=== PATIENT | male | born 1985 | race Hispanic/Latino ===

== ENCOUNTER 2019-10-29 18:27 | Inpatient (IN) | payer SELFPAY ==
[2019-10-29 18:48] LABS: #Basophils 0.1 thou/uL (0.0-0.2); #Eosinphils 0.2 thou/uL (0.0-0.7); #Lymphocytes 1.5 thou/uL (1.20-3.40); #Monocytes 0.7 thou/uL (0.11-0.59); #Neutrophils 4.2 thou/uL (1.40-6.50); %Basophils 1.6 % (0.0-1.0); %Eosinophils 3.5 % (0.0-10.0); %Lymphocytes 22.6 % (21.0-51.0); %Monocytes 10.6 % (0.0-10.0); %Neutrophils 61.7 % (42.0-75.0); Hemoglobin 11.6 g/dL (14.0-18.0); Mean Corpuscular HGB CONC 31.9 g/dL (32.0-36.0); Mean Platelet Volume 8.6 fL (7.4-10.4); Platelet Count 385 thou/uL (130-400); RBC Distribution Width 13.9 % (11.5-14.5); Red Blood Cell (RBC) Count 3.86 mill/uL (4.70-6.10); White Blood Cell (WBC) Count 6.8 thou/uL (4.8-10.8)
[2019-10-29 19:14] LABS: ALT (SGPT) 19 U/L (8-55); AST (SGOT) 20 U/L (5-34); Albumin 3.2 g/dL (3.5-5.0); Alkaline Phosphatase 218 U/L (40-110); Anion Gap 17 mmol/L (10-20); BUN (Urea Nitrogen) 70 mg/dL (8.9-20.6); Bilirubin, Total 0.4 mg/dL (0.2-1.2); Calc. Creatinine Clearance 0 mL/min (70-130); Calcium 6.5 mg/dL (7.8-10.44); Carbon Dioxide 25 mmol/L (22-29); Chloride 102 mmol/L (98-107); Estimated GFR-MDRD 8; Globulin 3.8 g/dL (2.4-3.5); Glucose 117 mg/dL (70-105); Potassium 5.3 mmol/L (3.5-5.1); Sodium 139 mmol/L (136-145)
[2019-10-30] MEDS ORDERED: hydrALAZINE 20 MG/ML VIAL SLOW IVP PRN (00:01)
[2019-10-30 00:02] VITALS: BMI 29.0
[2019-10-30] MEDS ORDERED: Acetaminophen 325 MG TAB PO PRN (00:42)
[2019-10-30] MEDS ORDERED: HYDROcodone/Acetaminophen 5/325 mg Tablet PO PRN (00:42)
[2019-10-30] MEDS ORDERED: Dextrose 50% Abboject 50 ML SYRINGE SLOW IVP PRN (00:42)
[2019-10-30] MEDS ORDERED: Ondansetron PF 4 MG/2 ML Vial IVP PRN (00:42)
[2019-10-30] MEDS ORDERED: HumaLOG 300 UNITS/3 ML VIAL SC PRN (00:42)
[2019-10-30] MEDS ORDERED: Dextrose 5% in Water 1,000 ML IV PRN (00:42)
[2019-10-30] MEDS ORDERED: Furosemide 100 MG/10 ML VIAL SLOW IVP SCH (01:15)
[2019-10-30] MEDS ORDERED: Metolazone 5 MG TAB PO SCH (01:30)
[2019-10-30] MEDS ORDERED: Metoprolol Tartrate 50 MG TAB PO SCH (01:30)
[2019-10-30] MEDS: Furosemide 100 MG/10 ML VIAL SLOW IVP SCH ×2 (05:54→14:00)
[2019-10-30 06:07] LABS: #Basophils 0.1 thou/uL (0.0-0.2); #Eosinphils 0.2 thou/uL (0.0-0.7); #Lymphocytes 1.2 thou/uL (1.20-3.40); #Monocytes 0.6 thou/uL (0.11-0.59); #Neutrophils 3.7 thou/uL (1.40-6.50); %Basophils 1.7 % (0.0-1.0); %Eosinophils 3.3 % (0.0-10.0); %Lymphocytes 21.3 % (21.0-51.0); %Monocytes 10.9 % (0.0-10.0); %Neutrophils 62.9 % (42.0-75.0); Hemoglobin 11.1 g/dL (14.0-18.0); Mean Corpuscular HGB CONC 33.2 g/dL (32.0-36.0); Mean Corpuscular Hemoglobin 31.1 pg (27.0-31.0); Mean Corpuscular Volume 93.9 fL (78.0-98.0); Mean Platelet Volume 8.3 fL (7.4-10.4); Platelet Count 324 thou/uL (130-400); RBC Distribution Width 13.6 % (11.5-14.5); Red Blood Cell (RBC) Count 3.55 mill/uL (4.70-6.10); White Blood Cell (WBC) Count 5.9 thou/uL (4.8-10.8)
[2019-10-30 06:24] LABS: Albumin 3.1 g/dL (3.5-5.0); Anion Gap 18 mmol/L (10-20); BUN (Urea Nitrogen) 74 mg/dL (8.9-20.6); BUN/Creatinine Ratio 8.86; Calc. Creatinine Clearance 14 mL/min (70-130); Calcium 6.5 mg/dL (7.8-10.44); Carbon Dioxide 22 mmol/L (22-29); Chloride 107 mmol/L (98-107); Estimated GFR-MDRD 7; Glucose 83 mg/dL (70-105); Phosphorus 6.4 mg/dL (2.3-4.7); Potassium 5.2 mmol/L (3.5-5.1); Sodium 142 mmol/L (136-145)
[2019-10-30] MEDS: Calcium Carbonate 500 MG ChewTAB PO SCH ×2 (09:18→20:07)
[2019-10-30] MEDS: Heparin 5,000 UNITS/ML VIAL SC SCH ×2 (09:19→20:07)
[2019-10-30] MEDS: Famotidine 20 MG TAB PO SCH (09:19)
[2019-10-30] MEDS: Metolazone 5 MG TAB PO SCH ×2 (09:20→18:46)
[2019-10-30] MEDS: Metoprolol Tartrate 50 MG TAB PO SCH ×2 (10:21→20:07)
--- NOTE | 2019-10-30 11:52 | CON ---
DATE OF CONSULTATION: HISTORY OF PRESENT ILLNESS: Mr. Barnett is a 34-year-old male, who was admitted for his chronic renal failure. He was initially evaluated at [place] [facility], was noted to have elevated potassium. At that time, this was observed and he was sent here for further management. Recheck potassium showed it was less than 6. We are now being consulted for his hemodialysis. Please note, this patient was initially admitted at [facility]. He underwent daily dialysis. Due to insurance issues, the patient will discharge without any outpatient dialysis placement. REVIEW OF SYSTEMS: No chest pain or shortness of breath. Positive for leg edema. No nausea. No vomiting. No diarrhea. No constipation. No productive cough. No fever or chills. No headache. No diplopia. No syncopal episode. No sore throat. No hematochezia. No melena. No hematemesis. MEDICATIONS: 1. Calcium carbonate 1000 mg p.o. b.i.d. 2. Famotidine 20 mg daily. 3. Furosemide 80 mg IV daily. 4. Heparin 5000 units subcu b.i.d. 5. Humalog sliding scale. 6. Hydrocodone one tab q.4 p.r.n. 7. Metoprolol tartrate 50 mg b.i.d. PAST MEDICAL HISTORY: 1. Chronic renal failure of uncertain etiology. 2. Longstanding hypertension. PAST SURGICAL HISTORY: 1. Status post eye surgery. 2. Status post hemodialysis catheter placement. SOCIAL HISTORY: The patient lives in [place]. 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 He is . No children. No smoking. No alcohol intake. Education, primary grade. No IV drug abuse. No alcohol use. ALLERGIES: UNKNOWN. TRAUMA: None. IMMUNIZATION: Unknown. HOSPITALIZATIONS: Please see past medical history. FAMILY HISTORY: No family history of ESRD. PHYSICAL EXAMINATION: VITAL SIGNS: Blood pressure 156/93, heart rate 77, respiratory rate 18, temperature 98.4, and pulse ox 97%. GENERAL: The patient is awake, alert, comfortable, not in overt distress. SKIN: Adequate turgor. HEENT: He has pinkish conjunctivae. Anicteric sclerae. No neck mass. No carotid bruits. No JVD. CHEST: No deformities. LUNGS: Clear breath sounds. HEART: Normal sinus rhythm. No murmur. No gallops. No rubs. ABDOMEN: Globular, soft, nontender. No masses. EXTREMITIES: No edema. No deformities. NEUROLOGIC: Awake, oriented to 3 spheres. Moving all extremities. No tremors. No asterixis. No ataxia. LABORATORY DATA: October 30, 2019; sodium 142, potassium 5.2, chloride 107, carbon dioxide 22, BUN 74, creatinine 8.35, glucose 83, calcium 6.5, phosphorus 6.4, albumin 3.1. ASSESSMENT/PLAN: 1. Chronic renal failure, uncertain etiology. I was reviewing the [facility] lab work and he had ? of kappa light change. This patient may eventually need hematologic evaluation and/or renal biopsy. Due to insurance issues, the patient cannot do outpatient renal biopsy. Due to the advanced renal dysfunction, we will be dialyzing this patient. Surgical consult has been done for placement of a temporary femoral dialysis catheter. He eventually will be referred to either Dr. Seay or Dr. Mcdonald for placement of a cuffed hemodialysis catheter as well as AV fistula placement. My plan is to do daily dialysis with this patient. 2. Hyperphosphatemia/hypocalcemia. Start PhosLo 667 mg one tablet t.i.d. with meals. We will be doing several serologies with this patient. 3. We will start hemodialysis once the femoral dialysis catheter is placed. Job ID: [id number]
[2019-10-30] MEDS: Calcium Acetate 667 MG CAP PO SCH ×2 (12:00→18:44)
[2019-10-30] MEDS ORDERED: Lidocaine 1% (PF) 30 ML VIAL ONE (12:18)
[2019-10-30] MEDS ORDERED: Morphine 4 MG/ML VIAL ONE (13:13)
[2019-10-30] MEDS ORDERED: Morphine 4 MG/ML VIAL SLOW IVP SCH (13:15)
--- NOTE | 2019-10-30 15:21 | PDOC.HOSPP ---
- Subjective Encounter Date: 10/30/19 Encounter Time: 08:31 Subjective: 34 y/o male with CKD requirining HD recently discharged from another hospital admitted for treatment of hyperkalemia. Hemodialyis is planned. - Objective Vital Signs & Weight: Vital Signs (12 hours) Temp Pulse Resp BP BP Pulse Ox 10/30/19 08:00 98.4 F 77 18 156/93 H 97 10/30/19 03:45 98.7 F 72 16 147/94 H 99 Weight Weight 169 lb I&O: 10/29/19 10/30/19 10/31/19 06:59 06:59 06:59 Intake Total 240 Output Total 400 200 Balance -160 -200 Result Diagrams: 10/30/19 05:53 10/30/19 05:53 Additional Labs: Accuchecks 10/30/19 10/30/19 11:02 06:02 POC Glucose 77 86 Hospitalist ROS - Medication Medications: Active Medications Generic Name Dose Route Start Last Admin Trade Name Freq PRN Reason Stop Dose Admin Calcium Carbonate 1,000 mg 10/30/19 09:00 10/30/19 09:18 Tums PO Not Given BID [facility] Famotidine 20 mg 10/30/19 09:00 10/30/19 09:19 Pepcid PO Not Given DAILY [facility] Furosemide 80 mg 10/30/19 06:00 10/30/19 05:54 Lasix SLOW IVP 80 mg 0600,1400 LIZZ Administration Heparin Sodium (Porcine) 5,000 units 10/30/19 09:00 10/30/19 09:19 Heparin SC Not Given BID [facility] Metolazone 5 mg 10/30/19 09:00 10/30/19 09:20 Zaroxolyn PO Not Given 0900,1700 [facility] Metoprolol Tartrate 50 mg 10/30/19 09:00 10/30/19 10:21 Lopressor PO Not Given BID [facility] - Exam General Appearance: awake alert Eye: anicteric sclera ENT: normocephalic atraumatic, moist mucosa Neck: supple Heart: RRR, no murmur Respiratory: no wheezes, no ronchi, normal chest expansion Gastrointestinal: soft, non-tender, non-distended, normal bowel sounds Extremities: 2+ LE edema Neurological: cranial nerve grossly intact, no focal deficits Psychiatric: A&O x 3 Hosp A/P (1) ESRD (end stage renal disease) Code(s): N18.6 - END STAGE RENAL DISEASE Status: Acute (2) Hypocalcemia Code(s): E83.51 - HYPOCALCEMIA Status: Acute (3) Hyperphosphatemia Code(s): E83.39 - OTHER DISORDERS OF PHOSPHORUS METABOLISM Status: Acute (4) Hyperkalemia Code(s): E87.5 - HYPERKALEMIA Status: Acute (5) Volume overload Code(s): E87.70 - FLUID OVERLOAD, UNSPECIFIED Status: Acute (6) HTN (hypertension) Code(s): I10 - ESSENTIAL (PRIMARY) HYPERTENSION Status: Acute - Plan Start diuretics. Hemodialysis as per Nephrology Replete electrolytes as needed. Get Vit D.
--- NOTE | 2019-10-30 16:34 | OP ---
DATE OF PROCEDURE: 10/30/2019 PREOPERATIVE DIAGNOSIS: Chronic renal failure. POSTOPERATIVE DIAGNOSIS: Chronic renal failure. PROCEDURE PERFORMED: Placement of left femoral triple-lumen Trialysis catheter. ANESTHESIA: Local. INDICATIONS FOR PROCEDURE: A 34-year-old man, presented with end-stage renal disease. I was asked to place a temporary dialysis access to facilitate hemodialysis. DESCRIPTION OF PROCEDURE: Informed consent was obtained from the patient and was placed in the supine position. First, the right groin was sterilely prepped and draped in the usual fashion. The right femoral artery was palpated, and the skin medial to this was anesthetized with 1% lidocaine. The right femoral vein was then cannulated with an 18-gauge introducer needle. Guidewire was passed through the needle and attempt to advance this into the right femoral vein multiple times was without success. We then elected to abandon the right groin. Pressure was held to achieve hemostasis. Using a new set and a new gown, glove, and dressing, we approached the left groin, which was separately sterilely prepped and draped in the usual fashion. Left femoral artery was palpated, and the skin medial to this was then anesthetized with 1% lidocaine at the groin. The left femoral vein was cannulated with an 18-gauge introducer needle returning dark venous blood. Guidewire was passed through the needle and advanced to the left femoral vein without resistance. Needle was withdrawn over the guidewire. A stab incision was made adjacent to the guidewire using 11 scalpel. Dilator was passed over the guidewire dilating the subcutaneous tissues and advanced into the left femoral vein. The dilator was removed and a triple-lumen Trialysis catheter was then advanced over the guidewire and placed in the left femoral vein advancing this down to the hub. Guidewire was removed. Dark venous blood was aspirated from all three ports, which were individually flushed with saline, followed by heparin. Catheter was secured to the left groin using 3-0 nylon suture at two points. Sterile dressings were applied. The patient tolerated this procedure without any apparent complication, and we will proceed with hemodialysis at the discretion of the nephrology service. Job ID: [id number]
[2019-10-30 23:18] LABS: Bacteria/HPF 1+ HPF (None Seen); Bilirubin Negative (Negative); Blood, Urine 1+ (Negative); Clarity Clear (Clear); Glucose, Urine (Dipstick) 50 mg/dL (Negative); Leukocyte Negative Leu/uL (Negative); Nitrite Negative (Negative); Protein, Urine (Dipstick) 300 mg/dL (Neg-Trace); RBC/HPF 0-3 HPF (0-3); Squamous Epithelial None Seen HPF (0-3); Urobilinogen Normal mg/dL (Less than 2)
[2019-10-31 04:20] LABS: Anion Gap 13 mmol/L (10-20); BUN (Urea Nitrogen) 46 mg/dL (8.9-20.6); Calc. Creatinine Clearance 18 mL/min (70-130); Calcium 7.3 mg/dL (7.8-10.44); Carbon Dioxide 29 mmol/L (22-29); Chloride 104 mmol/L (98-107); Estimated GFR-MDRD 11; Glucose 72 mg/dL (70-105); Phosphorus 5.2 mg/dL (2.3-4.7); Potassium 4.4 mmol/L (3.5-5.1); Sodium 142 mmol/L (136-145)
[2019-10-31 05:23] LABS: Hemoglobin 10.1 g/dL (14.0-18.0); MDiff Complete? YES; Mean Corpuscular HGB CONC 32.7 g/dL (32.0-36.0); Mean Corpuscular Hemoglobin 30.5 pg (27.0-31.0); Mean Corpuscular Volume 93.3 fL (78.0-98.0); Mean Platelet Volume 8.6 fL (7.4-10.4); Platelet Count 318 thou/uL (130-400); RBC Distribution Width 13.7 % (11.5-14.5); Red Blood Cell (RBC) Count 3.31 mill/uL (4.70-6.10); White Blood Cell (WBC) Count 5.8 thou/uL (4.8-10.8)
[2019-10-31 05:24] LABS: Band 1 % (5-11); Eosinophils 5 % (0-10); Lymphocytes 28 % (21-51); Monocytes 14 % (0-10); Neutrophil 50 % (42-75); Platelet Morphology Comment Appears Adequate
[2019-10-31] MEDS: Furosemide 100 MG/10 ML VIAL SLOW IVP SCH (05:34)
--- NOTE | 2019-10-31 07:25 | PDOC.HOSPP ---
- Subjective Encounter Date: 10/31/19 Encounter Time: 07:22 Subjective: 34 y/o male with CKD requirining HD recently discharged from another hospital admitted for treatment of hyperkalemia. Had Hd yesterday. - Objective Vital Signs & Weight: Vital Signs (12 hours) Temp Pulse Resp BP Pulse Ox 10/30/19 20:00 98.5 F 91 16 160/90 H 97 Weight Weight 169 lb I&O: 10/30/19 10/31/19 11/01/19 06:59 06:59 06:59 Intake Total 240 2040 Output Total 400 1550 Balance -160 490 Result Diagrams: 10/31/19 03:33 10/31/19 03:33 Additional Labs: Accuchecks 10/31/19 10/30/19 10/30/19 05:37 20:18 11:02 POC Glucose 69 L 92 77 Hospitalist ROS - Medication Medications: Active Medications Generic Name Dose Route Start Last Admin Trade Name Freq PRN Reason Stop Dose Admin Calcium Acetate 1,334 mg 10/30/19 12:00 10/30/19 18:44 Phoslo PO 1,334 mg TID-WM LIZZ Administration Calcium Carbonate 1,000 mg 10/30/19 09:00 10/30/19 20:07 Tums PO 1,000 mg BID [facility] Administration Famotidine 20 mg 10/30/19 09:00 10/30/19 09:19 Pepcid PO Not Given DAILY [facility] Furosemide 80 mg 10/30/19 06:00 10/31/19 05:34 Lasix SLOW IVP 80 mg 0600,1400 LIZZ Administration Heparin Sodium (Porcine) 5,000 units 10/30/19 09:00 10/30/19 20:07 Heparin SC 5,000 units BID LIZZ Administration Metolazone 5 mg 10/30/19 09:00 10/30/19 18:46 Zaroxolyn PO 5 mg 0900,1700 LIZZ Administration Metoprolol Tartrate 50 mg 10/30/19 09:00 10/30/19 20:07 Lopressor PO 50 mg BID LIZZ Administration - Exam General Appearance: awake alert Eye: anicteric sclera ENT: normocephalic atraumatic Neck: symmetric, no JVD Heart: RRR Respiratory: no wheezes, no rales, no ronchi, normal chest expansion Gastrointestinal: soft, non-tender, non-distended, normal bowel sounds Extremities: 2+ LE edema Neurological: cranial nerve grossly intact, no focal deficits Psychiatric: A&O x 3 Hosp A/P (1) Hyperkalemia Code(s): E87.5 - HYPERKALEMIA Status: Acute (2) Acute renal failure (ARF) Status: Acute (3) Hypocalcemia Code(s): E83.51 - HYPOCALCEMIA Status: Acute (4) Hyperphosphatemia Code(s): E83.39 - OTHER DISORDERS OF PHOSPHORUS METABOLISM Status: Acute (5) Volume overload Code(s): E87.70 - FLUID OVERLOAD, UNSPECIFIED Status: Acute (6) HTN (hypertension) Code(s): I10 - ESSENTIAL (PRIMARY) HYPERTENSION Status: Acute - Plan Dialysis as per renal continue diuretics. Adjust antihypertensives to get adequate BP control.
[2019-10-31] MEDS: Calcium Acetate 667 MG CAP PO SCH ×3 (08:50→17:50)
[2019-10-31] MEDS: Heparin 5,000 UNITS/ML VIAL SC SCH ×2 (09:06→20:35)
[2019-10-31] MEDS: Metolazone 5 MG TAB PO SCH ×2 (09:06→17:50)
[2019-10-31] MEDS: Metoprolol Tartrate 50 MG TAB PO SCH (09:06)
[2019-10-31] MEDS: Calcium Carbonate 500 MG ChewTAB PO SCH (09:06)
[2019-10-31] MEDS: Famotidine 20 MG TAB PO SCH (09:06)
--- NOTE | 2019-10-31 10:36 | PRG ---
DATE OF SERVICE: 10/31/2019 SUBJECTIVE: Mr. Barnett is a 34-year-old male, admitted for his chronic renal failure. He is currently undergoing hemodialysis. They were unable to place outpatient dialysis due to insurance issues. He has no new complaints today. He did undergo hemodialysis yesterday. My plan is to do another dialysis treatment. Surgical consult will be done with Dr. Seay/Harry for AV fistula placement. No new complaints. OBJECTIVE: VITAL SIGNS: Blood pressure 170/89, heart rate 75, respiratory rate 18, temperature 98.3, and pulse ox 96%. GENERAL: Noted to be awake, alert, comfortable, not in distress. SKIN: Adequate turgor. HEENT: He has pinkish conjunctivae. Anicteric sclerae. NECK: No neck mass. No carotid bruits. No JVD. CHEST: No deformities. LUNGS: Clear breath sounds. No wheezing. No crackles. HEART: Normal sinus rhythm. No murmur. No gallops. No rubs. ABDOMEN: Globular, soft, nontender. No masses. EXTREMITIES: No edema. No deformities. MEDICATIONS: Medications of October 31, 2019, was reviewed. LABORATORY DATA: Laboratories of October 31, 2019; white count 5.8, hemoglobin 10.1. Sodium 142, potassium 4.4, chloride 104, carbon dioxide 29, BUN 46, creatinine 6.16, calcium 7.3, PTH 401.9, phosphorus 5.2, vitamin D is 12.8. Urinalysis shows protein of 300. MIKEL, ANCA pending. ASSESSMENT AND PLAN: 1. Chronic renal failure/end-stage renal disease, hemodialysis today and tomorrow again. Fluid removal only as tolerated. 2. Surgical referral for arteriovenous fistula placement has been made as well as for a cuffed dialysis catheter placement. He does have a temporary femoral dialysis catheter. 3. Secondary hyperparathyroidism, calcitriol 0.25 mcg tablet daily. 4. Hyperphosphatemia. Start PhosLo. 5. Hypocalcemia. The patient is already on calcium supplementation. Overall, agree with current management. Recheck basic metabolic panel, CBC, PT, PTT in a.m. Consult surgery for arteriovenous fistula. Job ID: [id number]
[2019-10-31] MEDS ORDERED: Heparin 10,000 UNITS/1 ML VIAL ONE (11:19)
[2019-11-01 04:49] LABS: PTT 28.4 SEC (22.9-36.1); Prothrombin Time 13.5 SEC (12.0-14.7)
[2019-11-01 05:17] LABS: Albumin 2.6 g/dL (3.5-5.0); Anion Gap 12 mmol/L (10-20); BUN (Urea Nitrogen) 28 mg/dL (8.9-20.6); BUN/Creatinine Ratio 5.59; Calc. Creatinine Clearance 23 mL/min (70-130); Calcium 7.2 mg/dL (7.8-10.44); Carbon Dioxide 31 mmol/L (22-29); Chloride 102 mmol/L (98-107); Estimated GFR-MDRD 13; Glucose 114 mg/dL (70-105); Phosphorus 4.5 mg/dL (2.3-4.7); Potassium 3.9 mmol/L (3.5-5.1); Sodium 141 mmol/L (136-145)
[2019-11-01 05:37] LABS: Band 1 % (5-11); Eosinophils 3 % (0-10); Hemoglobin 10.3 g/dL (14.0-18.0); Lymphocytes 15 % (21-51); MDiff Complete? YES; Mean Corpuscular HGB CONC 32.5 g/dL (32.0-36.0); Mean Corpuscular Hemoglobin 30.7 pg (27.0-31.0); Mean Corpuscular Volume 94.5 fL (78.0-98.0); Mean Platelet Volume 8.5 fL (7.4-10.4); Monocytes 12 % (0-10); Neutrophil 69 % (42-75); Platelet Count 314 thou/uL (130-400); RBC Distribution Width 13.9 % (11.5-14.5); Red Blood Cell (RBC) Count 3.34 mill/uL (4.70-6.10); Schistocytes SLIGHT = 2-5 cells (100X) (0-1/hpf); White Blood Cell (WBC) Count 6.7 thou/uL (4.8-10.8)
[2019-11-01] MEDS ORDERED: CEFAZOLIN 2 GM in Premix Bag 1 BAG IVPB SCH (07:30)
--- NOTE | 2019-11-01 08:05 | HP ---
PRESENTING COMPLAINT: Referred for elevated potassium. HISTORY OF PRESENT ILLNESS: Anibal Wade is a 34-year-old male with past medical history of hypertension, on lisinopril; diabetes mellitus type 2, diagnosed 3 years ago; recently diagnosed ESRD during hospitalization at [facility] one week ago. He received temporary catheter was removed and he was discharged home. [facility], where repeat labs show potassium of 7.1. He was asked to come to the ED. Repeat potassium in the ED was down to 5.3. The patient admits to regular and food intake. He denies any shortness of breath, but admits to persistent body swelling. He admits to still making urine with no change in urine volume. He denies any hematuria or proteinuria and there is no family history of dialysis use. PAST MEDICAL HISTORY: Hypertension recently, diabetes mellitus x 3 years. SOCIAL HISTORY: The patient denies any tobacco, alcohol, or illicit drug use. He is undocumented immigrant. PAST SURGICAL HISTORY: None. ALLERGIES: NO KNOWN DRUG ALLERGIES. HOME MEDICATIONS: Lisinopril 10 mg daily. FAMILY HISTORY: No history of ESRD. REVIEW OF SYSTEMS: All systems reviewed, x14 were negative except as mentioned above. PHYSICAL EXAMINATION: VITAL SIGNS: Current vitals; blood pressure of 172/105, pulse of 96, respiratory rate of 16, O2 saturation 99% on room air, temperature 98.6. GENERAL: Young male, overweight, not in any distress. HEENT: Head is atraumatic, normocephalic. Pupils equal, reactive to light. [place] conjunctivae. Moist oral mucosa. NECK: No JVD. No carotid bruit. RESPIRATORY: Mild bibasilar crepitations, but good air entry. CARDIOVASCULAR: S1 and S2. Rate and rhythm regular. GI: Abdomen full, soft. Bowel sounds positive. No organomegaly. EXTREMITIES: 2+ pedal edema bilaterally up to the mid palomares. No calf tenderness. NEUROLOGICAL: The patient is alert, oriented, conversant. Sister at bedside providing interpretation. LABORATORY DATA: Potassium 5.3, bicarb 25, BUN 70, creatinine 8, calcium 6.5, glucose 117, albumin 3.2, hemoglobin 11.6, WBC 6.8, platelets 385 with no bands. IMPRESSION: 1. Hyperkalemia. 2. End-stage renal disease. 3. History of diet-controlled diabetes mellitus. 4. Hypertension. PLAN: 1. Hyperkalemia. We will admit the patient to observation given undocumented status. We will consult Nephrology for possible PermCath placement with scheduled weekly dialysis if feasible or AVF creation and p.r.n. dialysis via AV fistula. At this time, there is no urgency to dialysis now. Since the patient is nonoliguric, we will start the patient on IV Lasix with metolazone to aid potassium excretion as well as control the patient's volume status. Follow repeat BMP in a.m. We will treat mild hypocalcemia with starting Tums. Follow phosphorus level. We will hold for the lisinopril use as it is contributing to hyperkalemia. We will do metoprolol for blood pressure control at this time. We will dose IV Lasix 80 mg x1 now. 2. DVT prophylaxis with subcutaneous heparin at q.12. 3. Advanced directives. The patient is full code. We will consult Case Management to help with manager of financial reporting. Job ID: [id number]
[2019-11-01] MEDS: Calcium Acetate 667 MG CAP PO SCH ×3 (08:12→17:19)
[2019-11-01] MEDS: Famotidine 20 MG TAB PO SCH (08:12)
[2019-11-01] MEDS: Metolazone 5 MG TAB PO SCH ×2 (08:13→17:19)
[2019-11-01] MEDS: Calcitriol 0.25 MCG CAP PO SCH (08:13)
[2019-11-01] MEDS: Heparin 5,000 UNITS/ML VIAL SC SCH ×2 (08:15→20:18)
--- NOTE | 2019-11-01 09:07 | PRG ---
DATE OF SERVICE: 11/01/2019 SUBJECTIVE: Mr. Barnett is a 34-year-old white male with chronic renal failure and undergoing hemodialysis. He is unable to do outpatient dialysis due to insurance issues. Surgical consult has been done with Dr. Seay for AV fistula/cuffed hemodialysis catheter placement. No new complaints today. He underwent dialysis yesterday without any difficulty. No complaints of chest pain or shortness of breath. OBJECTIVE: VITAL SIGNS: Blood pressure 165/90, heart rate 96, respiratory rate 16, temperature 98.2, and pulse ox 98% on room air. GENERAL: Awake, alert, and comfortable, not in distress. SKIN: Adequate turgor. HEENT: He has pinkish conjunctivae. Anicteric sclerae. NECK: No neck mass. No carotid bruits. No JVD. CHEST: No deformities. LUNGS: Clear breath sounds. No wheezing. No crackles. HEART: Normal sinus rhythm. No murmurs. No gallops. No rubs. ABDOMEN: Globular, soft, and nontender. No masses. EXTREMITIES: No edema. No deformities. MEDICATIONS: Medications of November 01, 2019, were reviewed. LABORATORY DATA: Laboratories of November 01, 2019; white count 6.7, hemoglobin 10.3. Sodium 141, potassium 3.9, chloride 102, carbon dioxide 31, BUN 58, creatinine 5.01, glucose 114, calcium 7.2, and albumin 2.6. ASSESSMENT AND PLAN: 1. End-stage renal disease/chronic renal failure, hemodialysis 3 times a week. Awaiting placement of arteriovenous fistula and cuffed hemodialysis catheter. 2. Hyperphosphatemia, currently on PhosLo. 3. Elevated PTH - calcitriol has been initiated. Continue current management. Awaiting permanent access placement. Recheck basic metabolic and CBC in a.m. Job ID: [id number]
--- NOTE | 2019-11-01 09:07 | PDOC.HOSPP ---
- Subjective Encounter Date: 11/01/19 Encounter Time: 12:40 Subjective: Patient without complaints. Had tunneled cath and AV fistula done this AM - Objective Vital Signs & Weight: Vital Signs (12 hours) Temp Pulse Resp BP Pulse Ox 11/01/19 07:34 98.2 F 96 16 165/90 H 98 Weight Weight 169 lb I&O: 10/31/19 11/01/19 11/02/19 06:59 06:59 06:59 Intake Total 2040 3175 Output Total 1550 3850 Balance 490 -675 Result Diagrams: 11/01/19 04:06 11/01/19 04:06 Additional Labs: Accuchecks 11/01/19 10/31/19 10/31/19 05:37 20:37 16:07 POC Glucose 111 H 118 H 137 H 10/31/19 10:53 POC Glucose 114 H Hospitalist ROS - Review of Systems Constitutional: denies: fever, chills Respiratory: denies: cough, shortness of breath Cardiovascular: denies: chest pain, palpitations Gastrointestinal: denies: nausea, vomiting, abdominal pain - Medication Medications: Active Medications Generic Name Dose Route Start Last Admin Trade Name Freq PRN Reason Stop Dose Admin Calcitriol 0.25 mcg 11/01/19 09:00 11/01/19 08:13 Rocaltrol PO Not Given DAILY [facility] Calcium Acetate 1,334 mg 10/30/19 12:00 11/01/19 08:12 Phoslo PO Not Given TID-WM [facility] Famotidine 20 mg 10/30/19 09:00 11/01/19 08:12 Pepcid PO Not Given DAILY [facility] Heparin Sodium (Porcine) 5,000 units 10/30/19 09:00 11/01/19 08:15 Heparin SC Not Given BID [facility] Metolazone 5 mg 10/30/19 09:00 11/01/19 08:13 Zaroxolyn PO Not Given 0900,1700 [facility] - Exam General Appearance: NAD Eye: anicteric sclera ENT: moist mucosa Heart: RRR, no murmur, no gallops, no rubs Respiratory: CTAB, no wheezes, no rales, no ronchi Respiratory - other findings: right upper chest with tunneled dialysis cath in place Gastrointestinal: soft, non-tender, non-distended, normal bowel sounds Extremities - other findings: right wrist AV fistula incision C/D/I Psychiatric: normal affect, normal behavior Hosp A/P (1) Chronic renal failure, stage 5 Code(s): N18.5 - CHRONIC KIDNEY DISEASE, STAGE 5 Status: Acute Plan: initiating dialysis, cuffed dialysis catheter and AV fistula placement done (2) Hyperkalemia Code(s): E87.5 - HYPERKALEMIA Status: Resolved (3) Hyperphosphatemia Code(s): E83.39 - OTHER DISORDERS OF PHOSPHORUS METABOLISM Status: Resolved Plan: on Phoslo (4) Hypocalcemia Code(s): E83.51 - HYPOCALCEMIA Status: Acute Plan: on calcium supplementation and calcitriol (5) HTN (hypertension) Code(s): I10 - ESSENTIAL (PRIMARY) HYPERTENSION Status: Chronic Qualifiers: Hypertension type: essential hypertension Qualified Code(s): I10 - Essential (primary) hypertension (6) Volume overload Code(s): E87.70 - FLUID OVERLOAD, UNSPECIFIED Status: Resolved
[2019-11-01] MEDS ORDERED: Fentanyl 100 MCG/2 ML VIAL ONE (09:40)
[2019-11-01] MEDS ORDERED: Midazolam HCl 2 mg/2 ml Vial ONE (09:40)
[2019-11-01] MEDS ORDERED: Heparin 5,000 UNITS/ML VIAL ONE (09:45)
[2019-11-01] MEDS ORDERED: Protamine Sulfate 50 MG/5 ML VIAL ONE (09:45)
[2019-11-01] MEDS ORDERED: Sodium Chloride 0.9% 20 ML ONE (09:45)
[2019-11-01] MEDS ORDERED: Lidocaine 2% w/Epinephrine 1:200K 20 ML VIAL ONE (09:45)
[2019-11-01] MEDS ORDERED: Heparin 10,000 UNITS/1 ML VIAL ONE (09:45)
[2019-11-01] MEDS ORDERED: Bupivacaine PF 0.5% 30 ML VIAL ONE (09:45)
--- NOTE | 2019-11-01 10:00 | ULT ---
BILATERAL UPPER EXTREMITY VENOUS ULTRASOUND: TECHNIQUE: Huffman-scale and Doppler color-flow with spectral analysis. CLINICAL HISTORY: ESRD. FINDINGS: Right upper extremity: Brachial artery 4.1 mm. Radial artery 1.9 mm. Ulnar artery 1.7 mm. Cephalic size: 2.5 mm 2.7 mm 3.0 mm 3.7 mm 1.7 mm 1.8 mm 0.8 mm Left upper extremity: Brachial artery 3.3 mm. Radial artery 1.3 mm. Ulnar artery 1.6 mm. Cephalic size: 3.2 mm 2.7 mm Partially occlusive thrombus 3.8 mm 1.6 mm 1.8 mm 1.2 mm Basilic size: 2.2 mm 2.0 mm 2.3 mm 1.6 mm 1.5 mm 0.6 mm 0.5 mm IMPRESSION: Bilateral upper extremity vein mapping, as above. Transcribed Date/Time: 11/01/2019 10:19 AM
[2019-11-01] MEDS ORDERED: traMADol HCl 50 MG TAB PO PRN (10:21)
[2019-11-01] MEDS ORDERED: Acetaminophen 500 MG TAB PO PRN (10:21)
--- NOTE | 2019-11-01 10:43 | CON ---
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 He was hospitalized recently at [facility], had a right IJ cuffed tunneled dialysis catheter placed, underwent dialysis, and then it was removed. He reports now in need of dialysis. He has had a temporary dialysis catheter placed over the weekend and dialyzed two sessions. He has had ultrasound vein mapping staff this morning revealing the right arm superior to the left. There is nonocclusive thrombus in his left upper arm cephalic vein. He has palpable radial pulses. Plan is to place a cuffed tunneled hemodialysis catheter, a central line, and a right arm AV fistula or graft. He understands risks and benefits and consents. ALLERGIES: NONE. SOCIAL HISTORY: Tobacco, none. Alcohol, none. MEDICATIONS: In the hospital, 1. Calcitriol. 2. PhosLo. 3. Pepcid. 4. Zaroxolyn. LABORATORY DATA: Accu-Cheks 114 to 137. ASSESSMENT AND PLAN: 1. End-stage renal disease, in need of dialysis access. He is followed by Dr. Farris. Plan is to place a right IJ cuffed tunneled dialysis catheter and a central line to protect his veins as he already has a nonocclusive thrombus in the left upper arm cephalic vein. He is right-handed, and his veins were superior by vein mapping on the right. We will plan right arm primary fistula with less likely dialysis graft. 2. Illegal immigrant, difficult outpatient dialysis situation. He will probably need to return to [place] for dialysis versus having catastrophic dialysis. It is unlikely to be able to afford outpatient dialysis. Job ID: [id number]
[2019-11-01] MEDS ORDERED: Ondansetron HCl/PF 4 MG/2 ML Vial IVP PRN (12:09)
[2019-11-01] MEDS ORDERED: Promethazine HCl 25 MG/ML VIAL IM PRN (12:09)
[2019-11-01] MEDS ORDERED: Promethazine HCl 25 MG/ML VIAL SLOW IVP PRN (12:09)
--- NOTE | 2019-11-01 12:46 | RAD ---
FRONTAL VIEW CHEST: CLINICAL HISTORY: Dialysis. COMPARISON: No prior comparison. FINDINGS: There is abnormal hazy density throughout the majority of the right chest. Patchy left basilar opacit y is present. Tunneled right-sided vascular catheter is present and there is a partially imaged left venous catheter, terminating at the right atrial region. Cardiac silhouette and pulmonary vascul ature are prominent. No discrete pneumothorax within limitations is visualized. IMPRESSION: Findings favor fluid overload. Findings suggest pleural fluid superimposed upon edema. Followup to resolution is recommended. Transcribed Date/Time: 11/01/2019 12:50 PM
[2019-11-01 13:06] LABS: ANA Symphony (Qualitative) Negative (Negative); ANA Symphony (Quantitative) 0.2 Ratio (< 0.7 Negative); dsDNA IgG Antibody Less than 0.5 IU/mL (<10 Negative)
--- NOTE | 2019-11-01 16:26 | OP ---
DATE OF PROCEDURE: 11/01/2019 PREOPERATIVE DIAGNOSES: 1. End-stage renal disease. 2. Diabetes. POSTOPERATIVE DIAGNOSES: 1. End-stage renal disease. 2. Diabetes. PROCEDURES PERFORMED: 1. Right IJ cuffed tunneled hemodialysis catheter. 2. Left IJ central line, triple lumen. 3. Ultrasound and fluoroscopy use. 4. Right Nina fistula, calibrated to a 3.5 mm coronary dilator outflow, calcified radial artery, but patent. ANESTHESIA: General, local with 0.5% Marcaine 30 mL, mixed with 1% Xylocaine with epinephrine 30 mL. DESCRIPTION OF PROCEDURE: The patient was taken to the operating room, where under general anesthesia, neck and chest and right upper extremity were prepared with ChloraPrep and draped in routine fashion. Using ultrasound fluoroscopy, the right and left internal jugular vein hemodialysis catheter and triple-lumen catheter placed respectively using Seldinger technique and tunneling device. On the right side, the platysma was approximated with 4-0 Monocryl, skin with subdermal 4-0 Monocryl, catheter was secured with 3-0 nylon suture; and on the left side, the catheter was secured with 3-0 nylon suture. Each port aspirated blood, flushed with saline solution and heparinized saline solution on hemodialysis catheter. Sterile dressing was applied. Fluoroscopic images revealed good line placement, ultrasound used to cannulate the internal jugular vein for placement. Right Nina fistula performed by making an incision along suture since radial artery in the cephalic vein given the patient's cephalic vein dissected free, it has excellent caliber, calibrated to a 3.5 mm coronary dilator outflow after ligating the vein on the hand side and spatulating with Whitney scissors. Radial artery dissected free and a 2 cm anastomosis was created after spatulating the radial arteriotomy, created with 11 blade and continuous suture of 6-0 Prolene. Good Doppler signals noted on the outflow. Good hemostasis noted. Collateral branches divided between clips. Job ID: [id number]
[2019-11-02 04:20] LABS: Albumin 2.6 g/dL (3.5-5.0); Anion Gap 8 mmol/L (10-20); BUN (Urea Nitrogen) 35 mg/dL (8.9-20.6); BUN/Creatinine Ratio 5.78; Calc. Creatinine Clearance 19 mL/min (70-130); Calcium 6.9 mg/dL (7.8-10.44); Carbon Dioxide 34 mmol/L (22-29); Chloride 102 mmol/L (98-107); Estimated GFR-MDRD 11; Glucose 89 mg/dL (70-105); Phosphorus 5.2 mg/dL (2.3-4.7); Potassium 4.3 mmol/L (3.5-5.1); Sodium 140 mmol/L (136-145)
[2019-11-02 05:49] LABS: Band 2 % (5-11); Eosinophils 5 % (0-10); Lymphocytes 27 % (21-51); MDiff Complete? YES; Mean Corpuscular Hemoglobin 30.5 pg (27.0-31.0); Mean Corpuscular Volume 95.2 fL (78.0-98.0); Mean Platelet Volume 8.5 fL (7.4-10.4); Monocytes 8 % (0-10); Neutrophil 58 % (42-75); Ovalocytes SLIGHT = 2-5 cells (100X) (0-1/hpf); Platelet Count 306 thou/uL (130-400); RBC Distribution Width 13.9 % (11.5-14.5); Red Blood Cell (RBC) Count 3.27 mill/uL (4.70-6.10); White Blood Cell (WBC) Count 7.1 thou/uL (4.8-10.8)
[2019-11-02] MEDS ORDERED: Heparin 10,000 UNITS/1 ML VIAL ONE (07:29)
--- NOTE | 2019-11-02 09:06 | PDOC.HOSPP ---
- Subjective Encounter Date: 11/02/19 Encounter Time: 12:00 Subjective: Patient feeling well. No complaints. - Objective Vital Signs & Weight: Vital Signs (12 hours) Temp Pulse Resp BP Pulse Ox 11/02/19 00:01 98.3 F 80 16 142/81 H 94 L Weight Weight 169 lb I&O: 11/01/19 11/02/19 11/03/19 06:59 06:59 06:59 Intake Total 3175 0 Output Total 3850 Balance -675 0 Result Diagrams: 11/02/19 03:33 11/02/19 03:33 Additional Labs: Accuchecks 11/02/19 11/01/19 11/01/19 05:32 19:19 15:56 POC Glucose 83 105 117 H 11/01/19 13:30 POC Glucose 100 Hospitalist ROS - Review of Systems Constitutional: denies: fever, chills Respiratory: denies: cough, shortness of breath Cardiovascular: denies: chest pain, palpitations, orthopnea Gastrointestinal: denies: nausea, vomiting, abdominal pain - Medication Medications: Active Medications Generic Name Dose Route Start Last Admin Trade Name Freq PRN Reason Stop Dose Admin Calcitriol 0.25 mcg 11/01/19 09:00 11/01/19 08:13 Rocaltrol PO Not Given DAILY [facility] Calcium Acetate 1,334 mg 10/30/19 12:00 11/01/19 17:19 Phoslo PO 1,334 mg TID- LIZZ Administration Famotidine 20 mg 10/30/19 09:00 11/01/19 08:12 Pepcid PO Not Given DAILY [facility] Heparin Sodium (Porcine) 5,000 units 10/30/19 09:00 11/01/19 20:18 Heparin SC 5,000 units BID LIZZ Administration Tramadol HCl 50 mg 11/01/19 10:21 11/01/19 14:30 Ultram PO 50 mg Q4H PRN Administration Pain - Exam General Appearance: NAD Eye: anicteric sclera ENT: moist mucosa Heart: RRR, no murmur, no gallops, no rubs Respiratory: CTAB, no wheezes, no rales, no ronchi Gastrointestinal: soft, non-tender, non-distended, normal bowel sounds Psychiatric: normal affect, normal behavior, A&O x 3 Hosp A/P (1) Chronic renal failure, stage 5 Code(s): N18.5 - CHRONIC KIDNEY DISEASE, STAGE 5 Status: Acute (2) Hyperkalemia Code(s): E87.5 - HYPERKALEMIA Status: Resolved (3) Hyperphosphatemia Code(s): E83.39 - OTHER DISORDERS OF PHOSPHORUS METABOLISM Status: Resolved (4) Hypocalcemia Code(s): E83.51 - HYPOCALCEMIA Status: Acute (5) HTN (hypertension) Code(s): I10 - ESSENTIAL (PRIMARY) HYPERTENSION Status: Chronic Qualifiers: Hypertension type: essential hypertension Qualified Code(s): I10 - Essential (primary) hypertension (6) Volume overload Code(s): E87.70 - FLUID OVERLOAD, UNSPECIFIED Status: Resolved - Plan addiction social worker will need chronic dialysis but no insurance and not a citizen, will f/u with Dr. Farris in his clinic and go to the ER if needed
[2019-11-02] MEDS: Calcitriol 0.25 MCG CAP PO SCH ×2 (09:09→12:35)
[2019-11-02] MEDS: Calcium Acetate 667 MG CAP PO SCH ×2 (09:09→12:35)
[2019-11-02] MEDS: Famotidine 20 MG TAB PO SCH (09:09)
[2019-11-02] MEDS: Heparin 5,000 UNITS/ML VIAL SC SCH (09:09)
[2019-11-02] MEDS: Metolazone 5 MG TAB PO SCH (09:16)
--- NOTE | 2019-11-02 09:43 | PRG ---
DATE OF SERVICE: 11/02/2019 SUBJECTIVE: Mr. Barnett is a 34-year-old male, who was admitted for history of chronic renal failure/ESRD. He has undergone hemodialysis. In addition, Dr. Seay has placed an AV fistula and a cuffed hemodialysis catheter. Due to insurance issues, the patient is unable to proceed with outpatient dialysis. He is undergoing dialysis today. I did have a long discussion with the patient and I have spoken with his before regarding their situation. I did tell them that they can get in touch with the [facility] finisher brush to have them get their paperwork straighten out and hopefully in the future, he will qualify for outpatient dialysis. He has been told he can come back on a p.r.n. basis when he is clinically not feeling well. He will follow up with his PCP as well as in my clinic. OBJECTIVE: VITAL SIGNS: Blood pressure 142/81, heart rate 80, respiratory rate 16, temperature 98.3, and pulse ox 94%. GENERAL: Awake, alert, comfortable. SKIN: Adequate turgor. HEENT: He has slightly pale conjunctivae. Anicteric sclerae. No neck mass. No carotid bruits. No JVD. CHEST: No deformities. LUNGS: Clear breath sounds. HEART: Normal sinus rhythm. No murmur. No gallops. No rubs. ABDOMEN: Globular, soft, nontender. No masses. EXTREMITIES: No edema. No deformities. MEDICATIONS: Of November 02, 2019, reviewed. LABORATORY DATA: Of November 02, 2019: White count 7.1, hemoglobin 10. Sodium 140, potassium 4.3, chloride 102, carbon dioxide 34, BUN 35, creatinine 6.06, phosphorus 5.2, albumin 2.6. ASSESSMENT AND PLAN: 1. End-stage renal disease/chronic renal failure. Continue current hemodialysis while in the hospital. Due to the issues with his insurance, he is unable to proceed with outpatient dialysis. He will come back to any medical facility for emergent hemodialysis. He will follow up with his PCP and with my clinic. 2. Hyperphosphatemia. Continue phosphate binders. 3. Secondary hyperparathyroidism. Continue calcitriol. 4. Agree with current management. We will discontinue diuretics. The patient can be discharged at any time. Job ID: [id number]
[2019-11-02 10:11] LABS: A/G Ratio 0.8 (0.7-1.7); Albumin 2.5 g/dL (2.9-4.4); Alpha 1 0.2 g/dL (0.0-0.4); Alpha 2 0.8 g/dL (0.4-1.0); Beta 0.9 g/dL (0.7-1.3); Gamma 1.2 g/dL (0.4-1.8); Globulin, Total 3.1 g/dL (2.2-3.9); M-Spike Not Observed g/dL (Not Observed)
[2019-11-02 13:00] VITALS: BP 175/89; TEMP 97.7
--- NOTE | 2019-11-02 14:33 | EKG ---
Test Reason : Blood Pressure : / mmHG Vent. Rate : 104 BPM Atrial Rate : 104 BPM P-R Int : 142 ms QRS Dur : 086 ms QT Int : 368 ms P-R-T Axes : 029 125 010 degrees QTc Int : 483 ms Sinus tachycardia Right axis deviation Abnormal ECG Confirmed by ANGEL BASS DO ([id number]), digital editor VIANEY VAZQUEZ ([id number]) on 11/02/2019 2:33:09 PM Referred By: Confirmed By:ANGEL BASS DO
[2019-11-02 16:08] LABS: Cytoplasmic (C-ANCA) <1:20 titer (Neg:<1:20); Myeloperoxidase AutoAbs <9.0 U/mL (0.0-9.0); Perinuclear (P-ANCA) <1:20 titer (Neg:<1:20); Proteinase-3 AutoAbs Less than 3.5 U/mL (0.0-3.5)
--- NOTE | 2019-11-04 08:02 | DIS ---
DATE OF ADMISSION: 10/29/2019 DATE OF DISCHARGE: 11/02/2019 PRIMARY CARE PHYSICIAN: Teresita Ordaz. REASON FOR ADMISSION: Elevated potassium. DIAGNOSES AT DISCHARGE: 1. Hyperkalemia, resolved. 2. End-stage renal disease on dialysis. 3. Hyperphosphatemia. 4. Hypocalcemia. 5. Hypertension. 6. Diabetes mellitus type 2, not requiring any medications. PROCEDURES: 1. Right internal jugular cuffed tunneled hemodialysis catheter placement. 2. Right Nina fistula to the right forearm. 3. Left femoral triple-lumen catheter placement. 4. Left internal jugular vein catheter placement. CONSULTATIONS: 1. Nephrology, Dr. Farris. 2. General Surgery, Dr. Seay. SUMMARY OF HOSPITAL COURSE: This is a 34-year-old male with a history of hypertension and diabetes, diagnosed with end-stage renal disease in a hospitalization at [facility] one week ago. He had a temporary hemodialysis catheter that was placed there and discharged home. [facility] His potassium showed an elevation of 7.1 and was told to come to the ER. He had some general body swelling, but no other symptoms. The patient was admitted to the hospital. Dr. Farris was consulted and dialysis was instituted with resolution of his hyperkalemia. The patient had his blood sugars controlled with diet only. His blood pressure was running moderately high, so I am starting him on amlodipine at discharge. He had a tunneled hemodialysis catheter placed and also an AV fistula in his right forearm and is being discharged home. [place] and is not assistance, so he is unable to get outpatient dialysis scheduled, so he will follow up in Dr. Corcoran clinic and then go to the emergency room as needed. DISCHARGE MANAGEMENT: Discharged home. FOLLOWUP: Follow up with Dr. Farris in [address] Seay in 3 to 4 weeks. ACTIVITY: As tolerated. DIET: Renal diabetic diet. IV THERAPY INSTRUCTIONS: Central venous line care. DISCHARGE MEDICATIONS: 1. Amlodipine 5 mg daily, 30 tablets dispensed. 2. Calcitriol 0.25 mg daily, 30 capsules dispensed. 3. PhosLo 1334 mg 3 times a day, 90 capsules dispensed. Job ID: [id number]
[2019-11-04 15:10] LABS: Albumin-Ur 67.5 % (.); Alpha 1 - Ur 4.8 % (.); Alpha 2 - Ur 6.2 % (.); Beta-Ur 8.6 % (.); Gamma-Ur 12.9 % (.); M-Spike,% Not Observed % (Not Observed); Protein, Urine 703.2 mg/dL (Not Estab.)
== END 2019-11-02 14:48 | disposition home or self-care (01) | DRG 628 ==
LOC: ERS 18:27 → ONC 21:55
PROVIDERS: ADMIT Internal Medicine; ATTEND Internal Medicine
PROC: 06HN33Z Insertion of Infusion Device into Left Femoral Vein, Percutaneous Approach (ICD-10-PCS; 2019-10-30)
PROC: 5A1D70Z Performance of Urinary Filtration, Intermittent, Less than 6 Hours Per Day (ICD-10-PCS; 2019-10-30)
PROC: 031B3ZF Bypass Right Radial Artery to Lower Arm Vein, Percutaneous Approach (ICD-10-PCS; principal; 2019-11-01)
PROC: 02H633Z Insertion of Infusion Device into Right Atrium, Percutaneous Approach (ICD-10-PCS; 2019-11-01)
PROC: 0JH63XZ Insertion of Tunneled Vascular Access Device into Chest Subcutaneous Tissue and Fascia, Percutaneous Approach (ICD-10-PCS; 2019-11-01)
PROC: 05HM33Z Insertion of Infusion Device into Right Internal Jugular Vein, Percutaneous Approach (ICD-10-PCS; 2019-11-01)
PROC: B5131ZA Fluoroscopy of Right Jugular Veins using Low Osmolar Contrast, Guidance (ICD-10-PCS; 2019-11-01)
DX: E87.5 Hyperkalemia (principal); N18.6 End stage renal disease; N25.81 Secondary hyperparathyroidism of renal origin; I12.0 Hypertensive chronic kidney disease with stage 5 chronic kidney disease or end stage renal disease; N17.9 Acute kidney failure, unspecified; E11.22 Type 2 diabetes mellitus with diabetic chronic kidney disease; E83.39 Other disorders of phosphorus metabolism; E83.51 Hypocalcemia
CPT/HCPCS: 36415; 36416; 71045; 76000; 80048; 80069; 81001; 82306; 83520; 83970; 84100; 84165; 84166; 85025; 85610; 85730; 86038; 86225; 86256; 93005; 93970; C1752; C1769; G0365; J0690; J1642; J1644; J1940; J2001; J2250; J2270; J2720; J3010; S0020

== ENCOUNTER 2019-11-17 15:56 | Observation (INO) | payer SELFPAY ==
[~2019-11-17 15:56] MED LIST: Heparin 10,000 UNITS/1 ML VIAL ONE
[2019-11-17 16:26] LABS: #Basophils 0.1 thou/uL (0.0-0.2); #Eosinphils 0.4 thou/uL (0.0-0.7); #Lymphocytes 1.2 thou/uL (1.20-3.40); #Monocytes 0.7 thou/uL (0.11-0.59); #Neutrophils 7.1 thou/uL (1.40-6.50); %Basophils 1.2 % (0.0-1.0); %Eosinophils 4.3 % (0.0-10.0); %Lymphocytes 12.9 % (21.0-51.0); %Monocytes 7.2 % (0.0-10.0); %Neutrophils 74.5 % (42.0-75.0); Hemoglobin 11.2 g/dL (14.0-18.0); Mean Corpuscular HGB CONC 32.9 g/dL (32.0-36.0); Mean Corpuscular Hemoglobin 30.2 pg (27.0-31.0); Mean Corpuscular Volume 91.9 fL (78.0-98.0); Mean Platelet Volume 8.4 fL (7.4-10.4); Platelet Count 390 thou/uL (130-400); RBC Distribution Width 13.1 % (11.5-14.5); Red Blood Cell (RBC) Count 3.69 mill/uL (4.70-6.10); White Blood Cell (WBC) Count 9.6 thou/uL (4.8-10.8)
[2019-11-17 16:51] LABS: ALT (SGPT) 15 U/L (8-55); AST (SGOT) 16 U/L (5-34); Albumin 3.2 g/dL (3.5-5.0); Alkaline Phosphatase 167 U/L (40-110); Anion Gap 19 mmol/L (10-20); BUN (Urea Nitrogen) 109 mg/dL (8.9-20.6); Bilirubin, Total 0.4 mg/dL (0.2-1.2); Calc. Creatinine Clearance 0 mL/min (70-130); Calcium 7.1 mg/dL (7.8-10.44); Carbon Dioxide 18 mmol/L (22-29); Chloride 107 mmol/L (98-107); Estimated GFR-MDRD 6; Globulin 3.9 g/dL (2.4-3.5); Glucose 148 mg/dL (70-105); Potassium 6.5 mmol/L (3.5-5.1); Protein, Total 7.1 g/dL (6.0-8.3); Sodium 137 mmol/L (136-145)
[2019-11-17] MEDS ORDERED: Calcium Gluconate 9.2 MEQ in Sodium Chloride 0.9% 100 ML IVPB SCH (17:00)
[2019-11-17 18:05] LABS: HBSAg Index 0.25 S/CO (0-0.99); Hep B Surf Ag Non-Reactive S/CO (NonReactive)
[2019-11-17] MEDS ORDERED: Guaifenesin DM 100-10/5 ML UDCUP PO PRN (19:06)
[2019-11-17] MEDS ORDERED: Acetaminophen 325 MG TAB PO PRN (19:06)
[2019-11-17] MEDS ORDERED: Ondansetron ODT 4 MG TAB PO PRN (19:06)
[2019-11-17] MEDS ORDERED: Ondansetron PF 4 MG/2 ML Vial IVP PRN (19:06)
[2019-11-17] MEDS ORDERED: Acetaminophen 650 MG Suppository PR PRN (19:06)
[2019-11-17] MEDS ORDERED: Senokot S 8.6-50 MG TAB PO PRN (19:06)
--- NOTE | 2019-11-17 20:07 | HP ---
PRIMARY CARE PHYSICIAN: Teresita Ordaz. PRIMARY BANKING OFFICER: Dr. Farris. CHIEF COMPLAINT: Abnormal lab. HISTORY OF PRESENT ILLNESS: This is a 34-year-old male in here recently for end-stage renal disease, started on intermittent dialysis. He had a cuffed hemodialysis catheter and an AV fistula placed at the end of October. [place] and so he does not have any insurance and so he has been doing intermittent dialysis as needed. Following with Dr. Farris in his clinic, he had lab done by Dr. Farris and was called today because his potassium was elevated. The patient came into the emergency room here. His potassium was 6.5. He had some mild peaking of his T-waves on EKG in the emergency room. He was given insulin and 5% in D50 due to the hyperkalemia. Dr. Farris was consulted. The patient is going back for dialysis right now. The patient denies any symptoms at all. He says he has been he has been sticking with his diet given by Dr. Farris and doing regular exercise. PAST MEDICAL HISTORY: 1. Hypertension. 2. Diabetes mellitus type 2, now just diet-controlled. 3. End-stage renal disease, now on dialysis. PAST SURGICAL HISTORY: 1. Right internal jugular cuffed tunneled hemodialysis catheter placement in October of 2019. 2. Right Nina fistula to the right forearm in October of 2019. SOCIAL HISTORY: The patient denies tobacco, alcohol, or illicit drug use. He is an illegal alien, is , is accompanied by his spouse Debra Buitrago, who also helps to translate for him. ALLERGIES: NO KNOWN DRUG ALLERGIES. HOME MEDICATIONS: 1. Calcium acetate 1334 three times a day with meals. 2. Calcitriol 0.25 mcg daily. 3. Amlodipine 5 mg daily. FAMILY HISTORY: No history of end-stage renal disease. REVIEW OF SYSTEMS: CONSTITUTIONAL: No fevers, no chills. EYES: No double vision or blurred vision. ENT: No congestion, drainage, or sore throat. CARDIOVASCULAR: No chest pain. No palpitations or racing heart. PULMONARY: No coughing, wheezing or shortness of breath. GASTROINTESTINAL: No abdominal pain. No nausea or vomiting. No diarrhea or constipation. GENITOURINARY: No dysuria or hematuria. MUSCULOSKELETAL: No muscle aches or joint pain. SKIN: No rashes or other lesions noted. NEUROLOGIC: No numbness, tingling, or focal weakness. PHYSICAL EXAMINATION: VITAL SIGNS: Blood pressure 136/87, pulse 91, respirations 18, temperature 98.7, O2 saturation 98% on room air. GENERAL: This is a well-developed, well-nourished male, in no acute distress HEENT: Pupils equal, round, and reactive to light. Oropharynx clear without lesions, erythema, or exudate. NECK: Supple. No lymphadenopathy. No thyroid nodules or enlargement. No JVD. HEART: Regular rate and rhythm. No murmurs, rubs, or gallops. LUNGS: Clear to auscultation bilaterally. No wheezes, crackles, or rhonchi. ABDOMEN: Soft, nontender to palpation. Normoactive bowel sounds. No hepatosplenomegaly or other masses. EXTREMITIES: No clubbing, cyanosis, or edema. SKIN: No rashes or other lesions noted. NEUROLOGIC: The patient is moving all extremities equally. No facial droop. PSYCHIATRIC: Alert and oriented x3. Normal mood and affect. LABORATORY DATA: CBC grossly within normal limits. Complete metabolic panel notable for potassium of 6.5, carbon dioxide of 18, BUN of 109, creatinine of 10.5, glucose of 148, calcium of 7.1, alkaline phosphatase of 167, albumin of 3.2. The rest was normal. Hepatitis B surface antigen was also checked and it was nonreactive. EKG in the emergency room shows normal sinus rhythm at 89 beats per minute, some minimal enlargement of the T-waves, but no significant abnormalities. ASSESSMENT: 1. Hyperkalemia, requiring urgent dialysis. The patient is going to dialysis right now. 2. End-stage renal disease requiring dialysis. The patient is getting dialysis as he is able. 3. History of hypertension. Resume home amlodipine. 4. History of diabetes mellitus type 2, now just diet controlled. We will give appropriate diet. 5. Gastrointestinal prophylaxis, the patient is on Pepcid while in the hospital. 6. Deep venous thrombosis prophylaxis. We will have the patient ambulate frequently. CODE STATUS: Patient is a full code. Should he be incapacitated, his spouse would be his medical decision maker, her name is Debra Buitrago. Job ID: [id number]
[2019-11-18 05:24] LABS: Anion Gap 14 mmol/L (10-20); BUN (Urea Nitrogen) 57 mg/dL (8.9-20.6); Calc. Creatinine Clearance 0 mL/min (70-130); Calcium 7.3 mg/dL (7.8-10.44); Carbon Dioxide 25 mmol/L (22-29); Chloride 106 mmol/L (98-107); Estimated GFR-MDRD 10; Glucose 89 mg/dL (70-105); Potassium 4.9 mmol/L (3.5-5.1); Sodium 140 mmol/L (136-145)
[2019-11-18 08:20] VITALS: TEMP 98.7
[2019-11-18] MEDS: Calcium Acetate 667 MG CAP PO SCH ×2 (08:45→12:00)
[2019-11-18] MEDS ORDERED: Amlodipine 5 MG TAB PO SCH (09:00)
[2019-11-18] MEDS ORDERED: Calcitriol 0.25 MCG CAP PO SCH (09:00)
--- NOTE | 2019-11-18 09:13 | PRG ---
DATE OF SERVICE: 11/18/2019 SERVICE: Renal Medicine. SUBJECTIVE: Mr. Barnett is a 34-year-old male, who was initially admitted due to hyperkalemia. He has ESRD, but due to financial reasons, he is unable to obtain outpatient dialysis treatment. He underwent emergent hemodialysis due to the elevated potassium of 6.5. He is feeling better this morning. He did receive a 2-hour hemodialysis yesterday. My plan is to do a 4-hour hemodialysis with him. No complaints of chest pain or shortness of breath. OBJECTIVE: VITAL SIGNS: Blood pressure 134/75, heart rate 84, respiratory rate 17, temperature 98.7, pulse ox 94%. GENERAL: Noted to be awake, alert, supine, comfortable, not in distress. SKIN: Adequate turgor. HEENT: He has pinkish conjunctivae. Anicteric sclerae. NECK: No neck mass. No carotid bruits. No JVD. CHEST: No deformities. LUNGS: Clear breath sounds. No wheezing. No crackles. HEART: Normal sinus rhythm. No murmur. No gallops. No rubs. ABDOMEN: Globular, soft, and nontender. No masses. EXTREMITIES: No edema. No deformities. He has a right AV fistula with positive bruit. MEDICATIONS: Medications of November 18, 2019, were reviewed. LABORATORY DATA: Laboratories of November 17, 2019: White count 9.6, hemoglobin 11.2. Sodium 140, potassium 4.9, chloride 106, carbon dioxide 25, BUN 57, creatinine 6.69, calcium 7.3. ASSESSMENT AND PLAN: 1. End-stage renal disease - continue current hemodialysis regimen. He will do a 4-hour hemodialysis. Due to financial reasons, the patient is unable to avail of any outpatient dialysis treatment. He will come back on a p.r.n. basis to hospital. 2. Hyperphosphatemia. Continue calcium acetate 2 tablets t.i.d. with meals. 3. Secondary hyperparathyroidism, on calcitriol. From a renal point of view, the patient can be discharged after dialysis today. Job ID: [id number]
[2019-11-18] MEDS ORDERED: Heparin 10,000 UNITS/ 10 ML VIAL ONE (11:18)
[2019-11-18 15:04] VITALS: BP 151/78
[2019-11-18] MEDS ORDERED: Famotidine 20 MG TAB PO SCH (21:00)
--- NOTE | 2019-11-19 04:26 | DIS ---
DATE OF ADMISSION: 11/17/2019 DATE OF DISCHARGE: 11/18/2019 DISCHARGE DIAGNOSES: 1. Hyperkalemia secondary to end-stage renal disease. 2. End-stage renal disease requiring hemodialysis. 3. Hypertension, stable. 4. Diabetes mellitus type 2, diet controlled. 5. Anemia of chronic kidney disease. CONSULTATIONS: Dr. Farris with Nephrology Service. PERTINENT LABORATORY AND X-RAY FINDINGS: Potassium ranged between 4.9 to 6.5. Creatinine ranged between 6.69 to 10.55. BUN ranged between 57 to 109. Hemoglobin 11, hematocrit 34, MCV 92, platelet count 390. Hepatitis B surface antigen nonreactive, 11/17/2019. HOSPITAL COURSE: The patient was observed after initially presenting with hyperkalemia in the context of end-stage renal disease, on current intermittent hemodialysis. The patient was evaluated by the Nephrology Service, undergoing hemodialysis during the hospital course with overall resolution of hyperkalemia. The patient also received initially insulin and D50 in the emergency room prior to initiation of hemodialysis. The patient overall remained clinically stable with stable vital signs throughout the hospital course. The patient tolerated hemodialysis sessions and overall ready for discharge, 11/18/2019. I have examined the patient at the time of discharge and discussed followup instructions. The patient verbalized understanding and agreement ready for discharge, 11/18/2019. DISCHARGE MEDICATIONS: 1. Amlodipine 5 mg p.o. daily. 2. Calcitriol 0.25 mcg p.o. daily. 3. Calcium acetate 1334 mg p.o. t.i.d. with meals. FOLLOWUP: The patient may follow up with his primary care provider, Dr. Selma Munoz. The patient may follow up with Dr. Farris with Nephrology Service. CONDITION ON DISCHARGE: Stable. ACTIVITY: Ad-michael. DIET: Renal diet. CODE STATUS: Full. DISPOSITION: To home, 11/18/2019. Job ID: [id number]
== END 2019-11-18 15:04 | disposition home or self-care (01) ==
LOC: ERS 15:56 → ERHOLD 17:49 → 2SW 22:27
PROVIDERS: ADMIT Emergency Medicine; ATTEND Emergency Medicine
DX: I12.0 Hypertensive chronic kidney disease with stage 5 chronic kidney disease or end stage renal disease (principal); E11.22 Type 2 diabetes mellitus with diabetic chronic kidney disease; N18.6 End stage renal disease; D63.1 Anemia in chronic kidney disease; E87.5 Hyperkalemia; E83.39 Other disorders of phosphorus metabolism; N25.81 Secondary hyperparathyroidism of renal origin; Z79.899 Other long term (current) drug therapy; Z99.2 Dependence on renal dialysis
CPT/HCPCS: 36415; 36416; 80048; 80053; 85025; 87340; 90935; 93005; 96365; G0257; G0378; J1644; J3490

== ENCOUNTER 2019-12-06 01:45 | Inpatient (IN) | payer MEDICAID, SELFPAY ==
[2019-12-06 02:12] LABS: #Basophils 0.1 thou/uL (0.0-0.2); #Eosinphils 0.2 thou/uL (0.0-0.7); #Lymphocytes 1.5 thou/uL (1.20-3.40); #Monocytes 0.9 thou/uL (0.11-0.59); #Neutrophils 10.2 thou/uL (1.40-6.50); %Basophils 1.1 % (0.0-1.0); %Eosinophils 1.7 % (0.0-10.0); %Lymphocytes 11.4 % (21.0-51.0); %Neutrophils 78.8 % (42.0-75.0); Hemoglobin 11.2 g/dL (14.0-18.0); Mean Corpuscular HGB CONC 31.1 g/dL (32.0-36.0); Mean Corpuscular Hemoglobin 28.3 pg (27.0-31.0); Mean Corpuscular Volume 90.8 fL (78.0-98.0); Mean Platelet Volume 9.9 fL (7.4-10.4); Platelet Count 301 thou/uL (130-400); RBC Distribution Width 12.9 % (11.5-14.5); Red Blood Cell (RBC) Count 3.97 mill/uL (4.70-6.10); White Blood Cell (WBC) Count 12.9 thou/uL (4.8-10.8)
[2019-12-06 02:38] LABS: ALT (SGPT) 18 U/L (8-55); AST (SGOT) 16 U/L (5-34); Albumin 3.7 g/dL (3.5-5.0); Alkaline Phosphatase 178 U/L (40-110); Anion Gap 21 mmol/L (10-20); Bilirubin, Total 0.5 mg/dL (0.2-1.2); Calc. Creatinine Clearance 0 mL/min (70-130); Calcium 7.8 mg/dL (7.8-10.44); Carbon Dioxide 16 mmol/L (22-29); Chloride 107 mmol/L (98-107); Estimated GFR-MDRD 5; Globulin 4.6 g/dL (2.4-3.5); Glucose 121 mg/dL (70-105); Lipase 126 U/L (8-78); Potassium 5.8 mmol/L (3.5-5.1); Protein, Total 8.3 g/dL (6.0-8.3); Sodium 138 mmol/L (136-145)
[2019-12-06 02:49] LABS: BUN (Urea Nitrogen) 146 mg/dL (8.9-20.6)
[2019-12-06 03:12] LABS: CKMB 11.7 ng/mL (0-6.6)
[2019-12-06 05:20] VITALS: BMI 28.5
[2019-12-06] MEDS ORDERED: Calcium Carbonate 500 MG ChewTAB PO PRN (07:31)
[2019-12-06] MEDS ORDERED: Acetaminophen 325 MG TAB PO PRN (07:31)
[2019-12-06] MEDS ORDERED: Bisacodyl 10 MG SUPP PR PRN (07:31)
[2019-12-06] MEDS ORDERED: Loperamide HCl 2 MG CAP PO PRN (07:31)
[2019-12-06] MEDS ORDERED: Ondansetron PF 4 MG/2 ML Vial IVP PRN (07:31)
[2019-12-06] MEDS ORDERED: Ondansetron ODT 4 MG TAB PO PRN (07:31)
[2019-12-06] MEDS ORDERED: HYDROcodone/Acetaminophen 7.5/325 mg Tablet PO PRN (07:31)
[2019-12-06] MEDS ORDERED: HYDROcodone/Acetaminophen 5/325 mg Tablet PO PRN (07:31)
[2019-12-06] MEDS ORDERED: Labetalol HCl 100 MG/20 ML VIAL SLOW IVP PRN (07:33)
[2019-12-06] MEDS ORDERED: Melatonin 3 MG TAB PO PRN (07:33)
[2019-12-06] MEDS ORDERED: diphenhydrAMINE 25 MG CAP PO PRN (07:33)
[2019-12-06] MEDS ORDERED: Benzonatate 100 MG CAP PO PRN (07:33)
[2019-12-06] MEDS ORDERED: Docusate 100 MG CAP PO PRN (07:33)
[2019-12-06] MEDS ORDERED: Dextrose 50% Abboject 50 ML SYRINGE SLOW IVP PRN (07:35)
[2019-12-06] MEDS ORDERED: HumaLOG 300 UNITS/3 ML VIAL SC PRN ×2 (07:35)
[2019-12-06] MEDS ORDERED: Dextrose 5% in Water 1,000 ML IV PRN (07:35)
[2019-12-06] MEDS ORDERED: Calcium Acetate 667 MG CAP PO SCH (08:00)
--- NOTE | 2019-12-06 08:03 | RAD ---
EXAM: Chest 2 views: HISTORY: Shortness of breath COMPARISON: None. FINDINGS: There is a normal-sized cardiomediastinal silhouette. A right IJ dialysis catheter seen with its tip in the superior vena cava. Atelectasis seen in the lung bases. There may be trace bilateral pleural effusions. There is wedging of some lower thoracic vertebral bodies which appear chronic. IMPRESSION: Possible small bilateral pleural effusions with adjacent atelectasis.
[2019-12-06] MEDS ORDERED: Famotidine 20 MG TAB PO SCH (09:00)
--- NOTE | 2019-12-06 09:09 | PRG ---
DATE OF SERVICE: 12/06/2019 SUBJECTIVE: Mr. Barnett is a 34-year-old male with ESRD. He came in for congestive heart failure and hypoxemia. He is currently undergoing hemodialysis. Please note that this patient due to insurance issues is not able to follow up with an outpatient dialysis unit. He was also advised to follow up with his PCP, which he has not done. He has a mild shortness of breath today. OBJECTIVE: VITAL SIGNS: Blood pressure 158/93, heart rate 100, respiratory rate 18, temperature 97.6, and pulse ox 92%. GENERAL: Noted to be awake, alert, comfortable, not in overt distress. SKIN: Adequate turgor. HEENT: He has a pinkish conjunctivae. Anicteric sclerae. NECK: No neck mass. No carotid bruits. No JVD. CHEST: No deformities. LUNGS: Clear breath sounds. HEART: Normal sinus rhythm. No murmurs. No gallops. No rubs. ABDOMEN: Globular, soft, and nontender. No masses. EXTREMITIES: No edema. No deformities. IMAGING: Chest x-ray of December 06, 2019, small bilateral effusions with atelectasis. LABORATORY DATA: Laboratories of December 06, 2019; sodium 138, potassium 5.8, chloride 107, carbon dioxide 16, BUN 146, creatinine 11.91, AST 16, and ALT 18. BNP 2694. Albumin 3.7 and lipase 126. Hemoglobin 11.2. ASSESSMENT AND PLAN: 1. Congestive heart failure - hemodialysis today. We will max out fluid removal as tolerated by the patient. 2. End-stage renal disease, continuing dialysis regimen. He comes to the hospital on a p.r.n. basis. We are unable to place outpatient dialysis placement with him due to insurance issues. Our plan is again to repeat another dialysis tomorrow. 3. Mild hyperkalemia, hemodialysis today. Overall, agree with current management. Job ID: [id number]
[2019-12-06] MEDS: Calcium Acetate 667 MG CAP PO SCH ×3 (11:57→16:43)
[2019-12-06] MEDS: Heparin 5,000 UNITS/ML VIAL SC SCH ×3 (11:57→20:43)
[2019-12-06] MEDS: Calcitriol 0.25 MCG CAP PO SCH (12:12)
[2019-12-06] MEDS: Amlodipine 5 MG TAB PO SCH (12:12)
--- NOTE | 2019-12-06 16:06 | PDOC.HHP ---
Hospitalist HPI - History of Present Illness Shortness of breath History of Present Illness: Very pleasant 34-year-old gentleman with past medical history of end-stage renal disease on hemodialysis, hypertension, impaired glucose tolerance, and anemia of chronic disease presents with worsening shortness of breath. Patient has been diagnosed with recent end-stage renal disease and last hemodialysis session was in the acute care hospital here at [facility] a few weeks ago. Since then the patient has not been able to have outpatient hemodialysis. Patient presents with worsening shortness of breath, inability to lay flat, and found have pulmonary edema and congestive heart failure. Nephrology has been consulted and the patient received hemodialysis appropriately. My find the patient on the medical unit he is breathing much more comfortably. He is saturating adequately on low-flow nasal cannula. Shortness of breath is improve. Denies pain. No other acute complaints. Family at bedside, times given for questions, all answered in detail. Hospitalist ROS - Review of Systems All other systems reviewed; all pertinent +/- noted in HPI/Subj - Medication Medications: Active Medications Generic Name Dose Route Start Last Admin Trade Name Ronniq PRN Reason Stop Dose Admin Amlodipine Besylate 5 mg 12/06/19 09:00 12/06/19 12:12 Norvasc PO 5 mg DAILY LIZZ Administration Calcitriol 0.25 mcg 12/06/19 09:00 12/06/19 12:12 Rocaltrol PO 0.25 mcg DAILY LIZZ Administration Calcium Acetate 1,334 mg 12/06/19 08:00 12/06/19 12:13 Phoslo PO 1,334 mg TID- LIZZ Administration Heparin Sodium (Porcine) 5,000 units 12/06/19 09:00 12/06/19 14:20 Heparin SC 5,000 units TID LIZZ Administration Sodium Chloride 10 ml 12/06/19 09:00 12/06/19 12:13 Flush - Normal Saline IVF 10 ml Q12HR LIZZ Administration Hospitalist History - Past Medical History Source: patient, family, old records Cardiac: reports: HTN Renal/: reports: Chronic renal failure - Past Surgical History Past Surgical History: reports: Other - Family History Family History: reports: hypertension - Social History Smoking Status: Never smoker Drugs: reports: none Living Situation: With Family Domestic Violence: Negative Activity level: independent ambulation - Exam General Appearance: NAD, awake alert Eye: anicteric sclera ENT: normocephalic atraumatic, moist mucosa Neck: supple, symmetric, no lymphadenopathy Heart: no murmur, no gallops, no rubs Respiratory: CTAB, no wheezes, no ronchi, normal chest expansion, rales Gastrointestinal: soft, non-tender, non-distended, no guarding, no rigidity Extremities: 1+ LE edema Skin: no lesions, no rashes Neurological: cranial nerve grossly intact, no focal deficits Musculoskeletal: normal tone, normal strength Psychiatric: normal affect, normal behavior, A&O x 3 Hospitalist Results - Labs Result Diagrams: 12/06/19 01:58 12/06/19 01:58 Lab results: WBC 12.9 thou/uL (4.8-10.8) H 12/06/19 01:58 Hgb 11.2 g/dL (14.0-18.0) L 12/06/19 01:58 Hct 36.1 % (42.0-52.0) L 12/06/19 01:58 MCV 90.8 fL (78.0-98.0) 12/06/19 01:58 Plt Count 301 thou/uL (130-400) 12/06/19 01:58 Neutrophils % 78.8 % (42.0-75.0) H 12/06/19 01:58 Sodium 138 mmol/L (136-145) 12/06/19 01:58 Potassium 5.8 mmol/L (3.5-5.1) H 12/06/19 01:58 Chloride 107 mmol/L (98-107) 12/06/19 01:58 Carbon Dioxide 16 mmol/L (22-29) L 12/06/19 01:58 BUN 146 mg/dL (8.9-20.6) H 12/06/19 01:58 Creatinine 11.91 mg/dL (0.7-1.3) H 12/06/19 01:58 Glucose 121 mg/dL (70-105) H 12/06/19 01:58 Calcium 7.8 mg/dL (7.8-10.44) 12/06/19 01:58 Total Bilirubin 0.5 mg/dL (0.2-1.2) 12/06/19 01:58 AST 16 U/L (5-34) 12/06/19 01:58 ALT 18 U/L (8-55) 12/06/19 01:58 Alkaline Phosphatase 178 U/L (40-110) H 12/06/19 01:58 CK-MB (CK-2) 11.7 ng/mL (0-6.6) H* 12/06/19 01:58 Troponin I 0.039 ng/mL (< 0.028) H 12/06/19 01:58 B-Natriuretic Peptide 2694.5 pg/mL (0-100) H 12/06/19 02:01 Serum Total Protein 8.3 g/dL (6.0-8.3) 12/06/19 01:58 Albumin 3.7 g/dL (3.5-5.0) 12/06/19 01:58 Lipase 126 U/L (8-78) H 12/06/19 01:58 - Radiology Interpretation Chest x-ray Status: image reviewed by ks Hospitalist H&P A/P - Problem (1) Pulmonary edema Code(s): J81.1 - CHRONIC PULMONARY EDEMA Status: Acute (2) Diastolic CHF Code(s): I50.30 - UNSPECIFIED DIASTOLIC (CONGESTIVE) HEART FAILURE Status: Acute (3) Acute renal failure (ARF) Status: Acute (4) Chronic renal failure, stage 5 Code(s): N18.5 - CHRONIC KIDNEY DISEASE, STAGE 5 Status: Acute (5) Hypocalcemia Code(s): E83.51 - HYPOCALCEMIA Status: Acute (6) HTN (hypertension) Code(s): I10 - ESSENTIAL (PRIMARY) HYPERTENSION Status: Chronic Qualifiers: Hypertension type: essential hypertension Qualified Code(s): I10 - Essential (primary) hypertension (7) Volume overload Code(s): E87.70 - FLUID OVERLOAD, UNSPECIFIED Status: Resolved - Plan Plan: Plan: medical/surgical unit nephrology consultation, recommendations appreciated supplemental oxygen to maintain O2 saturation's echocardiogram hemodialysis as appropriate by nephrology replace electrolytes as needed caution for volume overload blood pressure control continual medications is able blood sugar control G.I. prophylaxis DVT prophylaxis
[2019-12-07 05:42] LABS: #Basophils 0.1 thou/uL (0.0-0.2); #Eosinphils 0.4 thou/uL (0.0-0.7); #Lymphocytes 2.1 thou/uL (1.20-3.40); #Neutrophils 4.9 thou/uL (1.40-6.50); %Basophils 1.7 % (0.0-1.0); %Eosinophils 4.6 % (0.0-10.0); %Lymphocytes 24.7 % (21.0-51.0); %Monocytes 11.7 % (0.0-10.0); %Neutrophils 57.3 % (42.0-75.0); Hemoglobin 10.7 g/dL (14.0-18.0); Mean Corpuscular HGB CONC 32.5 g/dL (32.0-36.0); Mean Corpuscular Hemoglobin 29.3 pg (27.0-31.0); Mean Corpuscular Volume 90.2 fL (78.0-98.0); Mean Platelet Volume 10.1 fL (7.4-10.4); Platelet Count 268 thou/uL (130-400); RBC Distribution Width 12.8 % (11.5-14.5); Red Blood Cell (RBC) Count 3.66 mill/uL (4.70-6.10); White Blood Cell (WBC) Count 8.5 thou/uL (4.8-10.8)
[2019-12-07 06:00] LABS: Anion Gap 16 mmol/L (10-20); BUN (Urea Nitrogen) 89 mg/dL (8.9-20.6); Calc. Creatinine Clearance 12 mL/min (70-130); Calcium 7.7 mg/dL (7.8-10.44); Carbon Dioxide 23 mmol/L (22-29); Chloride 103 mmol/L (98-107); Estimated GFR-MDRD 7; Glucose 83 mg/dL (70-105); Potassium 4.8 mmol/L (3.5-5.1); Sodium 137 mmol/L (136-145)
[2019-12-07] MEDS ORDERED: EPOETIN ALFA-EPBX (ESRD) 4,000 UNIT/ML VIAL SC SCH (08:30)
--- NOTE | 2019-12-07 08:52 | PRG ---
DATE OF SERVICE: 12/07/2019 SUBJECTIVE: Mr. Barnett is a 34-year-old male, who was admitted due to volume overload. He is currently undergoing hemodialysis today. We will max out fluid removal. He is feeling better. He did receive dialysis yesterday. Due to unfortunate circumstances/insurance issue, he is unable to proceed with outpatient hemodialysis. He is coming back on a p.r.n. basis at the hospital. OBJECTIVE: VITAL SIGNS: Blood pressure 136/90, heart rate 93, respiratory rate 16, temperature 97.9, pulse ox 96%. GENERAL: Noted to be awake, alert, comfortable, not in distress. SKIN: Adequate turgor. HEENT: He has a slightly pale conjunctivae. Anicteric sclerae. NECK: No neck mass. No carotid bruits. No JVD. CHEST: No deformities. LUNGS: Clear breath sounds. HEART: Normal sinus rhythm. No murmurs, gallops, or rubs. ABDOMEN: Globular, soft, nontender, no masses. EXTREMITIES: No edema, no deformities. MEDICATIONS: Medications of December 07, 2019, were reviewed. LABORATORY DATA: Laboratories of December 07, 2019, white count 8.5, hemoglobin 10.7. Sodium 137, potassium 4.8, chloride 103, carbon dioxide 23, BUN 89, creatinine 8.41, glucose 83, and calcium 7.7. ASSESSMENT AND PLAN: 1. Congestive heart failure, shortness of breath, much improved. We will max out fluid removal with dialysis today. 2. Endstage renal disease-hemodialysis today for 3-1/2 hours. 3. Anemia. Resume Epogen plus iron supplementation. 4. Hypertension, continue BP medications. The patient is okay for discharge any time after dialysis. Job ID: [id number]
[2019-12-07] MEDS ORDERED: Famotidine 20 MG TAB PO SCH (09:00)
[2019-12-07] MEDS ORDERED: Heparin 10,000 UNITS/ 10 ML VIAL ONE (09:30)
[2019-12-07] MEDS: Calcitriol 0.25 MCG CAP PO SCH (13:23)
[2019-12-07] MEDS: Calcium Acetate 667 MG CAP PO SCH ×2 (13:23)
[2019-12-07] MEDS: Amlodipine 5 MG TAB PO SCH (13:23)
[2019-12-07] MEDS: Heparin 5,000 UNITS/ML VIAL SC SCH ×2 (13:24→15:24)
[2019-12-07 15:18] VITALS: BP 145/91; TEMP 98.5
[2019-12-07] MEDS ORDERED: Ferrous Sulfate 325 MG TAB PO SCH (17:00)
--- NOTE | 2019-12-08 03:11 | DIS ---
DATE OF ADMISSION: 12/06/2019 DATE OF DISCHARGE: 12/07/2019 REASON FOR HOSPITALIZATION: Volume overload, needing dialysis. SIGNIFICANT FINDINGS: The patient was found to be volume overloaded from missing hemodialysis. PROCEDURES PERFORMED AND TREATMENTS RENDERED: Mr. Barnett is a pleasant 34-year-old gentleman, who presented to [facility] on 12/06/2019, needing hemodialysis. The patient has diagnosis of end-stage renal disease, who follows up with Dr. Farris in the clinic regularly. Unfortunately due to insurance issues, the patient receives his dialysis in the [facility] chronically. The patient was admitted to the medical unit for close management. The patient had hemodialysis coordinated appropriately by Nephrology. After two days of serial hemodialysis sessions, the patient is breathing comfortably on room air. The patient recommended safe for discharge by Nephrology with close followup in the outpatient setting. Unfortunately, again secondary to insurance issues, this patient will have to return in the near future for his next hemodialysis session. He states that he does follow up with laboratory data in the Nephrology Clinic. The patient does not have congestive heart failure and was simply volume overloaded from end-stage renal disease and not having dialysis scheduled regularly. The patient may follow up with primary care physician for outpatient echocardiogram if he so chooses or he may follow up with Nephrology for this. The patient recommended safe for discharge by Nephrology with close followup in the outpatient setting. CONDITION ON DISCHARGE: Stable. SPECIFIC INSTRUCTIONS FOR THE PATIENT/FAMILY: 1. The patient recommended to follow up with Nephrology in the next 2 to 3 days. 2. The patient recommended to follow up with primary care physician in the next 5 to 7 days. 3. The patient recommended to take all medications as directed. 4. The patient recommended to follow up for hemodialysis in the [facility] in the upcoming days. DISCHARGE MEDICATIONS: 1. Amlodipine 5 mg one tablet p.o. daily. 2. Calcitriol 0.25 mcg p.o. daily. 3. Calcium acetate two caps p.o. t.i.d. Greater than 36 minutes spent coordinating care and discharge process for this patient. Job ID: [id number]
== END 2019-12-07 15:55 | disposition home or self-care (01) | DRG 291 ==
LOC: ERS 01:45 → SURG B 05:00
PROVIDERS: ADMIT Family Medicine; ATTEND Family Medicine
PROC: 5A1D70Z Performance of Urinary Filtration, Intermittent, Less than 6 Hours Per Day (ICD-10-PCS; principal; 2019-12-06)
DX: I13.2 Hypertensive heart and chronic kidney disease with heart failure and with stage 5 chronic kidney disease, or end stage renal disease (principal); N18.6 End stage renal disease; I50.31 Acute diastolic (congestive) heart failure; N17.9 Acute kidney failure, unspecified; D63.1 Anemia in chronic kidney disease; R09.02 Hypoxemia; E87.5 Hyperkalemia; R73.02 Impaired glucose tolerance (oral); E83.51 Hypocalcemia; Z99.2 Dependence on renal dialysis; Z79.899 Other long term (current) drug therapy
CPT/HCPCS: 36415; 36416; 71046; 80048; 80053; 82553; 83690; 83880; 84484; 85025; 93005; 94760; J1644; Q5105

== ENCOUNTER 2019-12-21 10:50 | Emergency (ER) | payer MEDICAID, SELFPAY ==
[~2019-12-21 10:50] MED LIST changes: +Heparin 10,000 UNITS/ 10 ML VIAL ONE; -Heparin 10,000 UNITS/1 ML VIAL ONE
[2019-12-21 11:24] LABS: #Basophils 0.1 thou/uL (0.0-0.2); #Eosinphils 0.3 thou/uL (0.0-0.7); #Lymphocytes 1.5 thou/uL (1.20-3.40); #Monocytes 0.7 thou/uL (0.11-0.59); #Neutrophils 6.3 thou/uL (1.40-6.50); %Basophils 1.3 % (0.0-1.0); %Eosinophils 3.3 % (0.0-10.0); %Lymphocytes 16.7 % (21.0-51.0); %Monocytes 8.1 % (0.0-10.0); %Neutrophils 70.5 % (42.0-75.0); Hemoglobin 12.5 g/dL (14.0-18.0); Mean Corpuscular Hemoglobin 29.8 pg (27.0-31.0); Mean Corpuscular Volume 93.1 fL (78.0-98.0); Mean Platelet Volume 9.6 fL (7.4-10.4); Platelet Count 382 thou/uL (130-400); RBC Distribution Width 13.1 % (11.5-14.5); Red Blood Cell (RBC) Count 4.19 mill/uL (4.70-6.10)
[2019-12-21 11:47] LABS: ALT (SGPT) 30 U/L (8-55); AST (SGOT) 24 U/L (5-34); Albumin 3.6 g/dL (3.5-5.0); Alkaline Phosphatase 155 U/L (40-110); Anion Gap 20 mmol/L (10-20); Bilirubin, Total 0.4 mg/dL (0.2-1.2); Calc. Creatinine Clearance 0 mL/min (70-130); Calcium 8.3 mg/dL (7.8-10.44); Carbon Dioxide 20 mmol/L (22-29); Chloride 106 mmol/L (98-107); Estimated GFR-MDRD 5; Glucose 119 mg/dL (70-105); Potassium 5.9 mmol/L (3.5-5.1); Protein, Total 7.6 g/dL (6.0-8.3); Sodium 140 mmol/L (136-145)
[2019-12-21 11:48] LABS: Magnesium 2.7 mg/dL (1.6-2.6); Phosphorus 5.9 mg/dL (2.3-4.7)
[2019-12-21 12:00] LABS: BUN (Urea Nitrogen) 117 mg/dL (8.9-20.6)
[2019-12-21 14:27] LABS: HBSAg Index 0.25 S/CO (0-0.99); Hep B Surf Ag Non-Reactive S/CO (NonReactive)
== END 2019-12-21 19:46 | disposition home or self-care (01) ==
LOC: ERS 10:50
DX: N18.6 End stage renal disease (principal); E87.5 Hyperkalemia; Z79.899 Other long term (current) drug therapy; Z99.2 Dependence on renal dialysis
CPT/HCPCS: 80053; 83735; 84100; 85025; 87340; 93005; A4353; J1644

== ENCOUNTER 2020-01-05 23:25 | Observation (INO) | payer MEDICAID, SELFPAY ==
[2020-01-05 23:50] LABS: #Basophils 0.2 thou/uL (0.0-0.2); #Eosinphils 0.4 thou/uL (0.0-0.7); #Lymphocytes 2.1 thou/uL (1.20-3.40); #Neutrophils 6.2 thou/uL (1.40-6.50); %Basophils 2.2 % (0.0-1.0); %Eosinophils 3.8 % (0.0-10.0); %Monocytes 10.2 % (0.0-10.0); %Neutrophils 62.8 % (42.0-75.0); Hemoglobin 11.1 g/dL (14.0-18.0); Mean Corpuscular HGB CONC 32.7 g/dL (32.0-36.0); Mean Corpuscular Hemoglobin 29.9 pg (27.0-31.0); Mean Corpuscular Volume 91.6 fL (78.0-98.0); Mean Platelet Volume 9.9 fL (7.4-10.4); Platelet Count 280 thou/uL (130-400); RBC Distribution Width 12.9 % (11.5-14.5); Red Blood Cell (RBC) Count 3.72 mill/uL (4.70-6.10); White Blood Cell (WBC) Count 9.9 thou/uL (4.8-10.8)
[2020-01-06 00:32] LABS: ALT (SGPT) 25 U/L (8-55); AST (SGOT) 24 U/L (5-34); Albumin 3.8 g/dL (3.5-5.0); Alkaline Phosphatase 176 U/L (40-110); Anion Gap 21 mmol/L (10-20); BUN (Urea Nitrogen) 120 mg/dL (8.9-20.6); Bilirubin, Total 0.3 mg/dL (0.2-1.2); Calc. Creatinine Clearance 0 mL/min (70-130); Calcium 7.9 mg/dL (7.8-10.44); Carbon Dioxide 18 mmol/L (22-29); Chloride 107 mmol/L (98-107); Estimated GFR-MDRD 5; Globulin 4.1 g/dL (2.4-3.5); Glucose 109 mg/dL (70-105); Potassium 6.1 mmol/L (3.5-5.1); Protein, Total 7.9 g/dL (6.0-8.3); Sodium 140 mmol/L (136-145)
[2020-01-06] MEDS ORDERED: HumaLOG 300 UNITS/3 ML VIAL SC PRN ×2 (02:21)
[2020-01-06] MEDS ORDERED: Dextrose 5% in Water 1,000 ML IV PRN (02:21)
[2020-01-06] MEDS ORDERED: Dextrose 50% Abboject 50 ML SYRINGE SLOW IVP PRN (02:21)
[2020-01-06] MEDS ORDERED: Acetaminophen 325 MG TAB PO PRN (02:21)
--- NOTE | 2020-01-06 03:28 | HP ---
PRIMARY CARE: Through the [facility]. CHIEF COMPLAINT: "I was called and told my potassium was high." HISTORY OF PRESENT ILLNESS: Mr. Barahona is a very pleasant 34-year-old gentleman who has a history of end-stage renal disease, on hemodialysis. Unfortunately, due to his residency status, he is unable to apply for Medicare to receive maintenance hemodialysis. He sees Dr. Farris periodically and had lab work done and was told that his potassium was elevated at 7.2. He was told to come to the ER for evaluation. The patient was completely asymptomatic and denied having any symptoms such as nausea, vomiting. No chest pain, shortness of breath etc. When he was seen in the ER, he had a repeat chemistry. This time that the potassium was noted to be 6.1. His living coach was called and he was also administered lactulose as well as Kayexalate and is being placed in observation for further recommendations. REVIEW OF SYSTEMS: All systems were reviewed and are negative except for that mentioned in the history of present illness. PAST MEDICAL HISTORY: Significant for end-stage renal disease, on hemodialysis; diabetes mellitus type 2, and hypertension. PAST SURGICAL HISTORY: He had surgery on his right eye, an AV fistula placed as well as a temporary dialysis catheter. ALLERGIES: NO KNOWN DRUG ALLERGIES. SOCIAL HISTORY: He is . He has no children. He is a nonsmoker and nondrinker. FAMILY HISTORY: Significant for diabetes mellitus. CURRENT MEDICATIONS: Include: 1. Calcitriol. 2. PhosLo 667 mg 2 tablets three times daily. 3. Amlodipine 5 mg p.o. daily. 4. Calcitriol 0.05 mcg daily. PHYSICAL EXAMINATION: GENERAL: He is alert and oriented. He appears to be in no acute distress. He is well developed and well nourished. VITAL SIGNS: His blood pressure was 155/79, heart rate 94, respiratory rate of 18, temperature is 97.6, and O2 saturation is 100% on room air. HEENT: Pupils are equal, round, and reactive. Extraocular muscles are intact. Sclerae anicteric. Throat, no erythema, no exudates. NECK: No adenopathy, no bruits. LUNGS: Clear to auscultation. There is no wheezing, no rales, no rhonchi. CARDIOVASCULAR: He has a normal S1, S2. There is no S3 or S4. No murmurs, clicks, or rubs. ABDOMEN: Soft, nontender, and nondistended. Positive for bowel sounds. No rebound or guarding. No organomegaly. EXTREMITIES: There is no clubbing or cyanosis. No edema. NEUROLOGIC: Grossly nonfocal. SKIN AND INTEGUMENT: No skin changes, no rash. LABORATORY DATA: Sodium 140, potassium 6.1, chloride is 107, CO2 is 18, BUN of 120, creatinine 10.95, glucose is 109. White blood cell count 9.9, hemoglobin 11.1, hematocrit is 34.1, and platelet count is 280. ASSESSMENT: This is a pleasant 34-year-old gentleman who presents with hyperkalemia in the setting of end-stage renal disease. He will be placed in observation. He may require another dose of Kayexalate later on and the plan is for urgent dialysis later. His living coach has already been consulted. For diabetes, he will be placed on a sliding scale insulin. Hypertension. Restart amlodipine as well as p.r.n. medications. Job ID: [id number]
[2020-01-06 05:30] LABS: #Basophils 0.2 thou/uL (0.0-0.2); #Eosinphils 0.3 thou/uL (0.0-0.7); #Lymphocytes 1.7 thou/uL (1.20-3.40); #Neutrophils 5.1 thou/uL (1.40-6.50); %Basophils 1.9 % (0.0-1.0); %Eosinophils 3.9 % (0.0-10.0); %Lymphocytes 20.3 % (21.0-51.0); %Monocytes 12.5 % (0.0-10.0); %Neutrophils 61.5 % (42.0-75.0); Hemoglobin 10.7 g/dL (14.0-18.0); Mean Corpuscular HGB CONC 32.6 g/dL (32.0-36.0); Mean Corpuscular Hemoglobin 29.9 pg (27.0-31.0); Mean Corpuscular Volume 91.8 fL (78.0-98.0); Mean Platelet Volume 9.2 fL (7.4-10.4); Platelet Count 242 thou/uL (130-400); RBC Distribution Width 12.9 % (11.5-14.5); Red Blood Cell (RBC) Count 3.59 mill/uL (4.70-6.10); White Blood Cell (WBC) Count 8.4 thou/uL (4.8-10.8)
[2020-01-06 05:49] LABS: Anion Gap 20 mmol/L (10-20); BUN (Urea Nitrogen) 117 mg/dL (8.9-20.6); Calc. Creatinine Clearance 0 mL/min (70-130); Calcium 7.6 mg/dL (7.8-10.44); Carbon Dioxide 18 mmol/L (22-29); Chloride 110 mmol/L (98-107); Estimated GFR-MDRD 5; Glucose 90 mg/dL (70-105); Potassium 5.6 mmol/L (3.5-5.1); Sodium 142 mmol/L (136-145)
[2020-01-06] MEDS ORDERED: Heparin 10,000 UNITS/ 10 ML VIAL ONE (09:37)
--- NOTE | 2020-01-06 10:02 | PRG ---
DATE OF SERVICE: 01/06/2020 SUBJECTIVE: Mr. Mauro Barnett is a 34-year-old male with ESRD. He is not able to do outpatient hemodialysis due to financial reasons. He was initially found to have a potassium 7.2, but this was repeated was 6.1. However, BUN was noted at 120 with a creatinine 10.9. He was clinically uremic at that time. The repeat potassium 6.1 was addressed and he was given Kayexalate. Repeat potassium is now 5.6. He is currently undergoing hemodialysis. We will attempt to use the AV fistula. OBJECTIVE: VITAL SIGNS: Blood pressure 162/92. GENERAL: Awake, alert, and comfortable. SKIN: Adequate turgor. HEENT: He has pinkish conjunctivae. Anicteric sclerae. NECK: No neck mass. No carotid bruits. No JVD. CHEST: No deformities. LUNGS: Clear breath sounds. No wheezing. No crackles. HEART: Normal sinus rhythm. No murmur. No gallops. No rubs. ABDOMEN: Globular, soft, and nontender. No masses. EXTREMITIES: No edema. No deformities. MEDICATIONS: 1. Amlodipine 5 mg tablet once a day. 2. Calcitriol 0.25 mcg tablet daily. 3. PhosLo 667 mg two tablets t.i.d. with meals. ASSESSMENT AND PLAN: 1. End-stage renal disease-hemodialysis for 4 hours. Consider discharging after hemodialysis. He will come back on a p.r.n. basis only. 2. Hypertension. Continue current BP medications. I have asked the patient to follow up with his PCP. The patient will come back on a p.r.n. basis. Job ID: [id number]
[2020-01-06] MEDS ORDERED: Amlodipine 5 MG TAB ONE (15:37)
[2020-01-06 16:35] VITALS: BMI 21.6
[2020-01-06] MEDS: Heparin 5,000 UNITS/ML VIAL SC SCH ×3 (17:52→20:18)
[2020-01-06] MEDS ORDERED: Amlodipine 5 MG TAB PO SCH (18:30)
[2020-01-07 05:53] LABS: Anion Gap 15 mmol/L (10-20); BUN (Urea Nitrogen) 44 mg/dL (8.9-20.6); Calc. Creatinine Clearance 14 mL/min (70-130); Calcium 7.7 mg/dL (7.8-10.44); Carbon Dioxide 27 mmol/L (22-29); Chloride 100 mmol/L (98-107); Estimated GFR-MDRD 10; Glucose 81 mg/dL (70-105); Potassium 5.3 mmol/L (3.5-5.1); Sodium 137 mmol/L (136-145)
[2020-01-07] MEDS ORDERED: Amlodipine 10 MG TAB PO SCH (09:00)
[2020-01-07] MEDS ORDERED: Calcitriol 0.25 MCG CAP PO SCH (09:00)
[2020-01-07] MEDS: Heparin 5,000 UNITS/ML VIAL SC SCH ×2 (09:15→15:27)
--- NOTE | 2020-01-07 09:34 | PRG ---
DATE OF SERVICE: 01/07/2020 SUBJECTIVE: Mr. Barnett is a 34-year-old male with ESRD, was admitted for hyperkalemia and uremia. He underwent a 4-hour hemodialysis yesterday and tolerated said treatment. My plan due to the still elevated potassium of 5.3, we will do another dialysis. We will consider discharging him after dialysis today. No other complaints. OBJECTIVE: VITAL SIGNS: Blood pressure 125/71, heart rate 82, respiratory rate 16, temperature 97.6, pulse ox 98%. GENERAL: Awake, alert, comfortable. SKIN: Adequate turgor. HEENT: Pinkish conjunctivae. Anicteric sclerae. NECK: No neck mass. No carotid bruits. No JVD. CHEST: No deformities. LUNGS: Clear breath sounds. HEART: Normal sinus rhythm. No murmurs, gallops, or rubs. ABDOMEN: Globular, soft, nontender. No masses. EXTREMITIES: No edema. No deformities. LABORATORY DATA: Laboratories of January 07, 2020; sodium 137, potassium 5.3, chloride 100, carbon dioxide 27, BUN 44, creatinine 6.25, calcium 7.7. MEDICATIONS: Medications of January 07, 2020, reviewed. ASSESSMENT AND PLAN: 1. End-stage renal disease-hemodialysis for 3 hours today. Fluid removal only as tolerated. 2. Mild hyperkalemia-we will do another dialysis session with this patient. 3. Hypertension, good control. Continue current BP medications. Okay for discharge after dialysis. The patient will come back only on a p.r.n. basis at the hospital. We are unable to provide outpatient services with this patient due to financial reasons. Job ID: [id number]
[2020-01-07] MEDS ORDERED: Heparin 10,000 UNITS/ 10 ML VIAL ONE (09:44)
[2020-01-07] MEDS ORDERED: CALCIUM ACETATE PO SCH (12:00)
[2020-01-07] MEDS: Calcium Acetate 667 MG CAP PO SCH ×2 (13:00→15:27)
[2020-01-07 14:35] VITALS: BP 110/67; TEMP 98.7
--- NOTE | 2020-01-08 00:43 | DIS ---
DATE OF ADMISSION: 01/06/2020 DATE OF DISCHARGE: 01/07/2020 DIAGNOSES AT THE TIME OF DISCHARGE: 1. Hyperkalemia. 2. End-stage renal disease. 3. Diabetes mellitus type 2. HOSPITAL COURSE: The patient is a 34-year-old male with history of end-stage renal disease, on hemodialysis. Unfortunately, according to his residency status, he is unable to apply for Medicare to receive maintenance hemodialysis. He sees Dr. Farris periodically and he had lab work done recently, which showed potassium level elevated at 7.2. He was told to come to the emergency room for evaluation. The patient was completely asymptomatic and denied having any symptoms such as nausea, vomiting, chest pain, or shortness of breath and potassium level in the emergency room was rechecked and it came back at 6.1. The patient was treated with lactulose and Kayexalate and got admitted for hemodialysis. His labs at the time of admission showed creatinine of 10.95, glucose of 109, white count of 9.9, hemoglobin 11.1, hematocrit 34.1, platelet count 280,000. The patient got admitted to the hospital. He had 2 hemodialysis sessions back to back. Dr. Farris, his district or district office director was consulted and he supervised dialysis part. The patient's potassium improved significantly to 5.3 before dialysis today and creatinine was down to 6.25 prior to today's dialysis. We do not have a followup lab work, but extrapolating his potassium was most likely less than 5 and creatinine is less than 4 according to my calculations. The patient is doing well. His vitals are fine, stable. He is seen and examined before his discharge. He is discharged back home with recommendation to stay on amlodipine 10 mg once a day, the dose was increased from 5 to 10, he is going to have prescription for that. Also, calcitriol 0.25 mcg once a day, #30, he is going to have prescription for this and calcium acetate (PhosLo) 2 capsules three times a day with meals. He is going to follow up with Dr. Farris and he will continue his hemodialysis per Dr. Farris's recommendation. He is seen and examined before his discharge and discharge time is less than 30 minutes. Job ID: [id number]
--- NOTE | 2020-01-09 00:53 | EKG ---
Test Reason : Blood Pressure : / mmHG Vent. Rate : 093 BPM Atrial Rate : 093 BPM P-R Int : 162 ms QRS Dur : 086 ms QT Int : 378 ms P-R-T Axes : 038 064 063 degrees QTc Int : 469 ms Normal sinus rhythm Normal ECG Confirmed by CAROLINA ZEPEDA ([id number]), web editor NANDINI CAGLE ([id number]) on 01/09/2020 12:52:49 AM Referred By: Confirmed By:CAROLINA ZEPEDA
== END 2020-01-07 16:47 | disposition home or self-care (01) ==
LOC: ERS 23:25 → ERHOLD 01-06 01:25 → 2SW 01-06 16:33
PROVIDERS: ADMIT Internal Medicine; ATTEND Internal Medicine
DX: E87.5 Hyperkalemia (principal); I12.0 Hypertensive chronic kidney disease with stage 5 chronic kidney disease or end stage renal disease; E11.22 Type 2 diabetes mellitus with diabetic chronic kidney disease; N18.6 End stage renal disease; Z79.899 Other long term (current) drug therapy; Z99.2 Dependence on renal dialysis
CPT/HCPCS: 36415; 36416; 80048; 85025; 93005; 96372; G0378; J1644

== ENCOUNTER 2020-01-18 09:42 | Inpatient (IN) | payer MEDICAID, SELFPAY ==
--- NOTE | 2020-01-18 10:20 | RAD ---
Exam: Chest one view HISTORY:Dyspnea Comparison: 11/01/2019 FINDINGS: Cardiac silhouette:Enlarged cardiac silhouette Aorta: Unremarkable Pulmonary vessels: Normal Costophrenic angles: Bilateral pleural effusions with adjacent bibasilar opacities. Lines and tubes: Stable right-sided HemoSplit osseous catheter. LUNGS: Bibasilar opacities due to atelectasis, pneumonia, pulmonary edema or aspiration. Pneumothorax: None Osseous abnormalities: None IMPRESSION: 1. Pleural and parenchymal changes, presumed to be due to volume overload/pulmonary edema.
[2020-01-18 10:34] LABS: #Basophils 0.1 thou/uL (0.0-0.2); #Eosinphils 0.1 thou/uL (0.0-0.7); #Lymphocytes 0.7 thou/uL (1.20-3.40); #Neutrophils 10.2 thou/uL (1.40-6.50); %Basophils 0.5 % (0.0-1.0); %Eosinophils 0.4 % (0.0-10.0); %Lymphocytes 6.1 % (21.0-51.0); %Monocytes 8.2 % (0.0-10.0); %Neutrophils 84.8 % (42.0-75.0); Hemoglobin 9.8 g/dL (14.0-18.0); Mean Corpuscular HGB CONC 32.9 g/dL (32.0-36.0); Mean Corpuscular Hemoglobin 29.8 pg (27.0-31.0); Mean Corpuscular Volume 90.7 fL (78.0-98.0); Mean Platelet Volume 9.2 fL (7.4-10.4); Platelet Count 391 thou/uL (130-400); Red Blood Cell (RBC) Count 3.27 mill/uL (4.70-6.10)
[2020-01-18 10:56] LABS: ALT (SGPT) 21 U/L (8-55); AST (SGOT) 14 U/L (5-34); Albumin 3.7 g/dL (3.5-5.0); Alkaline Phosphatase 171 U/L (40-110); Anion Gap 26 mmol/L (10-20); Bilirubin, Total 0.6 mg/dL (0.2-1.2); CK (CPK) 433 U/L (30-200); Calc. Creatinine Clearance 0 mL/min (70-130); Calcium 7.7 mg/dL (7.8-10.44); Carbon Dioxide 17 mmol/L (22-29); Chloride 103 mmol/L (98-107); Estimated GFR-MDRD 5; Glucose 130 mg/dL (70-105); Potassium 6.2 mmol/L (3.5-5.1); Protein, Total 7.7 g/dL (6.0-8.3); Sodium 140 mmol/L (136-145)
[2020-01-18] MEDS ORDERED: Ondansetron PF 4 MG/2 ML Vial ONE (11:04)
[2020-01-18 11:13] LABS: BUN (Urea Nitrogen) 135 mg/dL (8.9-20.6)
[2020-01-18] MEDS ORDERED: Calcium Gluc 4.6 MEQ/10 ML (100 MG/ML) ONE (11:52)
[2020-01-18] MEDS ORDERED: Acetaminophen 325 MG TAB PO PRN (12:17)
[2020-01-18] MEDS ORDERED: Ondansetron PF 4 MG/2 ML Vial IVP PRN (12:17)
[2020-01-18] MEDS ORDERED: Ondansetron ODT 4 MG TAB SL PRN (12:17)
[2020-01-18 12:40] VITALS: BMI 21.4
[2020-01-18] MEDS ORDERED: Bisacodyl 5 MG TAB PO PRN (12:52)
--- NOTE | 2020-01-18 12:59 | HP ---
PRIMARY CARE PROVIDER: None. CHIEF COMPLAINT: Shortness of breath. HISTORY OF PRESENT ILLNESS: Mr. Barnett is a pleasant 34-year-old gentleman, who was seen at [facility] on January 18, 2020. He has a history of end-stage renal disease. He was admitted for hemodialysis on January 06, 2020. He reports that last night he started having abdominal bloating and shortness of breath. He denies any chest pain. He denies any nausea or vomiting. He denies any fevers or chills. He presented to the emergency room because of abdominal bloating and shortness of breath. REVIEW OF SYSTEMS: All systems were reviewed and found to be negative except for the pertinent positives mentioned above. PAST MEDICAL HISTORY: Hypertension and end-stage renal disease. PAST SURGICAL HISTORY: Right eye surgery and dialysis shunt. PSYCHIATRIC HISTORY: None. SOCIAL HISTORY: The patient denies tobacco use, alcohol use, or recreational drug use. FAMILY HISTORY: Significant for diabetes mellitus. ALLERGIES: NO KNOWN DRUG ALLERGIES. CURRENT MEDICATIONS: 1. Calcium acetate 667 mg capsules two capsules three times a day. 2. Calcitriol 0.25 mcg daily. 3. Amlodipine 10 mg daily. PHYSICAL EXAMINATION: GENERAL: On examination, Mr. Barnett is awake and alert, in mild respiratory distress. VITAL SIGNS: Blood pressure is 156/96, pulse 91, respiratory rate 24, and oxygen saturation 99% on BiPAP. He is afebrile. EYES: No scleral icterus, no conjunctival pallor. ENT: Moist mucosal membranes. No oropharyngeal erythema or exudates. NECK: Supple, nontender, trachea is midline. RESPIRATORY: Accessory muscles of breathing are active. Chest wall movements are symmetric bilaterally. He has bibasilar crackles. CARDIOVASCULAR: S1 and S2 are heard, regular. Peripheral pulses palpable. ABDOMEN: Soft, nontender, bowel sounds are heard. NEUROLOGIC: Cranial nerves 2 through 12 are intact. MUSCULOSKELETAL: Power is 5/5 in all 4 extremities. SKIN: No rashes. PSYCHIATRIC: Normal mood, normal affect, the patient is oriented to person, place, and time. LABORATORY DATA: Mr. Barnett's labs and investigations were reviewed. I reviewed his electrocardiogram, which shows normal sinus rhythm, no ST changes to suggest an acute coronary syndrome. I also reviewed his chest x-ray, which shows pulmonary edema. He has leukocytosis with 12,000 white cells, of which 84% are neutrophils. He has normocytic anemia with hemoglobin 9.8. Platelet count is normal. Sodium is normal. Potassium is elevated at 6.2. Blood urea nitrogen is elevated at 135, creatinine is elevated at 12.89. Carbon dioxide is decreased at 17 and anion gap is elevated at 26. Alkaline phosphatase is elevated at 171. CK is elevated at 433. Troponin I is normal. ASSESSMENT AND PLAN: Mr. Barnett is a pleasant 34-year-old gentleman, who was seen at [facility] on January 18, 2020. His problem list includes: 1. Acute hypoxic respiratory failure: Mr. Barnett presented with room air oxygen saturation of 89%. He is currently on BiPAP therapy, which I will continue. Feather Stitcher has been consulted for a more definitive treatment, which is fluid removal. The patient will be admitted to IMCU/CCU for the same. 2. End-stage renal disease, on dialysis: Dialysis per Nephrology Service. 3. Metabolic acidosis: Likely secondary to uremia. Check labs after dialysis. 4. Hypertension: Monitor vital signs and titrate antihypertensives as needed. 5. Hyperkalemia: The patient to undergo emergent dialysis. Many thanks for allowing me to participate in Mr. Barnett's care. Please feel free to contact me with any questions or concerns. LEVEL OF RISK: High. LEVEL OF COMPLEXITY: High. Job ID: [id number]
--- NOTE | 2020-01-18 18:03 | CON ---
DATE OF CONSULTATION: 01/18/2020 SERVICE: Pulmonary Medicine. REASON FOR CONSULT: ICU patient. HISTORY OF PRESENT ILLNESS: The patient is an unfortunate 34-year-old male with past medical history significant for end-stage renal disease. He does not have a dialysis chair. As such, he will hold off as long as he can before he seeks medical attention. On this occasion, he developed respiratory failure and shortness of breath. He presented to the Emergency Department with severe range blood pressures. He was initiated on dialysis. His oxygenation is actually already improving. He has yet to tolerate break off the BiPAP. Denies any current recent chills, fevers, nausea, vomiting, or diarrhea. I do have any hot, red, or swollen joints, rashes, abdominal discomfort, or dysuria. PAST MEDICAL HISTORY: 1. End-stage renal disease. 2. Hypertension. PAST SURGICAL HISTORY: 1. Dialysis shunt placement. 2. Right eye surgery. SOCIAL HISTORY: Negative for alcohol, tobacco, or illicit drug use currently. FAMILY HISTORY: Noncontributory. ALLERGIES: NO KNOWN DRUG ALLERGIES. MEDICATIONS: List of his inpatient medications was reviewed. No specific updates were made at this time. REVIEW OF SYSTEMS: General, head, ears, eyes, nose, throat, cardiovascular, respiratory, GI, , musculoskeletal, neurologic, and skin are negative except as mentioned in the HPI. PHYSICAL EXAMINATION: VITAL SIGNS: Afebrile, pulse 89, blood pressure 162/90, respirations 12, and saturation 99%, currently on BiPAP with 40% FiO2 delivered. GENERAL: The patient is awake and alert, in no apparent distress at this time. HEENT: Normocephalic and atraumatic. Sclerae white. Conjunctivae pink. Oral mucosa is moist without lesions. LUNGS: Extensive crackling is present. No prolonged expiratory phase or wheezing is appreciated. HEART: Normal rate. Regular. ABDOMEN: Soft, nontender, and nondistended. Bowel sounds are positive. MUSCULOSKELETAL: No cyanosis or clubbing. There is 1 to 2+ pitting throughout. NEUROLOGIC: Grossly nonfocal. LABORATORY DATA: WBC 12.0, hemoglobin 9.8, and platelets 391,000. Potassium 6.2. Creatinine 12.89 and BUN 135. Basic metabolic profile is otherwise unremarkable. Anion gap 26. Alkaline phosphatase 171, which is pretty close to where he has been running. CK 433 and troponin is negative x1. Liver function studies are otherwise unremarkable. IMAGING DATA: Chest x-ray demonstrates pattern consistent with pulmonary edema, with bilateral alveolar and interstitial infiltrates, cephalization, bilateral pleural effusions, widened carinal angle, and cardiomegaly. There is a tunneled dialysis catheter in the right IJ. ASSESSMENT: 1. Acute hypoxic respiratory failure. 2. Flash pulmonary edema. 3. Hypertensive emergency. 4. End-stage renal disease with no access to outpatient chair. DISCUSSION AND PLAN: The patient is doing fine on dialysis. Once he is done, BiPAP breaks will be given three times daily and increase as tolerated. We will wean away oxygen as tolerated. Hopefully, within 24 to 48 hours, he will be on room air. Repeat chest x-ray close to discharge from the hospital should be performed to verify improvement in infiltrates. We will observe for signs of sepsis. If identified , empiric antibiotics and panculture will be considered, but for the time being, I believe the elevated white blood cell count is simply secondary to his volume overload state. Critical Care will follow for now. 70 minutes have been devoted to this patient in various activities. I personally reviewed all imaging studies and laboratory data noted within this document. For fifty percent of this time, I was interacting with the patient at the bedside or coordinating care with the care team. For the remainder of the time I was immediately available to the patient in the hospital unit. Job ID: [id number] MTDD
[2020-01-18] MEDS ORDERED: hydrALAZINE 20 MG/ML VIAL SLOW IVP PRN (20:14)
[2020-01-18] MEDS ORDERED: Labetalol HCl 100 MG/20 ML VIAL SLOW IVP PRN (20:14)
--- NOTE | 2020-01-18 21:30 | PDOC.EVN ---
Event Note - Event Note Event Note: CCU reports patient tolerated HD well, removed 3L, NIPPV discontinued, tolerating 3L NC, eating, drinking and VS stable. Requesting down grade to telemetry floor. Discussed case with ZABRINA Lopes to down grade to telemetry.
[2020-01-19 04:05] LABS: #Basophils 0.2 thou/uL (0.0-0.2); #Eosinphils 0.2 thou/uL (0.0-0.7); #Lymphocytes 2.1 thou/uL (1.20-3.40); #Monocytes 1.3 thou/uL (0.11-0.59); #Neutrophils 6.1 thou/uL (1.40-6.50); %Basophils 1.5 % (0.0-1.0); %Eosinophils 2.1 % (0.0-10.0); %Lymphocytes 21.2 % (21.0-51.0); %Monocytes 12.9 % (0.0-10.0); %Neutrophils 62.3 % (42.0-75.0); Hemoglobin 9.9 g/dL (14.0-18.0); Mean Corpuscular HGB CONC 33.4 g/dL (32.0-36.0); Mean Corpuscular Hemoglobin 30.3 pg (27.0-31.0); Mean Corpuscular Volume 90.8 fL (78.0-98.0); Mean Platelet Volume 9.1 fL (7.4-10.4); Platelet Count 380 thou/uL (130-400); RBC Distribution Width 12.9 % (11.5-14.5); Red Blood Cell (RBC) Count 3.28 mill/uL (4.70-6.10); White Blood Cell (WBC) Count 9.9 thou/uL (4.8-10.8)
[2020-01-19 04:34] LABS: Anion Gap 19 mmol/L (10-20); BUN (Urea Nitrogen) 70 mg/dL (8.9-20.6); Calc. Creatinine Clearance 12 mL/min (70-130); Calcium 8.3 mg/dL (7.8-10.44); Carbon Dioxide 27 mmol/L (22-29); Chloride 100 mmol/L (98-107); Estimated GFR-MDRD 8; Glucose 79 mg/dL (70-105); Potassium 4.9 mmol/L (3.5-5.1); Sodium 141 mmol/L (136-145)
[2020-01-19 04:49] LABS: HBSAg Index 0.12 S/CO (0-0.99); Hep B Surf Ag Non-Reactive S/CO (NonReactive)
[2020-01-19] MEDS ORDERED: Prevnar 13-Val Conj/PF 0.5 ML SYRINGE IM ONE (09:00)
[2020-01-19] MEDS ORDERED: Amlodipine 10 MG TAB PO SCH (09:00)
[2020-01-19] MEDS ORDERED: Calcitriol 0.25 MCG CAP PO SCH (09:00)
--- NOTE | 2020-01-19 09:22 | PRG ---
DATE OF SERVICE: 01/19/2020 SUBJECTIVE: Mr. Barnett is a 34-year-old male with ESRD and was admitted for congestive heart failure/volume overload. Unfortunately, this patient is not able to avail Renal Services as an outpatient due to financial reasons. We are consulted for his hemodialysis. He underwent emergent hemodialysis for the shortness of breath/CHF. This morning, he is feeling a little better, but still with some degree of shortness of breath on exertion. No other complaints. OBJECTIVE: VITAL SIGNS: Blood pressure is 163/91, heart rate 89, respiratory rate 15, and O2 saturation 100%. GENERAL: Noted to be awake, alert, comfortable, not in distress. SKIN: Adequate turgor. HEENT: He has slightly pale conjunctivae. Anicteric sclerae. NECK: No neck mass. No carotid bruits. No JVD. CHEST: No deformities. LUNGS: Clear breath sounds. HEART: Normal sinus rhythm. No murmur. No gallops. No rubs. ABDOMEN: Globular, soft, and nontender. No masses. EXTREMITIES: No edema. No deformities. MEDICATIONS: Medications of January 19, 2020, reviewed. LABORATORY DATA: Laboratories of January 19, 2020; white count 9.9, hemoglobin 9.9, hematocrit 29.8. Sodium 141, potassium 4.9, chloride 100, carbon dioxide 27, BUN 70, creatinine 7.66, and calcium 8.3. ASSESSMENT AND PLAN: 1. End-stage renal disease - continuing hemodialysis regimen. We were able to use his arteriovenous fistula using a 17 needle. We will do another dialysis session today - 4 hours with fluid removal. 2. Congestive heart failure, stable, much improved. 3. Hypertension. Resume BP medications. 4. Renal osteodystrophy. I have restarted him back on calcitriol and PhosLo. 5. Anemia. Start ferrous sulfate as well as Epogen. Job ID: [id number]
[2020-01-19] MEDS: Ferrous Sulfate 325 MG TAB PO SCH ×2 (10:32→18:00)
--- NOTE | 2020-01-19 11:18 | PRG ---
DATE OF SERVICE: 01/19/2020 SERVICE: Pulmonary Medicine. INTERVAL HISTORY: The patient is doing fine from respiratory standpoint. He has been weaned down to room air. He denies any current chest discomfort, nausea, vomiting, fevers, or chills. Otherwise, he is in his usual state of health. He tolerated dialysis just fine yesterday, and he is being planned again here shortly. PHYSICAL EXAMINATION: VITAL PULSE: Afebrile, pulse 88, blood pressure 156/82, respirations 16, and saturation 92% on room air. GENERAL: The patient is awake and alert, in no apparent distress. LUNGS: Decent air entry without any prolonged expiratory phase. Dependent crackles are present. HEART: Normal rate and regular. ABDOMEN: Soft, nontender, and nondistended. Bowel sounds are positive. MUSCULOSKELETAL: No cyanosis or clubbing. No pitting in bilateral lower extremities. NEUROLOGIC: Grossly nonfocal. LABORATORY DATA: WBC 9.9, hemoglobin 9.9, and platelets 380,000. Creatinine 7.66 and BUN 70. Basic metabolic profile is otherwise unremarkable. ASSESSMENT: 1. Flash pulmonary edema, resolved. 2. Hypertensive emergency, resolved. 3. End-stage renal disease with no access to outpatient chair. 4. Acute hypoxic respiratory failure, resolved. DISCUSSION AND PLAN: The patient is doing great from a respiratory standpoint. At this point, he has no further requirements for inpatient Pulmonary or Critical Care opinion, and I will sign off. Please call with additional questions or concerns through time. Job ID: [id number]
[2020-01-19] MEDS: Calcium Acetate 667 MG CAP PO SCH ×2 (12:42→18:00)
[2020-01-19 19:13] VITALS: BP 163/89; TEMP 98.3
--- NOTE | 2020-01-19 19:19 | DIS ---
DATE OF ADMISSION: 01/18/2020 DATE OF DISCHARGE: 01/19/2020 PRIMARY CARE PROVIDER: Keven Nava MD DISCHARGE DIAGNOSES: 1. Acute hypoxic respiratory failure. 2. Flash pulmonary edema. 3. Hypertensive emergency. CONDITION: Condition of the patient on the day of discharge: Stable. I assessed Mr. Barnett on the day of discharge. He denies any chest pain or shortness of breath. Vital signs are stable. S1 and S2 are heard, regular. Lungs are clear to auscultation bilaterally. CONSULTATIONS DURING THIS HOSPITALIZATION: 1. Pulmonary and Critical Care Medicine, Dr. Sin. 2. Nephrology, Dr. Farris. HOSPITAL COURSE: Mr. Barnett is a pleasant 34-year-old gentleman, who was admitted to [facility] for acute hypoxic respiratory failure secondary to flash pulmonary edema because of nonaccess to dialysis facilities. He was admitted to [facility]. He was treated with emergent dialysis on the day of admission as well as the following day. He improved clinically and is oxygenating well on room air. He is being discharged home in a stable condition. POST-ACUTE CARE FOLLOWUP: With primary care provider in 3 days. DIET: Heart healthy and renal diet. ACTIVITY: No restrictions. DISCHARGE DESTINATION: Home. TIME SPENT: Total amount of time spent in coordinating this discharge: 32 minutes. Job ID: [id number]
--- NOTE | 2020-01-21 08:05 | PQF ---
Mauro Barnett DAVID [id number] CLINICAL DOCUMENTATION CLARIFICATION FORM: POST DISCHARGE Addendum to original discharge summary date: ____ Late entry note date: __ DATE:01/21/2020 ATTN: Paulino Larkin Please exercise your independent, professional judgment in responding to the clarification form. Clinical indicators are provided on the bottom of this form for your review In your clinical opinion based on clinical findings below, can you please further clarify documentation of Pulmonary vascular congestion if : Please check appropriate box(s): [ ] Acute Pulmonary Edema due to Dialysis [ ] Pulmonary edema due to CHF, please further specify: Acuity: [ ] Acute [ ] Chronic [ ] Acute on Chronic Type :[ ]Systolic [ ] Diastolic [ ] Combined [ x ] Other diagnosis ___Acute Pulmonary Edema due to Noncompliance with Dialysis [ ] Unable to determine In addition, please specify: Present on Admission (POA): [ x ] Yes [ ] No [ ] Unable to determine For continuity of documentation, please document condition throughout progress notes and discharge summary. Thank You. CLINICAL INDICATORS - SIGNS / SYMPTOMS / LABS Laboratory 01/17 WBC 12.0, Hgb 9.8, Hct 29.7, Potassium 6.2, Creatine Kinase 433, Troponin I Vital signs 01/17 BP 133/67, Pulse 101, Resp 23, Temp 98.4 ED notes p3 01/17 Pt presents to the ER with C/O abdominal pain and SOB ED notes p8 01/17 Pulmonary vascular congestion, renal failure, Respiratry failure H&P p1 01/17 Dr Hennessy He was admitted for hemodialysis on Jan 06. He reports that last night he started having abdominal bloating and SOB PN p1 01/18 Dr Farris admitted for Congestive heart failure/Volume overload PN p1 01/18 Dr Farris Congestive heart failure, stable, much improved Discharge summary p1 01/18 Dr Hennessy cute hypoxic respiratory failure secondary to flash pulmonary edema because of nonaccess to dialysis facilities RISK FACTORS H&P p1 01/17 HTN H&P p1 01/17 End stage renal Disease on Dialysis H&P p2 01/17 Acute Hypoxic Respiratory failure H&P p2 01/17 Metabolic acidosis H&P p2 01/17 Hyperkalemia PN p1 01/18 CHF Discharge summary p1 01/18 - flash pulmonary edema TREATMENTS: Hemodialysis 01/17 Respiratory panel 01/17 BiPAP Pulmonary consult 01/17 Sly Parry Collected 01/17 Chest Xray Event Note 01/19 Oxygen via NC (This form is maintained as a part of the permanent medical record) 2014 [employer]. All Rights Reserved [email or web address]
== END 2020-01-19 19:39 | disposition home or self-care (01) | DRG 189 ==
LOC: ERS 09:42 → ERHOLD 11:22 → CCU 12:09 → 2SW 01-19 09:38
PROVIDERS: ADMIT Internal Medicine; ATTEND Internal Medicine
PROC: 5A1D70Z Performance of Urinary Filtration, Intermittent, Less than 6 Hours Per Day (ICD-10-PCS; principal; 2020-01-18)
PROC: 5A09357 Assistance with Respiratory Ventilation, Less than 24 Consecutive Hours, Continuous Positive Airway Pressure (ICD-10-PCS; 2020-01-18)
DX: J96.01 Acute respiratory failure with hypoxia (principal); J81.0 Acute pulmonary edema; N18.6 End stage renal disease; I16.1 Hypertensive emergency; I12.0 Hypertensive chronic kidney disease with stage 5 chronic kidney disease or end stage renal disease; E87.2 Acidosis; E87.5 Hyperkalemia; D63.1 Anemia in chronic kidney disease; N25.0 Renal osteodystrophy; Z28.21 Immunization not carried out because of patient refusal; Z99.2 Dependence on renal dialysis; Z79.899 Other long term (current) drug therapy; Z91.15 Patient's noncompliance with renal dialysis
CPT/HCPCS: 36415; 36416; 71045; 80048; 80053; 82550; 84484; 85025; 87340; 90935; 93005; 94660; G0257; J2405

== ENCOUNTER 2020-02-04 08:23 | Inpatient (IN) | payer MEDICAID, SELFPAY ==
[2020-02-04 10:01] LABS: ALT (SGPT) 20 U/L (8-55); AST (SGOT) 15 U/L (5-34); Albumin 3.7 g/dL (3.5-5.0); Alkaline Phosphatase 121 U/L (40-110); Anion Gap 23 mmol/L (10-20); BUN (Urea Nitrogen) 134 mg/dL (8.9-20.6); Bilirubin, Total 0.4 mg/dL (0.2-1.2); Calc. Creatinine Clearance 0 mL/min (70-130); Calcium 7.2 mg/dL (7.8-10.44); Carbon Dioxide 17 mmol/L (22-29); Chloride 105 mmol/L (98-107); Estimated GFR-MDRD 4; Globulin 3.5 g/dL (2.4-3.5); Glucose 128 mg/dL (70-105); Protein, Total 7.2 g/dL (6.0-8.3); Sodium 138 mmol/L (136-145)
[2020-02-04 10:06] LABS: Potassium 6.7 mmol/L (3.5-5.1)
[2020-02-04 11:39] LABS: #Basophils 0.2 thou/uL (0.0-0.2); #Eosinphils 0.3 thou/uL (0.0-0.7); #Lymphocytes 1.5 thou/uL (1.20-3.40); #Monocytes 0.7 thou/uL (0.11-0.59); #Neutrophils 6.6 thou/uL (1.40-6.50); %Basophils 1.8 % (0.0-1.0); %Eosinophils 2.9 % (0.0-10.0); %Lymphocytes 16.3 % (21.0-51.0); %Monocytes 7.9 % (0.0-10.0); %Neutrophils 71.1 % (42.0-75.0); Hemoglobin 8.8 g/dL (14.0-18.0); Mean Corpuscular HGB CONC 33.4 g/dL (32.0-36.0); Mean Corpuscular Hemoglobin 29.8 pg (27.0-31.0); Mean Corpuscular Volume 89.4 fL (78.0-98.0); Mean Platelet Volume 8.6 fL (7.4-10.4); Platelet Count 321 thou/uL (130-400); RBC Distribution Width 12.6 % (11.5-14.5); Red Blood Cell (RBC) Count 2.96 mill/uL (4.70-6.10); White Blood Cell (WBC) Count 9.2 thou/uL (4.8-10.8)
[2020-02-04 12:18] VITALS: BMI 25.0
[2020-02-04] MEDS ORDERED: HYDROcodone/Acetaminophen 5/325 mg Tablet PO PRN (12:18)
[2020-02-04] MEDS ORDERED: Ondansetron PF 4 MG/2 ML Vial IVP PRN (12:18)
[2020-02-04] MEDS ORDERED: Bisacodyl 10 MG SUPP PR PRN (12:18)
[2020-02-04] MEDS ORDERED: Acetaminophen 325 MG TAB PO PRN (12:18)
[2020-02-04] MEDS ORDERED: Benzonatate 100 MG CAP PO PRN (12:21)
[2020-02-04] MEDS ORDERED: Melatonin 3 MG TAB PO PRN (12:21)
[2020-02-04] MEDS ORDERED: Labetalol HCl 100 MG/20 ML VIAL SLOW IVP PRN (12:21)
[2020-02-04] MEDS ORDERED: diphenhydrAMINE 25 MG CAP PO PRN (12:21)
[2020-02-04] MEDS ORDERED: Docusate 100 MG CAP PO PRN (12:21)
--- NOTE | 2020-02-04 12:24 | PDOC.HHP ---
Hospitalist HPI - History of Present Illness Abnormal labs, needs HD History of Present Illness: Very pleasant 34-year-old gentleman with past medical history of end-stage renal disease on hemodialysis and hypertension presents with abnormal labs and needing hemodialysis. Patient receives hemodialysis roughly every 15 days and he gets this dialysis through the hospital exclusively. Patient had labs done in Dr. Farris's office is [facility] roughly 2 days ago, with elevated potassium and worsening of renal function he was recommended to come to emergency department. Patient found have potassium of 6.7 and he was needing urgent hemodialysis. Patient is breathing comfortably on room air. Patient denies pain. Patient has not had any nausea or vomiting. Review of systems is otherwise was benign. Patient known to me as I have cared for him in the past in a similar situation. He will require admission and likely several rounds of hemodialysis to get him into a euvolemic state with electrolytes being normal. Patient admitted to medical unit with telemetry to monitor for rhythm abnormalities with elevated potassium. Hospitalist ROS - Review of Systems All other systems reviewed; all pertinent +/- noted in HPI/Subj Hospitalist History - Past Medical History Source: patient, old records Pulmonary: reports: hypertension Renal/: reports: Chronic renal failure - Past Surgical History Past Surgical History: reports: Other - Family History Family History: reports: hypertension - Social History Smoking Status: Never smoker Alcohol: reports: None Drugs: reports: none Living Situation: With Family Domestic Violence: Negative Activity level: independent ambulation - Exam General Appearance: NAD, awake alert Eye: PERRL, anicteric sclera ENT: normocephalic atraumatic, moist mucosa Neck: supple, symmetric, no lymphadenopathy Heart: RRR, no murmur, no gallops, no rubs, normal peripheral pulses Respiratory: CTAB, no wheezes, no rales, no ronchi, normal chest expansion, no tachypnea Gastrointestinal: soft, non-tender, non-distended, no guarding, no rigidity Extremities: 1+ LE edema Skin: no lesions, no rashes Neurological: cranial nerve grossly intact, no focal deficits Musculoskeletal: normal strength Psychiatric: normal affect, normal behavior, A&O x 3 Hospitalist Results - Labs Result Diagrams: 02/04/20 11:26 02/04/20 09:33 Lab results: WBC 9.2 thou/uL (4.8-10.8) 02/04/20 11:26 Hgb 8.8 g/dL (14.0-18.0) L 02/04/20 11:26 Hct 26.4 % (42.0-52.0) L 02/04/20 11:26 MCV 89.4 fL (78.0-98.0) 02/04/20 11:26 Plt Count 321 thou/uL (130-400) 02/04/20 11:26 Neutrophils % 71.1 % (42.0-75.0) 02/04/20 11:26 Sodium 138 mmol/L (136-145) 02/04/20 09:33 Potassium 6.7 mmol/L (3.5-5.1) H* 02/04/20 09:33 Chloride 105 mmol/L (98-107) 02/04/20 09:33 Carbon Dioxide 17 mmol/L (22-29) L 02/04/20 09:33 BUN 134 mg/dL (8.9-20.6) H 02/04/20 09:33 Creatinine 14.34 mg/dL (0.7-1.3) H 02/04/20 09:33 Glucose 128 mg/dL (70-105) H 02/04/20 09:33 Calcium 7.2 mg/dL (7.8-10.44) L 02/04/20 09:33 Total Bilirubin 0.4 mg/dL (0.2-1.2) 02/04/20 09:33 AST 15 U/L (5-34) 02/04/20 09:33 ALT 20 U/L (8-55) 02/04/20 09:33 Alkaline Phosphatase 121 U/L (40-110) H 02/04/20 09:33 Serum Total Protein 7.2 g/dL (6.0-8.3) 02/04/20 09:33 Albumin 3.7 g/dL (3.5-5.0) 02/04/20 09:33 Hospitalist H&P A/P - Problem (1) Chronic renal failure, stage 5 Code(s): N18.5 - CHRONIC KIDNEY DISEASE, STAGE 5 Status: Acute (2) Diastolic CHF Code(s): I50.30 - UNSPECIFIED DIASTOLIC (CONGESTIVE) HEART FAILURE Status: Acute (3) Hyperkalemia Code(s): E87.5 - HYPERKALEMIA Status: Resolved - Plan Plan: Plan: admit to medical unit with telemetry nephrology consultation, recommendations appreciated continuous telemetry to monitor for rhythm abnormalities patient needing urgent hemodialysis for electrolyte correction reviewer systems is otherwise benign breathing comfortably on room air deny shortness of breath denies chest pain continue home medications for blood pressure continue other home medications as able blood pressure control blood sugar control G.I. prophylaxis DVT prophylaxis
[2020-02-04] MEDS: Calcium Acetate 667 MG CAP PO SCH (18:06)
[2020-02-05 05:20] LABS: Anion Gap 19 mmol/L (10-20); BUN (Urea Nitrogen) 61 mg/dL (8.9-20.6); Calc. Creatinine Clearance 11 mL/min (70-130); Calcium 7.9 mg/dL (7.8-10.44); Carbon Dioxide 24 mmol/L (22-29); Chloride 100 mmol/L (98-107); Estimated GFR-MDRD 8; Glucose 73 mg/dL (70-105); Potassium 4.5 mmol/L (3.5-5.1); Sodium 138 mmol/L (136-145)
[2020-02-05] MEDS: Calcium Acetate 667 MG CAP PO SCH ×3 (09:05→16:54)
[2020-02-05] MEDS ORDERED: Epoetin (ESRD) 20,000 UNITS/ML SC SCH (11:45)
[2020-02-05] MEDS ORDERED: EPOETIN ALFA-EPBX (ESRD) 4,000 UNIT/ML VIAL SC SCH (12:00)
--- NOTE | 2020-02-05 12:17 | PRG ---
DATE OF SERVICE: 02/05/2020 SUBJECTIVE: Mr. Barnett is a 34-year-old male with ESRD and admitted for hyperkalemia. Due to financial reasons, this patient is unable to qualify for any outpatient hemodialysis. He underwent 2 consecutive days of hemodialysis. He is undergoing for his second dialysis session today. He also noted he has some erythema around the catheter site. We will be starting him on antibiotics. In addition, surgical consult will be done for removal of his dialysis catheter. We were able to use his AV fistula successfully. He voices no other complaints. No chest pain or shortness of breath. OBJECTIVE: VITAL SIGNS: Blood pressure 152/80, heart rate 75, respiratory rate 16, temperature 98.3, pulse ox 100%. GENERAL: Noted to be awake, alert, comfortable, not in overt distress. SKIN: Adequate turgor. HEENT: He has a slightly pale conjunctivae. Anicteric sclerae. NECK: No neck mass. No carotid bruits. No JVD. CHEST: No deformities. LUNGS: Clear breath sounds. HEART: Normal sinus rhythm. No murmur. No gallops. No rubs. ABDOMEN: Globular, soft, nontender. No masses. EXTREMITIES: No edema. No deformities. MEDICATIONS: On February 05, 2020, were reviewed. LABORATORY DATA: On February 04, 2020; white count 9.2, hemoglobin 8.8. February 05, 2020; sodium 138, potassium 4.5, chloride 100, carbon dioxide 24, BUN 61, creatinine 8.25, glucose 73, calcium 7.9. ASSESSMENT AND PLAN: 1. End-stage renal disease-undergoing hemodialysis today. Continue said dialysis regimen. He comes to the hospital on a p.r.n. hemodialysis. Again due to financial reasons, we are unable to place this patient for outpatient hemodialysis. He has been counseled regarding these and with the things, he needs to do to qualify for outpatient hemodialysis. 2. Anemia. Epogen 7500 units subcutaneous q.week and ferrous sulfate 325 mg p.o. b.i.d. 3. Access site infection?-Augmentin 500 mg one tablet b.i.d. Consult Surgery for hemodialysis catheter with hemodialysis catheter removal. Overall, agree with current management. Job ID: [id number]
[2020-02-05] MEDS: Amlodipine 10 MG TAB PO SCH (12:59)
[2020-02-05] MEDS: Calcitriol 0.25 MCG CAP PO SCH (12:59)
--- NOTE | 2020-02-05 13:18 | PDOC.HOSPP ---
- Subjective Encounter Date: 02/05/20 Encounter Time: 12:30 Subjective: Patient seen and examined for Hyperkalemia. s/o dialysis today. No fever. No new complaints. No overnight events - Objective Vital Signs & Weight: Vital Signs (12 hours) Temp Pulse Resp BP BP Pulse Ox 02/05/20 12:59 81 125/81 02/05/20 12:42 98.6 F 81 18 125/81 99 02/05/20 07:31 98.3 F 75 16 152/80 H 100 02/05/20 04:05 97.9 F 77 16 139/79 98 Weight Weight 129 lb 12.8 oz I&O: 02/04/20 02/05/20 02/06/20 06:59 06:59 06:59 Intake Total 840 Output Total 3600 Balance -2760 Result Diagrams: 02/04/20 11:26 02/05/20 04:29 EKG Reviewed by me: Yes (SR) Hospitalist ROS - Review of Systems Respiratory: denies: cough, dry, shortness of breath, hemoptysis, SOB with excertion, pleuritic pain, sputum, wheezing, other Cardiovascular: denies: chest pain, palpitations, orthopnea, paroxysmal noc. dyspnea, edema, light headedness, other - Medication Medications: Active Medications Generic Name Dose Route Start Last Admin Trade Name Kim PRN Reason Stop Dose Admin Amlodipine Besylate 10 mg 02/05/20 09:00 02/05/20 12:59 Norvasc PO 10 mg DAILY LIZZ Administration Calcitriol 0.25 mcg 02/05/20 09:00 02/05/20 12:59 Rocaltrol PO 0.25 mcg DAILY LIZZ Administration Calcium Acetate 1,334 mg 02/04/20 17:00 02/05/20 12:59 Phoslo PO 1,334 mg TID-WM LIZZ Administration - Exam Heart: RRR, no gallops Respiratory: CTAB, no rales Gastrointestinal: soft, non-distended Extremities: no cyanosis Neurological: no new deficit Hosp A/P - Plan DVT proph w/SCDs Hyperkalemia ESRD on dialysis HTN Chronic Anemia due to renal suff ?infected dialysis catheter PLAN: Dialysis per Nephrology Remove dialysis catheter per Nephrology Cont Amlodipine Augmentin started
[2020-02-05] MEDS: Amoxicillin/Potassium Clav 500 MG TAB PO SCH ×2 (14:21→20:56)
[2020-02-05] MEDS: Ferrous Sulfate 325 MG TAB PO SCH (16:54)
[2020-02-06] MEDS: Ferrous Sulfate 325 MG TAB PO SCH ×2 (09:06→16:09)
[2020-02-06] MEDS: Calcium Acetate 667 MG CAP PO SCH ×3 (09:06→16:09)
[2020-02-06] MEDS: Calcitriol 0.25 MCG CAP PO SCH (09:07)
[2020-02-06] MEDS: Amoxicillin/Potassium Clav 500 MG TAB PO SCH ×2 (09:10→20:28)
[2020-02-06] MEDS: Amlodipine 10 MG TAB PO SCH (09:12)
--- NOTE | 2020-02-06 12:55 | PDOC.HOSPP ---
- Subjective Encounter Date: 02/06/20 Encounter Time: 07:30 Subjective: Patient seen and examined for Hyperkalemia. No CP/SOB. No new complaints. No overnight events - Objective Vital Signs & Weight: Vital Signs (12 hours) Temp Pulse Resp BP Pulse Ox 02/06/20 12:00 97.8 F 80 18 95/64 97 02/06/20 08:00 97.7 F 79 18 96/67 98 02/06/20 03:04 98 Weight Weight 129 lb 6.581 oz I&O: 02/05/20 02/06/20 02/07/20 06:59 06:59 06:59 Intake Total 840 240 Output Total 3600 Balance -2760 240 Result Diagrams: 02/04/20 11:26 02/05/20 04:29 Hospitalist ROS - Review of Systems Respiratory: denies: cough, dry, shortness of breath, hemoptysis, SOB with excertion, pleuritic pain, sputum, wheezing, other Cardiovascular: denies: chest pain, palpitations, orthopnea, paroxysmal noc. dyspnea, edema, light headedness, other Gastrointestinal: denies: nausea, vomiting, abdominal pain, diarrhea, constipation, melena, hematochezia, other - Medication Medications: Active Medications Generic Name Dose Route Start Last Admin Trade Name Freq PRN Reason Stop Dose Admin Amlodipine Besylate 10 mg 02/05/20 09:00 02/06/20 09:12 Norvasc PO Not Given DAILY LIZZ Amoxicillin/Clavulanate Potassium 500 mg 02/05/20 13:00 02/06/20 09:10 Augmentin PO 02/11/20 21:01 500 mg BID LIZZ Administration Calcitriol 0.25 mcg 02/05/20 09:00 02/06/20 09:07 Rocaltrol PO 0.25 mcg DAILY LIZZ Administration Calcium Acetate 1,334 mg 02/04/20 17:00 02/06/20 12:34 Phoslo PO 1,334 mg TID-WM LIZZ Administration Epoetin Esdras-epbx 7,500 unit 02/05/20 12:00 02/05/20 14:20 Retacrit SC 7,500 unit Q7D LIZZ Administration Ferrous Sulfate 325 mg 02/05/20 17:00 02/06/20 09:06 Feosol PO 325 mg BID-WM LIZZ Administration - Exam General Appearance: NAD Neck: supple, no JVD Heart: RRR, no gallops Heart - other findings: no tenderness over the dialysis catheter Respiratory: no wheezes, no ronchi Gastrointestinal: non-tender, non-distended, normal bowel sounds Extremities: no cyanosis Neurological: no new deficit Hosp A/P - Plan DVT proph w/SCDs Hyperkalemia ESRD on dialysis HTN Chronic Anemia due to renal suff ?infected dialysis catheter PLAN: Cont Augmentin Dialysis per Nephrology Await removal dialysis catheter per Nephrology Cont Amlodipine and other meds as above
[2020-02-07] MEDS ORDERED: Lidocaine 1% w/Epinephrine 1:100K 20 ML VIAL ONE (08:55)
[2020-02-07] MEDS ORDERED: Vancomycin 1 GM in Premix Bag 1 BAG IVPB SCH (10:30)
--- NOTE | 2020-02-07 10:49 | PRG ---
DATE OF SERVICE: 02/07/2020 SUBJECTIVE: Mr. Barnett is a 34-year-old male with ESRD and being seen for management of his ESRD. As previously mentioned, due to financial reasons, he is unable to pursue an outpatient dialysis program. During this hospitalization, we noted he had some exit site erythema from his dialysis catheter. We have consulted Surgery for removal of this dialysis catheter. In addition, he has been started on Augmentin. We will give him a one time dose of vancomycin today. He voices no other complaints. OBJECTIVE: VITAL SIGNS: Blood pressure is 113/75, heart rate 82, respiratory rate 18, temperature 97.4, pulse ox 100%. GENERAL: Noted to be awake, alert, comfortable, not in overt distress. SKIN: Adequate turgor. HEENT: Slightly pale conjunctivae. Anicteric sclerae. NECK: No neck mass. No carotid bruits. No JVD. CHEST: No deformities. He has slightly erythema around the dialysis catheter site. LUNGS: Clear breath sounds. HEART: Normal sinus rhythm. No murmurs, gallops, or rubs. ABDOMEN: Globular, soft, nontender, no masses. EXTREMITIES: No edema, no deformities. MEDICATIONS: Of February 07, 2020, reviewed. LABORATORY DATA: Laboratories of February 04, 2020, hemoglobin 8.8. February 05, 2020, BUN 61, creatinine 8.25, potassium 4.5. ASSESSMENT AND PLAN: 1. Hyperkalemia, resolved. Undergoing hemodialysis. 2. Exit site erythema/infection-on empiric Augmentin. In addition, we will give one time dose of vancomycin. We will consult Surgery for removal of dialysis catheter. 3. Endstage renal disease, stable. We will continue p.r.n. hemodialysis with this patient. Again, he is unable to pursue outpatient dialysis treatment. He comes back p.r.n. at hospital. 4. Anemia, on Epogen and iron supplementation. 5. Agree with current management. Job ID: [id number]
--- NOTE | 2020-02-07 13:22 | OP ---
DATE OF PROCEDURE: 02/07/2020 PREOPERATIVE DIAGNOSES: Functioning right Nina fistula, end-stage renal disease, needs right IJ cuffed tunneled hemodialysis catheter removed. POSTOPERATIVE DIAGNOSES: Functioning right Nina fistula, end-stage renal disease, needs right IJ cuffed tunneled hemodialysis catheter removed. PROCEDURE PERFORMED: Removal of right IJ cuffed tunneled hemodialysis catheter at bedside. ANESTHESIA: 1% Xylocaine with epinephrine local anesthesia. INDICATIONS: A 34-year-old male, whom in November 01, 2019, I performed a right Nina fistula, he stays here illegally and presents for dialysis periodically. In the hospital, they have been using his fistula reliably. I have been asked to see him to remove his hemodialysis catheter. After informed consent, that was performed. DESCRIPTION OF PROCEDURE: The patient at bedside, right chest wall exit catheter site prepared with ChloraPrep and local anesthetic was infiltrated in the skin and subcutaneous tissue, suture removed, catheter and cuff dissected free, removed. Pressure held hemostatic. Dressing was applied. The patient tolerated the procedure well. Job ID: [id number]
[2020-02-07] MEDS: Calcium Acetate 667 MG CAP PO SCH ×3 (14:46→15:39)
[2020-02-07] MEDS: Calcitriol 0.25 MCG CAP PO SCH (14:47)
[2020-02-07] MEDS: Ferrous Sulfate 325 MG TAB PO SCH ×2 (14:47→15:39)
[2020-02-07] MEDS: Amlodipine 10 MG TAB PO SCH (15:34)
[2020-02-07] MEDS: Amoxicillin/Potassium Clav 500 MG TAB PO SCH (15:38)
[2020-02-07 16:06] VITALS: BP 103/69; TEMP 97.7
--- NOTE | 2020-02-07 17:40 | DIS ---
DATE OF ADMISSION: 02/04/2020 DATE OF DISCHARGE: 02/07/2020 DISCHARGE DISPOSITION: Home. FOLLOWUP: Follow up with primary care physician at [facility] in 1 week. The patient was seen and examined on the day of discharge. Denies any new complaints. No chest pain, shortness of breath, fever, or chills reported. INPATIENT PROCEDURES: On February 07, 2020, the patient underwent removal of the right IJ cuffed tunneled hemodialysis catheter at the bedside. BRIEF HOSPITAL COURSE: The patient is a 34-year-old male with end-stage renal disease, on intermittent dialysis due to insurance reason, presented to the emergency room with abnormal labs. He was found to have potassium of 6.7 along with creatinine of 14.34 and BUN of 134. He underwent hemodialysis per Nephrology, Dr. Farris. The patient has a functioning dialysis fistula. For this reason, the right IJ cuffed hemodialysis catheter was removed. There was also concern for possible infection. He has been started on Augmentin per Nephrology, which will be continued as outpatient. He has been cleared by consultants for discharge. FINAL DIAGNOSES: 1. Hyperkalemia. 2. End-stage renal disease, on intermittent dialysis due to financial reason. 3. Hypertension. 4. Chronic anemia due to renal insufficiency. 5. Questionable infected dialysis catheter. 6. The patient understands the above plan of care. Job ID: [id number]
== END 2020-02-07 16:36 | disposition home or self-care (01) | DRG 640 ==
LOC: ERS 08:23 → 2SW 11:00 → OBSVTOIN 11:00 → T4-A 02-05 16:05
PROVIDERS: ADMIT Internal Medicine; ATTEND Internal Medicine
PROC: 5A1D70Z Performance of Urinary Filtration, Intermittent, Less than 6 Hours Per Day (ICD-10-PCS; 2020-02-04)
PROC: 0JPT0XZ Removal of Tunneled Vascular Access Device from Trunk Subcutaneous Tissue and Fascia, Open Approach (ICD-10-PCS; principal; 2020-02-07)
PROC: 05PYX3Z Removal of Infusion Device from Upper Vein, External Approach (ICD-10-PCS; 2020-02-07)
DX: E87.5 Hyperkalemia (principal); N18.6 End stage renal disease; T82.7XXA Infection and inflammatory reaction due to other cardiac and vascular devices, implants and grafts, initial encounter; I13.2 Hypertensive heart and chronic kidney disease with heart failure and with stage 5 chronic kidney disease, or end stage renal disease; I50.32 Chronic diastolic (congestive) heart failure; Z99.2 Dependence on renal dialysis; Y84.8 Other medical procedures as the cause of abnormal reaction of the patient, or of later complication, without mention of misadventure at the time of the procedure; D63.1 Anemia in chronic kidney disease; Z82.49 Family history of ischemic heart disease and other diseases of the circulatory system; R40.2362 Coma scale, best motor response, obeys commands, at arrival to emergency department; R40.2142 Coma scale, eyes open, spontaneous, at arrival to emergency department; R40.2252 Coma scale, best verbal response, oriented, at arrival to emergency department
CPT/HCPCS: 36415; 80048; 80053; 85025; 90935; 93005; G0257; J3370; Q5105

== ENCOUNTER 2020-02-24 07:31 | Emergency (ER) | payer MEDICAID, SELFPAY ==
--- NOTE | 2020-02-24 08:07 | RAD ---
EXAM: CHEST ONE VIEW HISTORY: Dyspnea COMPARISON: 01/18/2020 FINDINGS: The tunneled right internal jugular vein hemodialysis catheter has been removed. Cardiac silhouette i s magnified by projection but does appear mildly enlarged. There is mild increase in central pulmonary vasculature. Small bilateral pleural effusions are present no consolidation is seen. No oth er interval change. IMPRESSION: 1. Pulmonary vascular congestion. 2. Small bilateral pleural effusions.
[2020-02-24 08:21] LABS: #Basophils 0.2 thou/uL (0.0-0.2); #Eosinphils 0.3 thou/uL (0.0-0.7); #Lymphocytes 1.7 thou/uL (1.20-3.40); #Monocytes 0.8 thou/uL (0.11-0.59); #Neutrophils 6.5 thou/uL (1.40-6.50); %Basophils 2.1 % (0.0-1.0); %Eosinophils 3.5 % (0.0-10.0); %Lymphocytes 17.9 % (21.0-51.0); %Neutrophils 68.5 % (42.0-75.0); Hemoglobin 7.9 g/dL (14.0-18.0); Mean Corpuscular HGB CONC 33.1 g/dL (32.0-36.0); Mean Corpuscular Hemoglobin 29.5 pg (27.0-31.0); Mean Corpuscular Volume 89.2 fL (78.0-98.0); Mean Platelet Volume 8.5 fL (7.4-10.4); Platelet Count 346 thou/uL (130-400); RBC Distribution Width 13.2 % (11.5-14.5); Red Blood Cell (RBC) Count 2.69 mill/uL (4.70-6.10); White Blood Cell (WBC) Count 9.4 thou/uL (4.8-10.8)
[2020-02-24 08:47] LABS: ALT (SGPT) 18 U/L (8-55); AST (SGOT) 13 U/L (5-34); Albumin 3.9 g/dL (3.5-5.0); Alkaline Phosphatase 147 U/L (40-110); Anion Gap 28 mmol/L (10-20); Bilirubin, Total 0.6 mg/dL (0.2-1.2); Calc. Creatinine Clearance 0 mL/min (70-130); Calcium 6.6 mg/dL (7.8-10.44); Carbon Dioxide 16 mmol/L (22-29); Chloride 102 mmol/L (98-107); Estimated GFR-MDRD 3; Glucose 124 mg/dL (70-105); Magnesium 2.7 mg/dL (1.6-2.6); Potassium 5.2 mmol/L (3.5-5.1); Protein, Total 7.9 g/dL (6.0-8.3); Sodium 141 mmol/L (136-145)
[2020-02-24 08:52] LABS: Phosphorus 10.4 mg/dL (2.3-4.7)
[2020-02-24 09:00] LABS: BUN (Urea Nitrogen) 161 mg/dL (8.9-20.6)
[2020-02-24 17:11] LABS: HBSAB Concentration 2.05 mIU/mL; HBSAg Index 0.18 S/CO (0-0.99); Hep B Surf AB Non-Reactive (NonReactive); Hep B Surf Ag Non-Reactive S/CO (NonReactive)
== END 2020-02-24 19:51 | disposition home or self-care (01) ==
LOC: ERS 07:31
DX: I12.0 Hypertensive chronic kidney disease with stage 5 chronic kidney disease or end stage renal disease (principal); N18.6 End stage renal disease; J81.0 Acute pulmonary edema; Z99.2 Dependence on renal dialysis
CPT/HCPCS: 36415; 71045; 80053; 83735; 84100; 85025; 86706; 87340; 90935; 93005; G0257

== ENCOUNTER 2020-03-09 08:35 | Emergency (ER) | payer MEDICAID, SELFPAY ==
[2020-03-09 09:33] LABS: #Basophils 0.1 thou/uL (0.0-0.2); #Eosinphils 0.2 thou/uL (0.0-0.7); #Lymphocytes 1.2 thou/uL (1.20-3.40); #Monocytes 0.7 thou/uL (0.11-0.59); #Neutrophils 6.4 thou/uL (1.40-6.50); %Basophils 1.5 % (0.0-1.0); %Eosinophils 2.9 % (0.0-10.0); %Lymphocytes 13.4 % (21.0-51.0); %Monocytes 7.7 % (0.0-10.0); %Neutrophils 74.5 % (42.0-75.0); Hemoglobin 8.1 g/dL (14.0-18.0); Mean Corpuscular HGB CONC 31.9 g/dL (32.0-36.0); Mean Corpuscular Hemoglobin 29.1 pg (27.0-31.0); Mean Corpuscular Volume 91.1 fL (78.0-98.0); Mean Platelet Volume 9.1 fL (7.4-10.4); Platelet Count 476 thou/uL (130-400); RBC Distribution Width 13.1 % (11.5-14.5); Red Blood Cell (RBC) Count 2.77 mill/uL (4.70-6.10); White Blood Cell (WBC) Count 8.6 thou/uL (4.8-10.8)
[2020-03-09 09:51] LABS: ALT (SGPT) 16 U/L (8-55); AST (SGOT) 13 U/L (5-34); Albumin 4.1 g/dL (3.5-5.0); Alkaline Phosphatase 169 U/L (40-110); Anion Gap 25 mmol/L (10-20); Bilirubin, Total 0.6 mg/dL (0.2-1.2); Calc. Creatinine Clearance 0 mL/min (70-130); Calcium 8.1 mg/dL (7.8-10.44); Carbon Dioxide 17 mmol/L (22-29); Chloride 101 mmol/L (98-107); Estimated GFR-MDRD 3; Globulin 4.3 g/dL (2.4-3.5); Glucose 115 mg/dL (70-105); Magnesium 2.6 mg/dL (1.6-2.6); Phosphorus 8.5 mg/dL (2.3-4.7); Potassium 5.5 mmol/L (3.5-5.1); Protein, Total 8.4 g/dL (6.0-8.3); Sodium 137 mmol/L (136-145)
[2020-03-09 10:04] LABS: BUN (Urea Nitrogen) 122 mg/dL (8.9-20.6)
--- NOTE | 2020-03-09 11:42 | RAD ---
SINGLE VIEW OF THE CHEST: COMPARISON: 02/24/2020. HISTORY: Not feeling well. Dialysis patient with shortness of breath. FINDINGS: A single view of the chest shows an enlarged cardiomediastinal silhouette. There appear to be small bilateral pleural effusions. Perihilar opacities may represent pulmonary vascular congestion. IMPRESSION: Findings are consistent with congestive heart failure. POS: MARICRUZA
[2020-03-09] MEDS ORDERED: EPOETIN ALFA-EPBX (ESRD) 4,000 UNIT/ML VIAL SC SCH (12:15)
--- NOTE | 2020-03-10 14:26 | EKG ---
Test Reason : Blood Pressure : / mmHG Vent. Rate : 077 BPM Atrial Rate : 077 BPM P-R Int : 154 ms QRS Dur : 092 ms QT Int : 430 ms P-R-T Axes : 022 059 052 degrees QTc Int : 486 ms Normal sinus rhythm Prolonged QT Abnormal ECG Confirmed by EMILIANO PINA DO ([id number]), social media editor NANDINI CAGLE ([id number]) on 03/10/2020 2:25:25 PM Referred By: Confirmed By:EMILIANO PINA DO
== END 2020-03-09 16:31 | disposition home or self-care (01) ==
LOC: ERS 08:35
DX: N17.9 Acute kidney failure, unspecified (principal); I10 Essential (primary) hypertension; Z79.899 Other long term (current) drug therapy
CPT/HCPCS: 71045; 80053; 83735; 84100; 85025; 90935; 93005; G0257; Q5105

== ENCOUNTER 2020-03-20 05:05 | Emergency (ER) | payer MEDICAID, SELFPAY ==
[2020-03-20 05:26] LABS: #Basophils 0.1 thou/uL (0.0-0.2); #Eosinphils 0.1 thou/uL (0.0-0.7); #Lymphocytes 1.3 thou/uL (1.20-3.40); #Neutrophils 7.7 thou/uL (1.40-6.50); %Basophils 1.4 % (0.0-1.0); %Eosinophils 1.2 % (0.0-10.0); %Lymphocytes 12.9 % (21.0-51.0); %Monocytes 9.3 % (0.0-10.0); %Neutrophils 75.2 % (42.0-75.0); Hemoglobin 8.5 g/dL (14.0-18.0); Mean Corpuscular HGB CONC 30.4 g/dL (32.0-36.0); Mean Corpuscular Hemoglobin 28.2 pg (27.0-31.0); Mean Corpuscular Volume 92.7 fL (78.0-98.0); Mean Platelet Volume 8.4 fL (7.4-10.4); Platelet Count 457 thou/uL (130-400); RBC Distribution Width 14.3 % (11.5-14.5); Red Blood Cell (RBC) Count 3.02 mill/uL (4.70-6.10); White Blood Cell (WBC) Count 10.2 thou/uL (4.8-10.8)
[2020-03-20 05:49] LABS: ALT (SGPT) 25 U/L (8-55); AST (SGOT) 36 U/L (5-34); Albumin 4.4 g/dL (3.5-5.0); Alkaline Phosphatase 185 U/L (40-110); Anion Gap 27 mmol/L (10-20); BUN (Urea Nitrogen) 125 mg/dL (8.9-20.6); Bilirubin, Total 0.5 mg/dL (0.2-1.2); Calc. Creatinine Clearance 0 mL/min (70-130); Carbon Dioxide 16 mmol/L (22-29); Chloride 104 mmol/L (98-107); Estimated GFR-MDRD 4; Globulin 4.5 g/dL (2.4-3.5); Glucose 137 mg/dL (70-105); Potassium 6.4 mmol/L (3.5-5.1); Protein, Total 8.9 g/dL (6.0-8.3); Sodium 141 mmol/L (136-145)
[2020-03-20 06:16] LABS: CKMB 7.9 ng/mL (0-6.6)
--- NOTE | 2020-03-20 08:25 | RAD ---
PORTABLE CHEST 1 VIEW: DATE: 03/20/2020. TIME: 5:00 AM. HISTORY: Nausea and vomiting. The patient is on dialysis. COMPARISON: 03/09/2020. FINDINGS: A prominent heart size is again seen. There is pulmonary vascular congestion with bilateral pleural effusions. No pneumothoraces are identified. POS: MZA
[2020-03-20] MEDS ORDERED: Epoetin (ESRD) 20,000 UNITS/ML SC SCH (09:15)
[2020-03-20] MEDS ORDERED: EPOETIN ALFA-EPBX (ESRD) 4,000 UNIT/ML VIAL SC SCH (09:15)
--- NOTE | 2020-03-20 09:45 | PRG ---
DATE OF SERVICE: 03/20/2020 SUBJECTIVE: Mr. Barnett is a 34-year-old male with known history of ESRD, presents to the ER for acute shortness of breath. He was also noted to be hyperkalemic. The patient is unable to pursue outpatient dialysis due to financial reasons. We were consulted for an emergent hemodialysis. He is undergoing hemodialysis. I am doing a 4-hour treatment with using a 2.0 potassium bath. He is already feeling better with the dialysis. OBJECTIVE: VITAL SIGNS: Blood pressure is 144/88, heart rate is 94, O2 saturation 84% on room air, 95% on 3 L. GENERAL: He is noted to be awake, alert, comfortable, not in overt distress. SKIN: Adequate turgor. HEENT: He has slightly pale conjunctivae. Anicteric sclerae. No neck mass. No carotid bruits. No JVD. CHEST: No deformities. LUNGS: Harsh breath sounds. HEART: Normal sinus rhythm. No murmur. No gallops. No rubs. ABDOMEN: Globular, soft, and nontender. No masses. EXTREMITIES: Positive for edema. No deformities. MEDICATIONS: Medications of March 20, 2020; 1. Calcium acetate 667 mg 2 tablets t.i.d. with meals. 2. Calcitriol 0.25 mcg tablet daily. 3. Amlodipine 10 mg daily. ASSESSMENT AND PLAN: 1. Congestive heart failure. We will do emergent hemodialysis with fluid removal. Attempting 5 L fluid removal with dialysis. 2. End-stage renal disease-emergent hemodialysis today. Fluid removal as tolerated, using 2.0 bath due to the hyperkalemia. I did instruct the patient to have his call me. The patient unfortunately is not able to pursue outpatient hemodialysis due to financial reasons. 3. Anemia. We will give Epogen 7500 units subcu q.week. In addition, start ferrous sulfate 325 mg p.o. t.i.d. 4. The patient has been instructed to take Kayexalate in the past. Unclear if he is compliant with this. Job ID: [id number]
== END 2020-03-20 14:05 | disposition home or self-care (01) ==
LOC: ERS 05:05
DX: E87.70 Fluid overload, unspecified (principal); E87.8 Other disorders of electrolyte and fluid balance, not elsewhere classified; R09.02 Hypoxemia; I10 Essential (primary) hypertension; E11.9 Type 2 diabetes mellitus without complications; Z79.899 Other long term (current) drug therapy
CPT/HCPCS: 71045; 80053; 82553; 83880; 84484; 85025; 90935; 93005; G0257; Q5105

== ENCOUNTER 2020-03-28 08:19 | Emergency (ER) | payer MEDICAID, SELFPAY ==
[2020-03-28 09:12] LABS: ALT (SGPT) 22 U/L (8-55); AST (SGOT) 25 U/L (5-34); Albumin 4.2 g/dL (3.5-5.0); Alkaline Phosphatase 153 U/L (40-110); Anion Gap 24 mmol/L (10-20); BUN (Urea Nitrogen) 100 mg/dL (8.9-20.6); Bilirubin, Total 0.4 mg/dL (0.2-1.2); Calc. Creatinine Clearance 0 mL/min (70-130); Calcium 7.5 mg/dL (7.8-10.44); Carbon Dioxide 21 mmol/L (22-29); Chloride 101 mmol/L (98-107); Estimated GFR-MDRD 5; Globulin 4.1 g/dL (2.4-3.5); Glucose 110 mg/dL (70-105); Protein, Total 8.3 g/dL (6.0-8.3); Sodium 139 mmol/L (136-145)
[2020-03-28 09:29] LABS: Potassium 6.6 mmol/L (3.5-5.1)
[2020-03-28 09:32] LABS: #Basophils 0.1 thou/uL (0.0-0.2); #Eosinphils 0.3 thou/uL (0.0-0.7); #Lymphocytes 1.6 thou/uL (1.20-3.40); #Monocytes 0.7 thou/uL (0.11-0.59); #Neutrophils 6.8 thou/uL (1.40-6.50); %Basophils 1.5 % (0.0-1.0); %Lymphocytes 16.8 % (21.0-51.0); %Monocytes 7.4 % (0.0-10.0); %Neutrophils 71.5 % (42.0-75.0); Hemoglobin 9.1 g/dL (14.0-18.0); Mean Corpuscular HGB CONC 32.4 g/dL (32.0-36.0); Mean Corpuscular Hemoglobin 30.2 pg (27.0-31.0); Mean Corpuscular Volume 93.3 fL (78.0-98.0); Mean Platelet Volume 8.4 fL (7.4-10.4); Platelet Count 438 thou/uL (130-400); RBC Distribution Width 13.6 % (11.5-14.5); Red Blood Cell (RBC) Count 3.02 mill/uL (4.70-6.10); White Blood Cell (WBC) Count 9.5 thou/uL (4.8-10.8)
[2020-03-28 11:09] LABS: HBSAB Concentration 2.51 mIU/mL; HBSAg Index 0.12 S/CO (0-0.99); Hep B Core Total Ab Non-Reactive (NonReactive); Hep B Core Total Index 0.06 S/CO (0-0.79); Hep B Surf AB Non-Reactive (NonReactive); Hep B Surf Ag Non-Reactive S/CO (NonReactive); Hep C IgG Ab Non-Reactive (NonReactive); Hep C Index 0.16 S/CO (0-0.79)
--- NOTE | 2020-03-29 15:52 | EKG ---
Test Reason : Blood Pressure : / mmHG Vent. Rate : 091 BPM Atrial Rate : 091 BPM P-R Int : 170 ms QRS Dur : 092 ms QT Int : 382 ms P-R-T Axes : 026 080 043 degrees QTc Int : 469 ms Normal sinus rhythm Normal ECG Confirmed by GABRIELLA ALMAGUER DO ([id number]), supervising editor news reel NANDINI CAGLE ([id number]) on 03/29/2020 3:51:35 PM Referred By: Confirmed By:GABRIELLA ALMAGUER DO
== END 2020-03-28 17:27 | disposition home or self-care (01) ==
LOC: ERS 08:19
DX: I12.0 Hypertensive chronic kidney disease with stage 5 chronic kidney disease or end stage renal disease (principal); E11.22 Type 2 diabetes mellitus with diabetic chronic kidney disease; N18.6 End stage renal disease; E87.5 Hyperkalemia; Z99.2 Dependence on renal dialysis; Z79.899 Other long term (current) drug therapy
CPT/HCPCS: 36415; 80053; 85025; 86704; 86706; 86803; 87340; 90935; 93005; G0257

== ENCOUNTER 2020-04-11 08:10 | Observation (INO) | payer MEDICAID, SELFPAY ==
--- NOTE | 2020-04-11 12:26 | RAD ---
EXAM: CHEST ONE VIEW HISTORY: Patient in need of dialysis. COMPARISON: 04/05/2012 FINDINGS: Cardiac silhouette is magnified by projection. There has been improvement in pulmonary vascular conge stion. Mild interstitial and patchy parenchymal densities at each lung base are present but have also improved compared to the prior study. Small bilateral pleural effusions are identified. No other interval change. IMPRESSION: Improvement in pulmonary vascular congestion as well as improvement in the pleural-parenchymal densit ies at each lung base likely related to improvement in bilateral pleural effusions and associated atelectasis.
[2020-04-11 12:59] LABS: #Basophils 0.2 thou/uL (0.0-0.2); #Eosinphils 0.2 thou/uL (0.0-0.7); #Lymphocytes 1.5 thou/uL (1.20-3.40); #Monocytes 0.5 thou/uL (0.11-0.59); #Neutrophils 4.5 thou/uL (1.40-6.50); %Basophils 2.2 % (0.0-1.0); %Eosinophils 2.6 % (0.0-10.0); %Lymphocytes 22.1 % (21.0-51.0); %Monocytes 7.4 % (0.0-10.0); %Neutrophils 65.6 % (42.0-75.0); Hemoglobin 7.9 g/dL (14.0-18.0); Mean Corpuscular HGB CONC 32.5 g/dL (32.0-36.0); Mean Corpuscular Hemoglobin 29.6 pg (27.0-31.0); Mean Platelet Volume 8.1 fL (7.4-10.4); Platelet Count 394 thou/uL (130-400); RBC Distribution Width 12.8 % (11.5-14.5); Red Blood Cell (RBC) Count 2.68 mill/uL (4.70-6.10); White Blood Cell (WBC) Count 6.9 thou/uL (4.8-10.8)
[2020-04-11 13:23] LABS: ALT (SGPT) 19 U/L (8-55); AST (SGOT) 18 U/L (5-34); Alkaline Phosphatase 117 U/L (40-110); Anion Gap 22 mmol/L (10-20); BUN (Urea Nitrogen) 102 mg/dL (8.9-20.6); Bilirubin, Total 0.4 mg/dL (0.2-1.2); CK (CPK) 137 U/L (30-200); Calc. Creatinine Clearance 0 mL/min (70-130); Calcium 7.6 mg/dL (7.8-10.44); Carbon Dioxide 19 mmol/L (22-29); Chloride 103 mmol/L (98-107); Estimated GFR-MDRD 5; Globulin 3.9 g/dL (2.4-3.5); Glucose 96 mg/dL (70-105); Potassium 6.3 mmol/L (3.5-5.1); Protein, Total 7.9 g/dL (6.0-8.3); Sodium 138 mmol/L (136-145)
[2020-04-11] MEDS ORDERED: Activase 2 MG VIAL CATH SCH (14:43)
[2020-04-11] MEDS ORDERED: Sterile Water 10 ML VIAL IVP SCH (14:43)
--- NOTE | 2020-04-11 17:17 | SPC ---
PROCEDURE: [facility] [place] PROVIDED CLINICAL HISTORY: Nonfunctioning right upper chest and the arterial venous dialysis fistula. COMPARISON: None TECHNIQUE: After informed consent was obtained, the patient was placed on the angiography table in the supine po sition. Limited sonographic evaluation of the right upper extremity arteriovenous dialysis fistula was performed which demonstrated patency of the fistula on sonographic evaluation. The right upper extremity was meticulously prepped and draped in usual sterile fashion. Skin and subc utaneous tissues were infiltrated with buffered 1% lidocaine for local anesthesia at the intended puncture site. The right upper extremity arteriovenous dialysis fistula was accessed at the level of the proximal forearm utilizing micropuncture technique, and a 4 Belarusian introducer sheath was placed directed in the arterial direction. A fistulogram and venogram to the SVC were performed. Significant vasospasm was seen at the access site. However, the spasm eventually resolved, and there is brisk flow and washout seen throughout the left upper extremity arteriovenous dialysis fistula with patent venous outflow via the cephalic and basilic veins. Central veins are patent. Multiple attempts at refluxing the arteriovenous anastomosis were unsuccessful. A blood pressure cuff was applied to the right arm and inflated to above systolic blood pressure, but again, the arteriovenous anastomosis was unable to be refluxed. Dr. Seay was present at this time. Given diffi culty in refluxing the arterial venous anastomosis and brisk flow throughout the fistula with good washout, additional imaging was not requested by Dr. Seay. The introducer sheath was removed, and h emostasis was achieved with direct pressure. Dry sterile dressing was placed. The patient tolerated the procedure well and without immediate complication. IMPRESSION: 1. Patent right upper extremity arteriovenous dialysis fistula and venous outflow to the level of the SVC. 2. Unsuccessful attempt at refluxing the arteriovenous anastomosis. However, there is brisk flow thro ughout the fistula with adequate washout. Additional attempts at refluxing the arterial venous anastomosis were not performed given the brisk flow and thrill within the fistula. Dr. Seay was pre sent at this time.
[2020-04-11] MEDS ORDERED: EPOETIN ALFA-EPBX (ESRD) 4,000 UNIT/ML VIAL SC SCH (17:45)
--- NOTE | 2020-04-11 18:20 | PDOC.HHP ---
Hospitalist HPI - History of Present Illness Time for dialysis treatment History of Present Illness: Patient presents to the ED with no complaints other than it is time for his dialysis treatment. He exclusively receives dialysis in the ER approximately every 8 days, his last treatment was 04/05/2020. Denies swelling, SOB, chest pain , heart palpitations. ED Course: Patient had lab work and chest xray completed in the ER and then went for a fistulogram due to malfunctioning fistula prior to being admitted to telemetry. Hospitalist ROS - Review of Systems Constitutional: denies: fever, chills, sweats, weakness, malaise, other Eyes: denies: pain, vision change, conjunctivae inflammation, eyelid inflammation, redness, other ENT: denies: ear pain, ear discharge, nose pain, nose discharge, nose congestion , mouth pain, mouth swelling, throat pain, throat swelling, other Respiratory: denies: cough, dry, shortness of breath, hemoptysis, SOB with excertion, pleuritic pain, sputum, wheezing, other Cardiovascular: denies: chest pain, palpitations, orthopnea, paroxysmal noc. dyspnea, edema, light headedness, other Gastrointestinal: denies: nausea, vomiting, abdominal pain, diarrhea, constipation, melena, hematochezia, other Genitourinary: denies: dysuria, frequency, incontinence, hematuria, retention, other Musculoskeletal: denies: neck pain, shoulder pain, arm pain, back pain, hand pain, leg pain, foot pain, other Skin: denies: rash, lesions, cristian, bruising, other Neurological: denies: weakness, numbness, incoordination, change in speech, confusion, seizures, other - Medication Medications: No known drug allergies. Patient does not remember home medications at this time, verified with ER records FELIPA Go Macie calcium acetate oral tablet : Strength - 667 mg : ORAL Patient Dose: 2 cap(s) Oral 3 times a day. calcitriol oral capsule : Strength - 0.25 mcg : ORAL Patient Dose: 0.25 mg Oral once a day. amLODIPine tablet : Strength - 10 mg : ORAL Patient Dose: 10 mg Oral once a day. Hospitalist History - Past Medical History Source: patient Cardiac: reports: HTN Pulmonary: reports: no pertinent history BOTTOM SANDER: reports: no pertinent history Gastrointestinal: reports: no pertinent history Hepatobiliary: reports: no pertinent history Psych: reports: no pertinent history Musculoskeletal: reports: no pertinent history Rheumatologic: reports: no pertinent history Infectious Disease: reports: no pertinent history ENT: reports: no pertinent history Renal/: reports: Chronic renal failure (ESRD on dialysis) Endocrine: reports: no pertinent history Dermatology: reports: no pertinent history - Past Surgical History Past Surgical History: reports: Other - Family History Family History: reports: no pertinent history - Social History Smoking Status: Never smoker Alcohol: reports: None Drugs: reports: none Living Situation: With Family Activity level: independent ambulation - Exam General Appearance: NAD, awake alert Eye: PERRL, anicteric sclera ENT: normocephalic atraumatic, moist mucosa Neck: supple, symmetric, no lymphadenopathy Heart: RRR, no murmur, no gallops, no rubs, normal peripheral pulses Respiratory: CTAB, no wheezes, no rales, no ronchi Gastrointestinal: soft, non-tender, non-distended, normal bowel sounds Extremities: no cyanosis, no edema Musculoskeletal: normal tone, normal strength Psychiatric: normal affect, normal behavior Hospitalist Results - Labs Result Diagrams: 04/12/20 04:21 04/12/20 04:21 Lab results: WBC 6.9 thou/uL (4.8-10.8) 04/11/20 12:28 Hgb 7.9 g/dL (14.0-18.0) L 04/11/20 12:28 Hct 24.4 % (42.0-52.0) L 04/11/20 12:28 MCV 91.0 fL (78.0-98.0) 04/11/20 12:28 Plt Count 394 thou/uL (130-400) 04/11/20 12:28 Neutrophils % 65.6 % (42.0-75.0) 04/11/20 12:28 Sodium 138 mmol/L (136-145) 04/11/20 12:28 Potassium 6.3 mmol/L (3.5-5.1) H 04/11/20 12:28 Chloride 103 mmol/L (98-107) 04/11/20 12:28 Carbon Dioxide 19 mmol/L (22-29) L 04/11/20 12:28 BUN 102 mg/dL (8.9-20.6) H 04/11/20 12:28 Creatinine 11.59 mg/dL (0.7-1.3) H 04/11/20 12:28 Glucose 96 mg/dL (70-105) 04/11/20 12:28 Calcium 7.6 mg/dL (7.8-10.44) L 04/11/20 12:28 Total Bilirubin 0.4 mg/dL (0.2-1.2) 04/11/20 12:28 AST 18 U/L (5-34) 04/11/20 12:28 ALT 19 U/L (8-55) 04/11/20 12:28 Alkaline Phosphatase 117 U/L (40-110) H 04/11/20 12:28 Creatine Kinase 137 U/L (30-200) 04/11/20 12:28 Troponin I 0.010 ng/mL (< 0.028) 04/11/20 12:28 B-Natriuretic Peptide 3463.0 pg/mL (0-100) H 04/11/20 12:28 Serum Total Protein 7.9 g/dL (6.0-8.3) 04/11/20 12:28 Albumin 4.0 g/dL (3.5-5.0) 04/11/20 12:28 Laboratory Tests 04/11/20 04/11/20 12:28 12:28 Troponin I 0.010 B-Natriuretic Peptide 3463.0 H - EKG Interpretation EKG: SR 68 pulse, no ectopic beats - Radiology Interpretation Chest x-ray Status: report reviewed by me Additional Comment: Improvement in pulmonary vascular congestion as well as improvement in the pleural-parenchymal densities at each lung base likely related to improvement in bilateral pleural effusions and associated atelectasis. Hospitalist H&P A/P - Problem (1) Chronic renal failure, stage 5 Code(s): N18.5 - CHRONIC KIDNEY DISEASE, STAGE 5 Status: Chronic (2) Hyperkalemia Code(s): E87.5 - HYPERKALEMIA Status: Acute (3) HTN (hypertension) Code(s): I10 - ESSENTIAL (PRIMARY) HYPERTENSION Status: Chronic Qualifiers: Hypertension type: essential hypertension Qualified Code(s): I10 - Essential (primary) hypertension - Plan Plan: Admit to telemetry unit Nephrology consultation- Dr. Farris already aware Dialysis tonight and then again in morning for electrolyte correction BMP, CBC, and Mg lab levels ordered in am Continue home medications once reconciled HTN- stable GI prophylaxis Expected discharge tomorrow after dialysis if access continues to work well and does not need further intervention Patient wishes to be a full code
[2020-04-12 02:23] VITALS: BMI 21.9
[2020-04-12 04:30] LABS: #Basophils 0.2 thou/uL (0.0-0.2); #Eosinphils 0.2 thou/uL (0.0-0.7); #Lymphocytes 1.7 thou/uL (1.20-3.40); #Monocytes 0.7 thou/uL (0.11-0.59); #Neutrophils 4.1 thou/uL (1.40-6.50); %Basophils 2.3 % (0.0-1.0); %Eosinophils 3.1 % (0.0-10.0); %Lymphocytes 24.8 % (21.0-51.0); %Monocytes 10.2 % (0.0-10.0); %Neutrophils 59.6 % (42.0-75.0); Hemoglobin 9.4 g/dL (14.0-18.0); Mean Corpuscular HGB CONC 33.4 g/dL (32.0-36.0); Mean Corpuscular Hemoglobin 30.1 pg (27.0-31.0); Mean Corpuscular Volume 90.3 fL (78.0-98.0); Mean Platelet Volume 8.2 fL (7.4-10.4); Platelet Count 423 thou/uL (130-400); RBC Distribution Width 12.8 % (11.5-14.5); Red Blood Cell (RBC) Count 3.13 mill/uL (4.70-6.10); White Blood Cell (WBC) Count 6.9 thou/uL (4.8-10.8)
[2020-04-12 04:59] LABS: Anion Gap 16 mmol/L (10-20); BUN (Urea Nitrogen) 53 mg/dL (8.9-20.6); Calc. Creatinine Clearance 10 mL/min (70-130); Calcium 8.3 mg/dL (7.8-10.44); Carbon Dioxide 27 mmol/L (22-29); Chloride 101 mmol/L (98-107); Estimated GFR-MDRD 8; Glucose 95 mg/dL (70-105); Magnesium 2.2 mg/dL (1.6-2.6); Potassium 4.6 mmol/L (3.5-5.1); Sodium 139 mmol/L (136-145)
--- NOTE | 2020-04-12 08:32 | PRG ---
DATE OF SERVICE: 04/12/2020 SUBJECTIVE: Mr. Barnett is a 34-year-old male with ESRD and was admitted due to hyperkalemia. He underwent hemodialysis yesterday. We attempted initially to use his AV fistula, which was not successful. He underwent an AV fistulogram and access is noted to be patent. For that reason, he was recannulated and the stent was successful. He underwent a 3-hour hemodialysis. Our plan is to do a 4-hour hemodialysis with this patient. Unfortunately, this patient is not able to obtain outpatient dialysis treatment. No new complaints today. No chest pain or shortness of breath. OBJECTIVE: VITAL SIGNS: Blood pressure 130/86, heart rate 76, respiratory rate 18, temperature 98.2, O2 saturation 96%. GENERAL: Noted to be awake, alert, comfortable, not in distress. SKIN: Adequate turgor. HEENT: Slightly pale conjunctivae. Anicteric sclerae. NECK: No neck mass. No carotid bruits. No JVD. CHEST: No deformities. LUNGS: Clear breath sounds. HEART: Normal sinus rhythm. No murmur. No gallops. No rubs. ABDOMEN: Globular, soft, nontender. No masses. EXTREMITIES: No edema. No deformities. MEDICATIONS: Medications of April 12, 2020, reviewed. LABORATORY DATA: Laboratories of April 12, 2020; white count 6.9, hemoglobin 9.4. Sodium 139, potassium 4.6, chloride 101, carbon dioxide 27, BUN 53, creatinine 7.84, glucose 95, calcium 8.3. ASSESSMENT AND PLAN: 1. End-stage renal disease-hemodialysis x4 hours today. Fluid removal as tolerated. 2. Anemia, on weekly Epogen. 3. Hyperkalemia, resolved after dialysis. 4. Hypertension. Blood pressure is in good control at the present time. RECOMMENDATIONS: My recommendation, we continue his home medications upon discharge. Job ID: [id number]
[2020-04-12 15:54] VITALS: TEMP 97.9
--- NOTE | 2020-04-12 16:39 | SPC ---
PROCEDURE[place] [facility] [place] PROVIDED CLINICAL HISTORY: Difficulty in performing dialysis and inadequate flow rates at dialysis. COMPARISON: Fistulogram obtained on 04/11/2020 TECHNIQUE: After informed consent was obtained, the patient was placed on the angiography table in supine positi on. The right upper extremity was meticulously prepped and draped in the usual sterile fashion. Skin and subcutaneous tissues were infiltrated with buffered 1% lidocaine for local anesthesia at the intended puncture site. The fistula was accessed utilizing micropuncture technique, and a 4 Macanese introducer sheath was placed directed in the arterial direction. Access was performed at the level of the mid fistula on today's examination in attempt to place the distal portion of the catheter closer to the level of the arterial inflow and more proximal to the level of the prominent collateral at the level of the proximal forearm. A fistulogram was performed. Manual compression was applied to the venous outflow, and contrast was i njected refluxing the arterial venous anastomosis. There is irregularity and suggested narrowing involving the most proximal venous outflow just distal to the arteriovenous anastomosis. The arteriov enous anastomosis is patent, and there is brisk flow and washout within the fistula. Given irregularity and low flow rates at dialysis, the introducer sheath was exchanged over a 0.035 inch Be ntson guidewire. However, due to close proximity to the small caliber artery, this access was not suitable for intervention. As result, the fistula at the level of the mid forearm was accessed and a 4 Macanese introducer sheath was placed directed in the arterial direction. The sheath was exchanged over a 0.035 inch Ometricsson guidewire for a 5 Macanese vascular sheath. Approximately 1000 units of hepa rin was administered intravenously prior to angioplasty. Fistulogram was performed. A 0.035 inch Glidewire was then placed and manipulated into the radial art james. A 4 mm x 4 cm angioplasty balloon was placed over the guidewire, and angioplasty was performed the level of the area of irregularity. No waist is seen within the angioplasty balloon, the angioplas ty balloon did achieve full profile. Follow-up fistulogram suggest mild improvement in area of irregularity and narrowing, there is a persistent area of narrowing near the level of the arterioveno us anastomosis, given the size of the parent artery, angioplasty and this region was not performed given risk of injury to the artery. Follow-up fistulogram with Berenstein catheter in place near the level of the arteriovenous anastomosis demonstrates prominent collateral vein which may potentially be attributed to low flow within the fistula. Collateral vein is seen at the level of the junction of the middle distal one third diaphysis of the radius. The 5 Macanese vascular catheter was removed, and hemostasis was achieved with direct pressure. Dry abril ssing was placed at puncture site. The patient tolerated the procedure well without immediate complication. Fluoroscopy: Time-7.9 minutes Dose-919 mGy centimeter squared IMPRESSION: 1. Irregularity of the proximal venous outflow of the right upper extremity arteriovenous dialysis fi stula. SALES ARCHITECT was performed to 4 mm in diameter without waist seen within the angioplasty balloon. While the irregularity persists, luminal diameter does appear mildly improved except for focal area o f greater degree of narrowing near the level of the arteriovenous anastomosis. Angioplasty of this focal narrowing was not performed due to smaller size of the parent artery. There is brisk flow and w ashout of contrast with difficulty in refluxing the arteriovenous anastomosis suggesting good inflow of the fistula. Difficulty in dialysis related to low flow rates could potentially be related to prominent collateral vein as described above. Findings were discussed with Dr. Seay at this time.
--- NOTE | 2020-04-12 16:47 | CON ---
DATE OF CONSULTATION: Mauro Barnett is a 34-year-old male, undocumented immigrant, with end-stage renal disease, whom I initially saw in October 2019 and placed a hemodialysis catheter. I then placed a fistula on 11/01/2019, right Nina. On 02/07/2020, he underwent removal of his IJ hemodialysis catheter. He has been coming in every few weeks for dialysis. He has been successfully dialyzed using this fistula since January. He reported this admission in the emergency room and was sent for dialysis, but they had trouble accessing the fistula and said it was thrombosed. Dr. Jair Castle performed a fistulogram, noting a large collateral and he had such brisk arterial inflow that he could not reflux to visualize the artery considering the collateral. The patient went on to have dialysis and dialysis techs report sluggish flow, diminished flow, but not optimal function. Dr. Jair Castle returned to repeat the fistulogram today accessing the Nina fistula far more distal beyond the large collateral mid fistula and I was able to evaluate the arterial inflow, which looked good. The patient has a left antecubital IV, which I have removed. I have written orders to avoid IV access above the wrist. I have talked to Dr. Rip Dean regarding our embolization of this large collateral, which may be interfering with flow and await his reply. Currently, I do not think that the patient needs a dialysis catheter or any surgical intervention at this point as his arterial inflow looks good. The patient's right arm fistula has a good thrill and bruit and has a good pulsation when obstructive and that resolves when released. Await Dr. Rip Dean's evaluation. Job ID: [id number]
--- NOTE | 2020-04-12 18:38 | PRG ---
DATE OF SERVICE: 04/12/2020 I have discussed the patient's arteriograms with Dr. Dean. The patient has been able to be dialyzed. Dr. Castle did dilate the arterial inflow. At this point, I do not think any further intervention is needed for his fistula. I think he can use his fistula for dialysis. He can be discharged home tonight if medically he is ready. Otherwise, they can access his fistula in this hospitalization and future hospitalizations, and I can be reconsulted if there are any access problems. Job ID: [id number]
[2020-04-12 18:49] VITALS: BP 114/71
[2020-04-13] MEDS ORDERED: Calcium Acetate 667 MG CAP PO SCH (08:00)
[2020-04-13] MEDS ORDERED: Amlodipine 10 MG TAB PO SCH (09:00)
[2020-04-13] MEDS ORDERED: Calcitriol 0.25 MCG CAP PO SCH (09:00)
--- NOTE | 2020-04-13 12:21 | DIS ---
DATE OF ADMISSION: 04/11/2020 DATE OF DISCHARGE: 04/12/2020 DISCHARGE DIAGNOSES: 1. End-stage renal disease, on dialysis. 2. AV fistula malfunction. 3. Hyperkalemia. 4. Hypertension. HISTORY OF PRESENT ILLNESS: This patient is a 34-year-old male with end-stage renal disease on dialysis, who does not have ability to get a confirmed dialysis chair as an outpatient, who returns to the ER for dialysis. He presented to the ER on this occasion, feeling as though he would potentially need dialysis. At that time, his potassium was 6.3, BNP was 3463. The patient was sent directly to Dialysis on referral from Nephrology. However, once there, the patient had problems with his fistula and they were not able to dialyze him adequately. They subsequently sent the patient for a fistulogram for AV fistula study, which apparently was normal. He was then returned back to Dialysis, where he fully received dialysis and then was formally placed in the hospital for observation. HOSPITAL COURSE: Following morning, his potassium was down to 6.3. He underwent a second round of dialysis and apparently noted poor flow. He was therefore sent back for another fistula study. Dr. Seay was consulted and participated in the evaluation and felt that the patient actually had pretty good arterial flow and there might have been arterial collateral collateral and there was some consideration given to possible ligation. However, in consultation with Dr. Dean, it was decided that this was not going to be indicated and therefore, the patient could be discharged for outpatient dialysis followup. PHYSICAL EXAMINATION: VITAL SIGNS: On the day of discharge, temperature was 97.9, pulse 82, respirations 14, O2 saturation 99% on room air. HEART: Regular. LUNGS: Clear. ABDOMEN: Benign. EXTREMITIES: No edema. DISPOSITION: The patient is discharged home. DISCHARGE MEDICATIONS: He will be on: 1. Amlodipine 10 mg daily. 2. Rocaltrol 0.25 mcg daily. 3. PhosLo 2 caplets t.i.d. with meals. FOLLOWUP: He is to follow up with Dr. Nava in [place] and Dr. Farris. He can return to the hospital at anytime he has the need to do so. Job ID: [id number] [facility]
--- NOTE | 2020-04-13 16:09 | SPC ---
PROCEDURE: [facility] [place] INTRO CATH DIALY CIRC/AV S PROVIDED CLINICAL HISTORY: Difficulty in performing dialysis and inadequate flow rates at dialysis. COMPARISON: Fistulogram obtained on 04/11/2020 TECHNIQUE: After informed consent was obtained, the patient was placed on the angiography table in supine positi on. The right upper extremity was meticulously prepped and draped in the usual sterile fashion. Skin and subcutaneous tissues were infiltrated with buffered 1% lidocaine for local anesthesia at the intended puncture site. The fistula was accessed utilizing micropuncture technique, and a 4 Peruvian introducer sheath was placed directed in the arterial direction. Access was performed at the level of the mid fistula on today's examination in attempt to place the distal portion of the catheter closer to the level of the arterial inflow and more proximal to the level of the prominent collateral at the level of the proximal forearm. A fistulogram was performed. Manual compression was applied to the venous outflow, and contrast was i njected refluxing the arterial venous anastomosis. There is irregularity and suggested narrowing involving the most proximal venous outflow just distal to the arteriovenous anastomosis. The arteriov enous anastomosis is patent, and there is brisk flow and washout within the fistula. Given irregularity and low flow rates at dialysis, the introducer sheath was exchanged over a 0.035 inch Be ntson guidewire. However, due to close proximity to the small caliber artery, this access was not suitable for intervention. As result, the fistula at the level of the mid forearm was accessed and a 4 Peruvian introducer sheath was placed directed in the arterial direction. The sheath was exchanged over a 0.035 inch Echovoxson guidewire for a 5 Peruvian vascular sheath. Approximately 1000 units of hepa rin was administered intravenously prior to angioplasty. Fistulogram was performed. A 0.035 inch Glidewire was then placed and manipulated into the radial art james. A 4 mm x 4 cm angioplasty balloon was placed over the guidewire, and angioplasty was performed the level of the area of irregularity. No waist is seen within the angioplasty balloon, the angioplas ty balloon did achieve full profile. Follow-up fistulogram suggest mild improvement in area of irregularity and narrowing, there is a persistent area of narrowing near the level of the arterioveno us anastomosis, given the size of the parent artery, angioplasty and this region was not performed given risk of injury to the artery. Follow-up fistulogram with Berenstein catheter in place near the level of the arteriovenous anastomosis demonstrates prominent collateral vein which may potentially be attributed to low flow within the fistula. Collateral vein is seen at the level of the junction of the middle distal one third diaphysis of the radius. The 5 Peruvian vascular catheter was removed, and hemostasis was achieved with direct pressure. Dry abril ssing was placed at puncture site. The patient tolerated the procedure well without immediate complication. Fluoroscopy: Time-7.9 minutes Dose-919 mGy centimeter squared IMPRESSION: 1. Irregularity of the proximal venous outflow of the right upper extremity arteriovenous dialysis fi stula. REHABILITATOR was performed to 4 mm in diameter without waist seen within the angioplasty balloon. While the irregularity persists, luminal diameter does appear mildly improved except for focal area o f greater degree of narrowing near the level of the arteriovenous anastomosis. Angioplasty of this focal narrowing was not performed due to smaller size of the closely adjacent parent artery. There is brisk flow and washout of contrast with difficulty in refluxing the arteriovenous anastomosis suggesting good inflow of the fistula. Difficulty in dialysis related to low flow rates could potenti ally be related to prominent collateral vein as described above. Findings were discussed with Dr. Seay at this time. Transcribed Date/Time: 04/13/2020 4:08 PM
--- NOTE | 2020-04-15 12:56 | EKG ---
Test Reason : Blood Pressure : / mmHG Vent. Rate : 068 BPM Atrial Rate : 068 BPM P-R Int : 164 ms QRS Dur : 092 ms QT Int : 448 ms P-R-T Axes : 029 073 042 degrees QTc Int : 476 ms Normal sinus rhythm Normal ECG Confirmed by MEHREEN POLK ([id number]), senior editor VIANEY VAZQUEZ ([id number]) on 04/15/2020 12:55:30 PM Referred By: Confirmed By:MEHREEN Barton
== END 2020-04-12 19:10 | disposition home or self-care (01) ==
LOC: ERS 08:10 → 2SE 14:12
PROVIDERS: ADMIT Internal Medicine; ATTEND Internal Medicine
PROC: B31H1ZZ Fluoroscopy of Right Upper Extremity Arteries using Low Osmolar Contrast (ICD-10-PCS; principal; 2020-04-12)
DX: I13.2 Hypertensive heart and chronic kidney disease with heart failure and with stage 5 chronic kidney disease, or end stage renal disease (principal); E11.22 Type 2 diabetes mellitus with diabetic chronic kidney disease; N18.6 End stage renal disease; I50.9 Heart failure, unspecified; D63.1 Anemia in chronic kidney disease; T82.868A Thrombosis due to vascular prosthetic devices, implants and grafts, initial encounter; E87.5 Hyperkalemia
CPT/HCPCS: 36415; 36416; 36901; 36902; 71045; 80048; 80053; 82550; 83735; 83880; 84484; 85025; 90935; 93005; C1725; G0257; G0378; J2997; Q5105

== ENCOUNTER 2020-04-25 06:14 | Emergency (ER) | payer MEDICAID, SELFPAY ==
[2020-04-25 06:45] LABS: #Basophils 0.1 thou/uL (0.0-0.2); #Eosinphils 0.3 thou/uL (0.0-0.7); #Lymphocytes 1.2 thou/uL (1.20-3.40); #Monocytes 0.8 thou/uL (0.11-0.59); #Neutrophils 7.1 thou/uL (1.40-6.50); %Basophils 1.3 % (0.0-1.0); %Eosinophils 2.7 % (0.0-10.0); %Lymphocytes 12.3 % (21.0-51.0); %Monocytes 8.8 % (0.0-10.0); Mean Corpuscular HGB CONC 33.3 g/dL (32.0-36.0); Mean Corpuscular Hemoglobin 29.8 pg (27.0-31.0); Mean Corpuscular Volume 89.5 fL (78.0-98.0); Mean Platelet Volume 8.8 fL (7.4-10.4); Platelet Count 290 thou/uL (130-400); RBC Distribution Width 13.2 % (11.5-14.5); Red Blood Cell (RBC) Count 2.69 mill/uL (4.70-6.10); White Blood Cell (WBC) Count 9.5 thou/uL (4.8-10.8)
[2020-04-25 07:02] LABS: Anion Gap 23 mmol/L (10-20); BUN (Urea Nitrogen) 124 mg/dL (8.9-20.6); Calc. Creatinine Clearance 0 mL/min (70-130); Calcium 7.6 mg/dL (7.8-10.44); Carbon Dioxide 19 mmol/L (22-29); Chloride 102 mmol/L (98-107); Estimated GFR-MDRD 4; Glucose 102 mg/dL (70-105); Potassium 6.3 mmol/L (3.5-5.1); Sodium 138 mmol/L (136-145)
--- NOTE | 2020-04-25 07:43 | RAD ---
EXAM: Single view of the chest HISTORY: Heaviness. Patient feels that he needs dialysis. COMPARISON: 04/11/2020 FINDINGS: Single view of the chest shows a normal sized cardiomediastinal silhouette. There may be angel btle airspace opacities in the bilateral lower lobes. The bones are unremarkable. IMPRESSION: Bilateral lower lobe atelectasis versus infiltrates
[2020-04-25] MEDS ORDERED: EPOETIN ALFA-EPBX (ESRD) 4,000 UNIT/ML VIAL IVP SCH (09:30)
[2020-04-25 09:57] LABS: HBSAg Index 0.14 S/CO (0-0.99); Hep B Surf Ag Non-Reactive S/CO (NonReactive)
--- NOTE | 2020-04-25 10:10 | PRG ---
DATE OF SERVICE: 04/25/2020 SUBJECTIVE: Mr. Barnett is a 34-year-old male with chronic renal failure/ ESRD and presents today complaining of shortness of breath. He feels that he has more edema. Chest x-ray showed bilateral lower lobe atelectasis versus CHF. He is undergoing hemodialysis today. His potassium was also noted to be elevated at 6.3. His BUN is 124 with a creatinine of 13.96. He will undergo a 4-hour hemodialysis today with fluid removal as tolerated. OBJECTIVE: VITAL SIGNS: Blood pressure 125/69, heart rate 73. GENERAL: Awake, alert, comfortable, not in overt distress. SKIN: Adequate turgor. HEENT: Pale conjunctivae. Anicteric sclerae. NECK: No neck mass. No carotid bruits. No JVD. CHEST: No deformities. LUNGS: Decreased breath sounds. HEART: Normal sinus rhythm. No murmur. No gallops. No rubs. ABDOMEN: Globular, soft nontender, no masses. EXTREMITIES: No edema, no deformities. LABORATORY DATA: Laboratories of April 25, 2020, showed potassium 6.3, chloride 102, carbon dioxide 19, BUN 124, creatinine 13.96, calcium 7.6. White count is 9.5, hemoglobin 8. ASSESSMENT/PLAN: 1. Anemia. Epogen 7500 units subcu every week. 2. End-stage renal disease/chronic renal failure. Hemodialysis x4 hours today. Fluid removal as tolerated. Unfortunately, patient is unable to obtain outpatient dialysis. He will be coming back on a p.r.n. basis. Job ID: [id number] [facility]
--- NOTE | 2020-04-29 14:39 | EKG ---
Test Reason : Blood Pressure : / mmHG Vent. Rate : 086 BPM Atrial Rate : 086 BPM P-R Int : 178 ms QRS Dur : 090 ms QT Int : 410 ms P-R-T Axes : 018 063 076 degrees QTc Int : 490 ms Normal sinus rhythm Possible Left atrial enlargement Prolonged QT Abnormal ECG Confirmed by CAROLINA ZEPEDA ([id number]), editor managing director VIANEY VAZQUEZ ([id number]) on 04/29/2020 2:39:33 PM Referred By: Confirmed By:CAROLINA ZEPEDA
== END 2020-04-25 13:30 | disposition home or self-care (01) ==
LOC: ERS 06:14
DX: I12.9 Hypertensive chronic kidney disease with stage 1 through stage 4 chronic kidney disease, or unspecified chronic kidney disease (principal); N18.9 Chronic kidney disease, unspecified; E10.22 Type 1 diabetes mellitus with diabetic chronic kidney disease; E87.5 Hyperkalemia; Z99.2 Dependence on renal dialysis; Z79.899 Other long term (current) drug therapy
CPT/HCPCS: 36415; 71045; 80048; 85025; 87340; 90935; 93005; 94760; G0257; Q5105

== ENCOUNTER 2020-05-02 07:31 | Emergency (ER) | payer MEDICAID ==
[2020-05-02 08:19] LABS: #Basophils 0.2 thou/uL (0.0-0.2); #Eosinphils 0.3 thou/uL (0.0-0.7); #Lymphocytes 1.5 thou/uL (1.20-3.40); #Monocytes 0.6 thou/uL (0.11-0.59); #Neutrophils 4.2 thou/uL (1.40-6.50); %Basophils 2.5 % (0.0-1.0); %Eosinophils 4.2 % (0.0-10.0); %Lymphocytes 22.6 % (21.0-51.0); %Monocytes 8.6 % (0.0-10.0); Hemoglobin 7.8 g/dL (14.0-18.0); Mean Corpuscular HGB CONC 32.8 g/dL (32.0-36.0); Mean Corpuscular Hemoglobin 29.9 pg (27.0-31.0); Mean Platelet Volume 7.7 fL (7.4-10.4); Platelet Count 378 thou/uL (130-400); RBC Distribution Width 13.2 % (11.5-14.5); Red Blood Cell (RBC) Count 2.62 mill/uL (4.70-6.10); White Blood Cell (WBC) Count 6.8 thou/uL (4.8-10.8)
[2020-05-02 08:32] LABS: ALT (SGPT) 16 U/L (8-55); AST (SGOT) 18 U/L (5-34); Alkaline Phosphatase 123 U/L (40-110); Anion Gap 20 mmol/L (10-20); BUN (Urea Nitrogen) 77 mg/dL (8.9-20.6); Bilirubin, Total 0.4 mg/dL (0.2-1.2); Calc. Creatinine Clearance 0 mL/min (70-130); Calcium 7.7 mg/dL (7.8-10.44); Carbon Dioxide 22 mmol/L (22-29); Chloride 104 mmol/L (98-107); Estimated GFR-MDRD 5; Globulin 3.8 g/dL (2.4-3.5); Glucose 135 mg/dL (70-105); Protein, Total 7.8 g/dL (6.0-8.3); Sodium 140 mmol/L (136-145)
[2020-05-02] MEDS ORDERED: EPOETIN ALFA-EPBX (ESRD) 4,000 UNIT/ML VIAL SC SCH (13:15)
--- NOTE | 2020-05-03 06:42 | PRG ---
DATE OF SERVICE: 05/02/2020 SUBJECTIVE: Mr. Barnett is a 34-year-old male with chronic renal failure/ESRD and presented to the ER requesting for dialysis. At that time, he was noted to be asymptomatic. However, lab work was done and it showed a potassium of 6.0. For that reason, we decided to do hemodialysis for 4 hours with him. He is currently undergoing hemodialysis and tolerating said treatment. The patient voices no other complaints. He denies any chest pain or shortness of breath. OBJECTIVE: VITAL SIGNS: Blood pressure 154/70, heart rate 70. GENERAL: Awake, alert, comfortable, not in distress. SKIN: Adequate turgor. HEENT: Slightly pale conjunctivae. Anicteric sclerae. No neck mass. No carotid bruits. No JVD. CHEST: No deformities. LUNGS: Clear breath sounds. HEART: Normal sinus rhythm. No murmurs. No gallops. No rubs. ABDOMEN: Globular, soft, nontender. No masses. EXTREMITIES: No edema. No deformities. LABORATORY DATA: Laboratories of May 02, 2020: White count 6.8, hemoglobin 7.8. Sodium 140, potassium 6, chloride 104, carbon dioxide 22, BUN 77, creatinine 11.89, glucose 135. LFTs normal. BNP is 3104.6. ASSESSMENT AND PLAN: 1. Hyperkalemia - emergent hemodialysis. 2. End-stage renal disease/chronic renal failure. Undergoing a 4-hour hemodialysis with a planned blood flow of about 300 to 350 mL/h. Tolerating said treatment. 3. The patient advised on a renal diet. He will try to comply with the low-potassium diet. 4. Anemia. Procrit 7500 units subcu now, then every week. 5. Agree with current management. The patient to be discharged after dialysis. ADDENDUM: Due to his financial situation, he is unable to obtain any outpatient hemodialysis. Job ID: [id number]
--- NOTE | 2020-05-06 17:33 | EKG ---
Test Reason : Blood Pressure : / mmHG Vent. Rate : 076 BPM Atrial Rate : 076 BPM P-R Int : 170 ms QRS Dur : 092 ms QT Int : 416 ms P-R-T Axes : 025 048 065 degrees QTc Int : 468 ms Normal sinus rhythm Normal ECG Confirmed by NURIS RIVAS, RAO Pinto ([id number]), editor continuity and script VIANEY VAZQUEZ ([id number]) on 05/06/2020 5:32:49 PM Referred By: Confirmed By:RAO LAWLER MD
== END 2020-05-02 15:12 | disposition home or self-care (01) ==
LOC: ERS 07:31
DX: N17.9 Acute kidney failure, unspecified (principal); I12.9 Hypertensive chronic kidney disease with stage 1 through stage 4 chronic kidney disease, or unspecified chronic kidney disease; N18.9 Chronic kidney disease, unspecified; E10.22 Type 1 diabetes mellitus with diabetic chronic kidney disease; E87.70 Fluid overload, unspecified; Z79.899 Other long term (current) drug therapy; Z99.2 Dependence on renal dialysis; Z91.19 Patient's noncompliance with other medical treatment and regimen
CPT/HCPCS: 36415; 80053; 83880; 85025; 90935; 93005; G0257; Q5105

== ENCOUNTER 2020-05-09 07:55 | Emergency (ER) | payer MEDICAID ==
[2020-05-09 08:23] LABS: #Basophils 0.1 thou/uL (0.0-0.2); #Eosinphils 0.3 thou/uL (0.0-0.7); #Lymphocytes 1.4 thou/uL (1.20-3.40); #Monocytes 0.6 thou/uL (0.11-0.59); #Neutrophils 5.1 thou/uL (1.40-6.50); %Eosinophils 4.1 % (0.0-10.0); %Lymphocytes 18.7 % (21.0-51.0); %Monocytes 7.9 % (0.0-10.0); %Neutrophils 67.4 % (42.0-75.0); Hemoglobin 8.8 g/dL (14.0-18.0); Mean Corpuscular Hemoglobin 29.3 pg (27.0-31.0); Mean Corpuscular Volume 91.5 fL (78.0-98.0); Mean Platelet Volume 7.5 fL (7.4-10.4); Platelet Count 442 thou/uL (130-400); RBC Distribution Width 13.6 % (11.5-14.5); White Blood Cell (WBC) Count 7.5 thou/uL (4.8-10.8)
--- NOTE | 2020-05-09 08:40 | RAD ---
PORTABLE CHEST: DATE: 05/09/2020. Provided CLINICAL HISTORY: Dyspnea. FINDINGS: Comparison 04/25/2020. The cardiac silhouette appears enlarged. Blunting of the left costophrenic an gle may reflect pleural fluid. No focal consolidation or pneumothorax apparent. Pulmonary vasculatu re appears within normal limits. IMPRESSION: Prominence of the cardiac silhouette and blunting of the left costophrenic angle. POS: BENJAMÍN
[2020-05-09 08:54] LABS: Albumin 4.3 g/dL (3.5-5.0)
[2020-05-09 08:55] LABS: Chloride 102 mmol/L (98-107); Potassium 6.1 mmol/L (3.5-5.1); Sodium 138 mmol/L (136-145)
[2020-05-09 08:56] LABS: Calcium 8.4 mg/dL (7.8-10.44); Glucose 137 mg/dL (70-105)
[2020-05-09 08:57] LABS: Globulin 3.5 g/dL (2.4-3.5); Protein, Total 7.8 g/dL (6.0-8.3)
[2020-05-09 08:58] LABS: Bilirubin, Total 0.4 mg/dL (0.2-1.2); Carbon Dioxide 19 mmol/L (22-29)
[2020-05-09 08:59] LABS: Alkaline Phosphatase 114 U/L (40-110)
[2020-05-09 09:00] LABS: Calc. Creatinine Clearance 0 mL/min (70-130); Estimated GFR-MDRD 5
[2020-05-09 09:01] LABS: BUN (Urea Nitrogen) 90 mg/dL (8.9-20.6)
[2020-05-09 09:02] LABS: ALT (SGPT) 20 U/L (8-55); AST (SGOT) 17 U/L (5-34); Lipase 124 U/L (8-78)
[2020-05-09 09:03] LABS: CK (CPK) 203 U/L (30-200)
[2020-05-09 09:59] LABS: Anion Gap 23 mmol/L (10-20)
== END 2020-05-09 14:47 | disposition home or self-care (01) ==
LOC: ERS 07:55
DX: E87.5 Hyperkalemia (principal); E10.9 Type 1 diabetes mellitus without complications; I10 Essential (primary) hypertension; Z49.02 Encounter for fitting and adjustment of peritoneal dialysis catheter; Z79.899 Other long term (current) drug therapy
CPT/HCPCS: 36415; 71045; 80053; 82550; 83690; 83880; 84484; 85025; 90935; 93005; G0257

== ENCOUNTER 2020-05-16 07:10 | Emergency (ER) | payer MEDICAID ==
[2020-05-16 07:46] LABS: #Basophils 0.1 thou/uL (0.0-0.2); #Eosinphils 0.3 thou/uL (0.0-0.7); #Lymphocytes 1.6 thou/uL (1.20-3.40); #Monocytes 0.9 thou/uL (0.11-0.59); #Neutrophils 4.6 thou/uL (1.40-6.50); %Basophils 1.8 % (0.0-1.0); %Eosinophils 4.1 % (0.0-10.0); %Lymphocytes 21.6 % (21.0-51.0); %Monocytes 11.9 % (0.0-10.0); %Neutrophils 60.7 % (42.0-75.0); Hemoglobin 8.6 g/dL (14.0-18.0); Mean Corpuscular HGB CONC 32.4 g/dL (32.0-36.0); Mean Corpuscular Hemoglobin 29.6 pg (27.0-31.0); Mean Corpuscular Volume 91.3 fL (78.0-98.0); Mean Platelet Volume 8.1 fL (7.4-10.4); Platelet Count 374 thou/uL (130-400); RBC Distribution Width 13.1 % (11.5-14.5); Red Blood Cell (RBC) Count 2.91 mill/uL (4.70-6.10); White Blood Cell (WBC) Count 7.6 thou/uL (4.8-10.8)
[2020-05-16 08:00] LABS: ALT (SGPT) 24 U/L (8-55); AST (SGOT) 22 U/L (5-34); Albumin 4.4 g/dL (3.5-5.0); Alkaline Phosphatase 135 U/L (40-110); Anion Gap 22 mmol/L (10-20); BUN (Urea Nitrogen) 111 mg/dL (8.9-20.6); Bilirubin, Total 0.4 mg/dL (0.2-1.2); Calc. Creatinine Clearance 0 mL/min (70-130); Calcium 8.8 mg/dL (7.8-10.44); Carbon Dioxide 23 mmol/L (22-29); Chloride 103 mmol/L (98-107); Estimated GFR-MDRD 5; Globulin 3.9 g/dL (2.4-3.5); Glucose 113 mg/dL (70-105); Potassium 6.5 mmol/L (3.5-5.1); Protein, Total 8.3 g/dL (6.0-8.3); Sodium 141 mmol/L (136-145)
[2020-05-16] MEDS ORDERED: Calcium Chloride 1 GM/10 ML Abboject SYRINGE ONE (08:23)
[2020-05-16] MEDS ORDERED: Sodium Bicarb 50 MEQ/50 ML Abboject 8.4% SYRINGE ONE (08:23)
== END 2020-05-16 15:33 | disposition home or self-care (01) ==
LOC: ERS 07:10
DX: N99.0 Postprocedural (acute) (chronic) kidney failure (principal); E10.22 Type 1 diabetes mellitus with diabetic chronic kidney disease; N18.6 End stage renal disease; Z99.2 Dependence on renal dialysis; E87.5 Hyperkalemia; I10 Essential (primary) hypertension; Z79.899 Other long term (current) drug therapy
CPT/HCPCS: 80053; 85025; 90935; 93005; 96365; 96375; G0257

== ENCOUNTER 2020-05-23 07:52 | Emergency (ER) | payer MEDICAID, SELFPAY ==
[2020-05-23 08:40] LABS: #Basophils 0.2 thou/uL (0.0-0.2); #Eosinphils 0.5 thou/uL (0.0-0.7); #Lymphocytes 2.2 thou/uL (1.20-3.40); #Monocytes 0.9 thou/uL (0.11-0.59); %Basophils 1.7 % (0.0-1.0); %Monocytes 8.9 % (0.0-10.0); %Neutrophils 61.4 % (42.0-75.0); Hemoglobin 9.1 g/dL (14.0-18.0); Mean Corpuscular HGB CONC 32.9 g/dL (32.0-36.0); Mean Corpuscular Hemoglobin 29.4 pg (27.0-31.0); Mean Corpuscular Volume 89.3 fL (78.0-98.0); Mean Platelet Volume 8.5 fL (7.4-10.4); Platelet Count 380 thou/uL (130-400); RBC Distribution Width 12.9 % (11.5-14.5); White Blood Cell (WBC) Count 9.7 thou/uL (4.8-10.8)
[2020-05-23 09:05] LABS: Phosphorus 8.8 mg/dL (2.3-4.7)
[2020-05-23 09:09] LABS: ALT (SGPT) 35 U/L (8-55); AST (SGOT) 35 U/L (5-34); Albumin 4.8 g/dL (3.5-5.0); Alkaline Phosphatase 147 U/L (40-110); Anion Gap 23 mmol/L (10-20); BUN (Urea Nitrogen) 108 mg/dL (8.9-20.6); Bilirubin, Total 0.4 mg/dL (0.2-1.2); Calc. Creatinine Clearance 0 mL/min (70-130); Calcium 9.1 mg/dL (7.8-10.44); Carbon Dioxide 19 mmol/L (22-29); Chloride 102 mmol/L (98-107); Estimated GFR-MDRD 4; Globulin 4.3 g/dL (2.4-3.5); Glucose 157 mg/dL (70-105); Magnesium 2.7 mg/dL (1.6-2.6); Potassium 6.4 mmol/L (3.5-5.1); Protein, Total 9.1 g/dL (6.0-8.3); Sodium 138 mmol/L (136-145)
[2020-05-23 12:09] LABS: Hep B Surf Ag Non-Reactive S/CO (NonReactive)
[2020-05-23 12:10] LABS: HBSAg Index 0.14 S/CO (0-0.99)
== END 2020-05-23 14:55 | disposition home or self-care (01) ==
LOC: ERS 07:52
DX: I12.0 Hypertensive chronic kidney disease with stage 5 chronic kidney disease or end stage renal disease (principal); E10.22 Type 1 diabetes mellitus with diabetic chronic kidney disease; N18.6 End stage renal disease; E87.5 Hyperkalemia; E83.39 Other disorders of phosphorus metabolism; R79.89 Other specified abnormal findings of blood chemistry; Z99.2 Dependence on renal dialysis; Z79.899 Other long term (current) drug therapy
CPT/HCPCS: 36415; 80053; 83735; 84100; 85025; 87340; 90935; 99283; G0257

== ENCOUNTER 2020-05-29 07:11 | Emergency (ER) | payer SELFPAY ==
[2020-05-29 08:03] LABS: Anion Gap 27 mmol/L (10-20); BUN (Urea Nitrogen) 114 mg/dL (8.9-20.6); Calc. Creatinine Clearance 0 mL/min (70-130); Calcium 8.4 mg/dL (7.8-10.44); Carbon Dioxide 18 mmol/L (22-29); Chloride 102 mmol/L (98-107); Estimated GFR-MDRD 4; Glucose 130 mg/dL (70-105); Potassium 5.8 mmol/L (3.5-5.1); Sodium 141 mmol/L (136-145)
== END 2020-05-29 08:45 | disposition home or self-care (01) ==
LOC: ERS 07:11
DX: I12.0 Hypertensive chronic kidney disease with stage 5 chronic kidney disease or end stage renal disease (principal); N18.5 Chronic kidney disease, stage 5; E10.22 Type 1 diabetes mellitus with diabetic chronic kidney disease; Z79.899 Other long term (current) drug therapy; Z99.2 Dependence on renal dialysis
CPT/HCPCS: 36415; 80048; 93005

== ENCOUNTER 2020-05-31 07:35 | Emergency (ER) | payer MEDICAID ==
[2020-05-31 08:15] LABS: #Basophils 0.2 thou/uL (0.0-0.2); #Monocytes 0.8 thou/uL (0.11-0.59); %Basophils 1.7 % (0.0-1.0); %Eosinophils 9.7 % (0.0-10.0); %Lymphocytes 20.2 % (21.0-51.0); %Monocytes 7.5 % (0.0-10.0); %Neutrophils 60.9 % (42.0-75.0); Hemoglobin 8.1 g/dL (14.0-18.0); Mean Corpuscular HGB CONC 33.3 g/dL (32.0-36.0); Mean Corpuscular Hemoglobin 29.8 pg (27.0-31.0); Mean Corpuscular Volume 89.3 fL (78.0-98.0); Mean Platelet Volume 8.3 fL (7.4-10.4); Platelet Count 313 thou/uL (130-400); Red Blood Cell (RBC) Count 2.73 mill/uL (4.70-6.10); White Blood Cell (WBC) Count 9.9 thou/uL (4.8-10.8)
[2020-05-31 08:37] LABS: ALT (SGPT) 17 U/L (8-55); AST (SGOT) 13 U/L (5-34); Albumin 4.5 g/dL (3.5-5.0); Alkaline Phosphatase 109 U/L (40-110); Anion Gap 26 mmol/L (10-20); BUN (Urea Nitrogen) 120 mg/dL (8.9-20.6); Bilirubin, Total 0.5 mg/dL (0.2-1.2); Calc. Creatinine Clearance 0 mL/min (70-130); Calcium 8.5 mg/dL (7.8-10.44); Carbon Dioxide 18 mmol/L (22-29); Chloride 104 mmol/L (98-107); Estimated GFR-MDRD 4; Glucose 130 mg/dL (70-105); Magnesium 2.7 mg/dL (1.6-2.6); Potassium 5.5 mmol/L (3.5-5.1); Protein, Total 8.5 g/dL (6.0-8.3); Sodium 142 mmol/L (136-145)
[2020-05-31 08:41] LABS: Phosphorus 9.3 mg/dL (2.3-4.7)
[2020-05-31] MEDS ORDERED: EPOETIN ALFA-EPBX (ESRD) 4,000 UNIT/ML VIAL SC SCH (10:45)
== END 2020-05-31 15:01 | disposition home or self-care (01) ==
LOC: ERS 07:35
DX: I12.0 Hypertensive chronic kidney disease with stage 5 chronic kidney disease or end stage renal disease (principal); E10.22 Type 1 diabetes mellitus with diabetic chronic kidney disease; N18.6 End stage renal disease; Z99.2 Dependence on renal dialysis; Z79.899 Other long term (current) drug therapy
CPT/HCPCS: 80053; 83735; 84100; 85025; 90935; G0257; Q5105

== ENCOUNTER 2020-06-06 07:43 | Observation (INO) | payer MEDICAID, OTHER ==
[2020-06-06 08:15] LABS: Hemoglobin 8.6 g/dL (14.0-18.0); Mean Corpuscular HGB CONC 33.5 g/dL (32.0-36.0); Mean Corpuscular Hemoglobin 29.8 pg (27.0-31.0); Mean Platelet Volume 7.8 fL (7.4-10.4); Platelet Count 446 thou/uL (130-400); Red Blood Cell (RBC) Count 2.87 mill/uL (4.70-6.10); White Blood Cell (WBC) Count 9.7 thou/uL (4.8-10.8)
[2020-06-06 08:34] LABS: Band 1 % (5-11); Eosinophils 5 % (0-10); Lymphocytes 20 % (21-51); MDiff Complete? YES; Monocytes 9 % (0-10); Neutrophil 64 % (42-75); Platelet Morphology Comment Appears Increased; Polychromasia SLIGHT = 2-3 cells (100X) (0-2/hpf)
[2020-06-06 08:38] LABS: Anion Gap 26 mmol/L (10-20); Calc. Creatinine Clearance 0 mL/min (70-130); Calcium 8.4 mg/dL (7.8-10.44); Carbon Dioxide 16 mmol/L (22-29); Chloride 102 mmol/L (98-107); Estimated GFR-MDRD 4; Glucose 157 mg/dL (70-105); Potassium 5.4 mmol/L (3.5-5.1); Sodium 139 mmol/L (136-145)
[2020-06-06 08:50] LABS: BUN (Urea Nitrogen) 117 mg/dL (8.9-20.6)
[2020-06-06] MEDS ORDERED: Epoetin (ESRD) 20,000 UNITS/ML SC SCH (09:00)
[2020-06-06] MEDS ORDERED: EPOETIN ALFA-EPBX (ESRD) 4,000 UNIT/ML VIAL SC SCH (12:00)
[2020-06-06] MEDS ORDERED: hydrALAZINE 20 MG/ML VIAL SLOW IVP PRN (15:51)
[2020-06-06] MEDS ORDERED: Acetaminophen 500 MG TAB PO PRN (15:51)
[2020-06-06] MEDS ORDERED: Ondansetron PF 4 MG/2 ML Vial IVP PRN (15:51)
[2020-06-06 16:51] VITALS: BMI 20.7
[2020-06-06] MEDS ORDERED: Calcium Acetate 667 MG CAP PO SCH (17:00)
[2020-06-06 17:05] VITALS: BP 127/84; TEMP 98.7
--- NOTE | 2020-06-07 00:31 | HP ---
PRIMARY CARE PROVIDER: Dr. Solitario. PRIMARY MEDICAL AUDITOR: Dr. Farris. CHIEF COMPLAINT: Needing dialysis. HISTORY OF PRESENT ILLNESS: This is a 34-year-old male, who returns for maintenance hemodialysis in the context of limited funding and immigration status. The patient has been receiving hemodialysis at [facility] through the emergency room on a weekly basis. The patient states he has no specific complaints and had been waiting approximately 2 weeks between hemodialysis sessions, however, due to worsening symptoms, has been coming in once a week for his dialysis. The patient denied any prominent lower extremity swelling, increased shortness of breath, fever, chills, or exposure history. The patient denies any chest pain, shortness of breath, or recent trauma. In the emergency room, the patient was noted with mild hyperkalemia on metabolic screening and referred to the hemodialysis unit for maintenance hemodialysis. PAST MEDICAL HISTORY: 1. Hypertension. 2. End-stage renal disease with hemodialysis. PAST SURGICAL HISTORY: 1. Status post AV fistula placement. 2. Status post temporary hemodialysis placement with subsequent removal. CURRENT MEDICATIONS: 1. PhosLo 667 mg 2 capsules p.o. t.i.d. with meals. 2. Amlodipine 10 mg p.o. daily. 3. Calcitriol 0.25 mcg p.o. daily. ALLERGIES: NO KNOWN DRUG ALLERGIES. FAMILY HISTORY: No inheritable diseases per the patient's report. SOCIAL HISTORY: . Resides in [place]. No current alcohol, tobacco, or illicit drug use. REVIEW OF SYSTEMS: CONSTITUTIONAL: Negative for weight loss or gain, ability to conduct usual activities. SKIN: Negative for rash, itching. EYES: Negative for double vision, pain. ENT/MOUTH: Negative for nose bleeding, neck stiffness, pain, tenderness. CARDIOVASCULAR: Negative for palpitations, dyspnea on exertion, orthopnea. RESPIRATORY: Negative for shortness of breath, wheezing, cough, hemoptysis, fever or night sweats. GASTROINTESTINAL: Negative for poor appetite, abdominal pain, heartburn, nausea, vomiting, constipation, or diarrhea. GENITOURINARY: Negative for urgency, frequency, dysuria, nocturia. MUSCULOSKELETAL: Negative for pain, swelling. NEUROLOGIC/PSYCHIATRIC: Negative for anxiety, depression. ALLERGY/IMMUNOLOGIC: Negative for skin rash, bleeding tendency. Otherwise, negative except as stated per HPI. PHYSICAL EXAMINATION: VITAL SIGNS: On admission, blood pressure 151/85, pulse 88, respiratory rate is 19, temperature 98.1 degrees Fahrenheit, and O2 saturation 100% on room air. GENERAL APPEARANCE: This is a 34-year-old male, alert and oriented x3, pleasant, responsive, lying on the hospital bed, receiving hemodialysis. HEENT: Pupils are equal, round, and reactive to light and accommodation. Extraocular muscles are intact. No scleral icterus. No conjunctival injection. Nares are patent. OP is clear. Teeth in fair repair. NECK: Supple. No cervical adenopathy. No thyromegaly. No carotid bruits. No JVD appreciated. Cervical spine with full active and passive range of motion. CHEST: Lungs are clear to auscultation bilaterally. CARDIOVASCULAR: S1 and S2 without noted murmur, rub, or gallop. ABDOMEN: Flat, soft, nontender, and nondistended. Bowel sounds are positive in all 4 quadrants. There is no hepatosplenomegaly. No abdominal bruits. No rebound or guarding appreciated. EXTREMITIES: Warm and dry with fair turgor. No clubbing, cyanosis, or asymmetric edema appreciated. Pulses are palpable distally at the dorsalis pedis, posterior tibial, and popliteal arteries bilaterally. Capillary refill less than 2 seconds. Right upper extremity with AV fistula in place. NEUROLOGIC: Cranial nerves 2 through 12 are grossly intact. No focal or lateralizing signs appreciated. PERTINENT LABORATORY AND X-RAY FINDINGS: Sodium 139, potassium 5.4, chloride 102, CO2 of 16, BUN 117, creatinine 14.98, estimated GFR 4, glucose 157, calcium 8.4. CBC showed a white blood cell count of 9.7, hemoglobin 8.6, hematocrit 26, platelet count 446 with 64% neutrophils. EKG dated 06/06/2020, by my interpretation shows sinus mechanism with heart rates in the 80s. Normal R-wave progression noted in the precordial leads. Normal axis. No acute ST-T wave changes appreciated. ASSESSMENT AND PLAN: 1. End-stage renal disease with hemodialysis. We will place in observation status and undergo hemodialysis this afternoon. Nephrology consulted for coordination of hemodialysis timing. 2. Hyperkalemia secondary to #1. Mild elevation in the context of end-stage renal disease. See #1 above. 3. Anemia of chronic kidney disease. No current evidence to suggest active bleeding. Epoetin x1 dose today. 4. Prophylaxis. SCDs while in bed. 5. Code status is full. Surrogate medical decision maker is the patient's spouse. The patient will be discharged after hemodialysis session completed this afternoon. Job ID: [id number]
--- NOTE | 2020-06-07 01:53 | DIS ---
DATE OF ADMISSION: 06/06/2020 DATE OF DISCHARGE: 06/06/2020 DISCHARGE DIAGNOSES: 1. End-stage renal disease with hemodialysis. 2. Hyperkalemia secondary to #1. 3. Anemia and chronic kidney disease. CONSULTATIONS: Dr. Farris with Nephrology Service. PERTINENT LABORATORY AND X-RAY FINDINGS: Potassium 5.4, BUN 117, creatinine 14.98, calcium 8.4. CBC showed a hemoglobin of 8.6, hematocrit 26, platelet count 446. HOSPITAL COURSE: The patient was observed after presenting for maintenance hemodialysis, undergoing a regular hemodialysis session without complication. The patient received Epogen at the direction of Nephrology Service and tolerated without complication. Overall, the patient remained clinically stable during the hospital course with stable vital signs. I have examined the patient at the time of discharge and discussed followup instructions. The patient verbalized understanding and in agreement, ready for discharge, 06/06/2020. DISCHARGE MEDICATIONS: 1. PhosLo 667 mg 2 capsules p.o. t.i.d. with meals. 2. Amlodipine 10 mg p.o. daily. 3. Calcitriol 0.25 mcg p.o. daily. FOLLOWUP: The patient may follow up with Dr. Solitario as needed. The patient will follow up with Dr. Farris with Nephrology Service. CONDITION ON DISCHARGE: Fair. ACTIVITY: Ad-michael. DIET: Renal. CODE STATUS: Full. DISPOSITION: Home, 06/06/2020. Job ID: [id number]
[2020-06-07] MEDS ORDERED: Amlodipine 10 MG TAB PO SCH (09:00)
[2020-06-07] MEDS ORDERED: Calcitriol 0.25 MCG CAP PO SCH (09:00)
[2020-06-07 11:42] LABS: SARS-CoV-2 MS2 Positive; SARS-CoV-2 N Gene Negative; SARS-CoV-2 S Gene Negative; SARS-CoV-2 by NAA Not Detected (NotDetected); SARS-CoV-2 orf1ab Negative
== END 2020-06-06 17:47 | disposition home or self-care (01) ==
LOC: ERS 07:43 → ONC 15:00
PROVIDERS: ADMIT Family Medicine; ATTEND Family Medicine
DX: I12.0 Hypertensive chronic kidney disease with stage 5 chronic kidney disease or end stage renal disease (principal); E10.22 Type 1 diabetes mellitus with diabetic chronic kidney disease; N18.6 End stage renal disease; D63.1 Anemia in chronic kidney disease; E87.5 Hyperkalemia; Z99.2 Dependence on renal dialysis
CPT/HCPCS: 80048; 85025; 87635; 93005; 96372; G0378; Q5105; U0003

== ENCOUNTER 2020-07-03 08:09 | Emergency (ER) | payer MEDICAID, SELFPAY ==
[2020-07-03 08:57] LABS: Phosphorus 7.4 mg/dL (2.3-4.7)
[2020-07-03 08:59] LABS: ALT (SGPT) 13 U/L (8-55); AST (SGOT) 18 U/L (5-34); Albumin 4.1 g/dL (3.5-5.0); Alkaline Phosphatase 94 U/L (40-110); Anion Gap 23 mmol/L (10-20); BUN (Urea Nitrogen) 95 mg/dL (8.9-20.6); Bilirubin, Total 0.5 mg/dL (0.2-1.2); Calc. Creatinine Clearance 0 mL/min (70-130); Calcium 7.7 mg/dL (7.8-10.44); Carbon Dioxide 21 mmol/L (22-29); Chloride 101 mmol/L (98-107); Estimated GFR-MDRD 5; Globulin 3.6 g/dL (2.4-3.5); Glucose 117 mg/dL (70-105); Magnesium 2.5 mg/dL (1.6-2.6); Potassium 5.5 mmol/L (3.5-5.1); Protein, Total 7.7 g/dL (6.0-8.3); Sodium 139 mmol/L (136-145)
[2020-07-03 09:34] LABS: Band 3 % (5-11); Eosinophils 7 % (0-10); Hemoglobin 9.3 g/dL (14.0-18.0); Lymphocytes 23 % (21-51); MDiff Complete? YES; Mean Corpuscular HGB CONC 32.4 g/dL (32.0-36.0); Mean Corpuscular Hemoglobin 29.9 pg (27.0-31.0); Mean Corpuscular Volume 92.2 fL (78.0-98.0); Mean Platelet Volume 7.6 fL (7.4-10.4); Monocytes 8 % (0-10); Neutrophil 57 % (42-75); Platelet Count 546 thou/uL (130-400); Platelet Morphology Comment Appears Increased; Polychromasia SLIGHT = 2-3 cells (100X) (0-2/hpf); RBC Distribution Width 13.5 % (11.5-14.5); Red Blood Cell (RBC) Count 3.11 mill/uL (4.70-6.10); White Blood Cell (WBC) Count 8.1 thou/uL (4.8-10.8)
--- NOTE | 2020-07-03 09:51 | RAD ---
CHEST 1 VIEW: HISTORY: ESRD, patient for dialysis, followup dyspnea. COMPARISON: 06/16/2020. FINDINGS: Left dual-lumen venous access catheter. Minimal blunting of the costophrenic angles, probably small pleural effusions. No confluent pneumonia, or overt edema. IMPRESSION: Probable small pleural effusions with blunting of the costophrenic angles. No evidence for other acu te process. POS: RRE
[2020-07-03] MEDS ORDERED: Heparin 10,000 UNITS/ 10 ML VIAL ONE (10:51)
[2020-07-03] MEDS ORDERED: EPOETIN ALFA-EPBX (ESRD) 10,000 UNIT/ML VIAL IVP SCH (13:30)
--- NOTE | 2020-07-08 15:13 | EKG ---
Test Reason : Blood Pressure : / mmHG Vent. Rate : 081 BPM Atrial Rate : 081 BPM P-R Int : 152 ms QRS Dur : 090 ms QT Int : 410 ms P-R-T Axes : 033 016 072 degrees QTc Int : 476 ms Normal sinus rhythm Possible Left atrial enlargement Borderline ECG Confirmed by EMILIANO PINA DO ([id number]), editor publications VIANEY VAZQUEZ ([id number]) on 07/08/2020 3:12:47 PM Referred By: Confirmed By:EMILIANO PINA DO
== END 2020-07-03 14:14 | disposition home or self-care (01) ==
LOC: ERS 08:09
DX: I12.0 Hypertensive chronic kidney disease with stage 5 chronic kidney disease or end stage renal disease (principal); N18.6 End stage renal disease; E10.22 Type 1 diabetes mellitus with diabetic chronic kidney disease; Z99.2 Dependence on renal dialysis
CPT/HCPCS: 36415; 71045; 80053; 83735; 84100; 85025; 90935; 93005; 94760; G0257; J1644; Q5105

== ENCOUNTER 2020-07-10 08:05 | Inpatient (IN) | payer MEDICAID, SELFPAY ==
[2020-07-10 08:48] LABS: Hemoglobin 9.1 g/dL (14.0-18.0); Mean Corpuscular Hemoglobin 29.9 pg (27.0-31.0); Mean Corpuscular Volume 90.8 fL (78.0-98.0); Mean Platelet Volume 8.3 fL (7.4-10.4); Platelet Count 495 thou/uL (130-400); RBC Distribution Width 14.4 % (11.5-14.5); Red Blood Cell (RBC) Count 3.04 mill/uL (4.70-6.10); White Blood Cell (WBC) Count 17.2 thou/uL (4.8-10.8)
[2020-07-10 08:51] LABS: Band 5 % (5-11); Lymphocytes 12 % (21-51); MDiff Complete? YES; Monocytes 7 % (0-10); Neutrophil 76 % (42-75); Platelet Morphology Comment Appears Increased; Polychromasia SLIGHT = 2-3 cells (100X) (0-2/hpf)
[2020-07-10 08:59] LABS: ALT (SGPT) 15 U/L (8-55); AST (SGOT) 21 U/L (5-34); Albumin 4.3 g/dL (3.5-5.0); Alkaline Phosphatase 79 U/L (40-110); Anion Gap 27 mmol/L (10-20); BUN (Urea Nitrogen) 109 mg/dL (8.9-20.6); Bilirubin, Total 0.8 mg/dL (0.2-1.2); Calc. Creatinine Clearance 0 mL/min (70-130); Calcium 8.4 mg/dL (7.8-10.44); Carbon Dioxide 15 mmol/L (22-29); Chloride 103 mmol/L (98-107); Estimated GFR-MDRD 4; Globulin 3.9 g/dL (2.4-3.5); Glucose 134 mg/dL (70-105); Potassium 5.8 mmol/L (3.5-5.1); Protein, Total 8.2 g/dL (6.0-8.3); Sodium 139 mmol/L (136-145)
--- NOTE | 2020-07-10 09:03 | RAD ---
EXAM: Single view of the chest HISTORY: Hypoxia COMPARISON: 07/03/2020 FINDINGS: Single view of the chest shows an enlarged cardiomediastinal silhouette. The dialysis cath eter is unchanged in position. There are small bilateral pleural effusions. Opacities in the lung bases may represent atelectasis or infiltrates. No acute osseous abnormality. IMPRESSION: 1. Bibasilar atelectasis versus infiltrates 2. Small bilateral pleural effusions 3. Cardiomegaly
[2020-07-10] MEDS ORDERED: Heparin 10,000 UNITS/ 10 ML VIAL ONE (09:06)
[2020-07-10] MEDS ORDERED: Nitroglycerin 2% Ointment 1 INCH/1 GM Packet ONE (09:20)
[2020-07-10] MEDS ORDERED: Aspirin Chewable 81 MG TAB ONE (09:20)
[2020-07-10 09:28] LABS: CKMB 10.3 ng/mL (0-6.6)
[2020-07-10] MEDS ORDERED: Azithromycin 500 MG VIAL ONE (09:33)
[2020-07-10] MEDS ORDERED: Cefepime 2 GM VIAL ONE (09:33)
--- NOTE | 2020-07-10 10:16 | CT ---
EXAM: CT pulmonary angiogram with IV contrast and 3-D MIP reconstructions PROVIDED CLINICAL HISTORY: Hypoxia COMPARISON: None FINDINGS: There is no evidence for central or segmental pulmonary embolus. There is patchy multifocal groundglass opacity throughout both lungs, predominating in the lung bases . There is superimposed consolidation at the medial right lung base. Small bilateral pleural fluid. No evidence for pneumothorax. No evidence for thoracic lymph node enlargement. The airway appears patent and of normal caliber. The visualized portions of the upper abdomen demonstrate no acute findings. The osseous structures demonstrate no concerning lytic or blastic lesions. IMPRESSION: 1. No evidence for central or segmental pulmonary embolus. 2. Conspicuous bilateral lung parenchymal opacity , possibly reflecting pulmonary edema. Infectious e tiologies are also possible. 3. Small bilateral pleural fluid.
[2020-07-10 10:50] LABS: SARS-CoV-2 NAA Rapid Test Not Detected (NotDetected)
[2020-07-10] MEDS ORDERED: Guaifenesin DM 100-10/5 ML UDCUP PO PRN (12:22)
[2020-07-10] MEDS ORDERED: Bisacodyl 10 MG SUPP PR PRN (12:22)
[2020-07-10] MEDS ORDERED: Acetaminophen 325 MG TAB PO PRN (12:22)
[2020-07-10] MEDS ORDERED: Ondansetron PF 4 MG/2 ML Vial IVP PRN (12:22)
[2020-07-10] MEDS ORDERED: HYDROcodone/Acetaminophen 5/325 mg Tablet PO PRN (12:22)
[2020-07-10] MEDS ORDERED: Calcium Carbonate 500 MG ChewTAB PO PRN (12:22)
[2020-07-10] MEDS ORDERED: Senokot S 8.6-50 MG TAB PO PRN (12:22)
[2020-07-10] MEDS ORDERED: Iopamidol-370 76% 500 ML 1 ML ONE (13:45)
[2020-07-10 15:11] LABS: Troponin I 1.721 ng/mL (< 0.028)
--- NOTE | 2020-07-10 17:51 | HP ---
REASON FOR ADMISSION: Severe volume overload, noncompliance with hemodialysis with end-stage renal disease due to financial reasons, indeterminate troponin for further evaluation, likely non ST elevation type 2 due to demand ischemia. HISTORY OF PRESENTING ILLNESS: The patient came to ER with complaints of severe shortness of breath. He usually gets dialyzed every 2 weeks due to financial constraints. The patient's last hemodialysis was on 07/03/2020. There are no complaints of chest pain or palpitation. No complaints of cough or expectoration. No fever as of now. He lives with his cousin. On arrival, the patient had a BNP of more than 7000. Troponin of 1.1 with BUN of 109, creatinine 13.9, and serum bicarb of 15. He has not had any fever. PAST MEDICAL AND SURGICAL HISTORY: End-stage renal disease, on hemodialysis for the last 8 months, hypertension, dialysis access procedures including AV fistula and tunneled dialysis catheter as well CURRENT MEDICATIONS: 1. Norvasc 10 mg daily. 2. Calcitriol 0.25 mcg daily. 3. Ferrous sulfate 325 mg twice daily. 4. PhosLo 667 mg two capsules three times daily. ALLERGIES: NO KNOWN DRUG ALLERGIES. PERSONAL HISTORY: Does not abuse alcohol or drugs. No history of smoking. FAMILY HISTORY: No inheritable disease by the patient's report. Both parents are . CODE STATUS: Full. REVIEW OF SYSTEMS: CONSTITUTIONAL: Negative for weight loss or gain, ability to conduct usual activities. SKIN: Negative for rash, itching. EYES: Negative for double vision, pain. ENT/MOUTH: Negative for nose bleeding, neck stiffness, pain, tenderness. CARDIOVASCULAR: Negative for palpitations, dyspnea on exertion, orthopnea. RESPIRATORY: Negative for shortness of breath, wheezing, cough, hemoptysis, fever or night sweats. GASTROINTESTINAL: Negative for poor appetite, abdominal pain, heartburn, nausea, vomiting, constipation, or diarrhea. GENITOURINARY: Negative for urgency, frequency, dysuria, nocturia. MUSCULOSKELETAL: Negative for pain, swelling. NEUROLOGIC/PSYCHIATRIC: Negative for anxiety, depression. ALLERGY/IMMUNOLOGIC: Negative for skin rash, bleeding tendency. PHYSICAL EXAMINATION: GENERAL: The patient is a 34-year-old male, who is currently not in any acute distress. VITAL SIGNS: Blood pressure 144/78, pulse 96 per minute, respiratory rate 22 per minute, temperature 98.6 degrees Fahrenheit, and saturating 72% on room air and 100% on 3 L on nasal cannula. NECK: Supple. There is elevated JVD. HEENT: Eyes; extraocular muscles are intact. Pupils reacting to light. Oral cavity, mucous membranes are moist. No exudates or congestion. CARDIOVASCULAR: S1 and S2 heard. Loud S2. Murmur plus. RESPIRATORY: Air entry 1+ bilateral. Scattered rales plus in the infrascapular area. ABDOMEN: Soft. Bowel sounds heard. No tenderness, rigidity, or guarding. EXTREMITIES: No peripheral edema or calf tenderness. VASCULAR SYSTEM: Peripheral pulses 1+ bilateral. No ischemic ulcerations or gangrene. CENTRAL NERVOUS SYSTEM: No gross focal motor deficits noted. The patient is alert, awake, and oriented well. PSYCHIATRIC: The patient's mood is euthymic. No hallucinations or delusions. LABORATORY DATA: White count of 17, hemoglobin and hematocrit of 9 and 27, platelet count 495, MCV is 90 with 76% neutrophils. Serum potassium is 5.8, serum bicarb 15, BUN 109, creatinine 13.9, serum glucose is 134. CK-MB 10. Troponin 1.1. Liver enzymes within normal limits. BNP is 7079. Albumin is 4.3. COVID-19 PCR is not detected. IMAGING STUDIES: CT angio chest done today shows no evidence of PE. EKG done shows sinus rhythm at 95 beats per minute. No gross ST-T wave changes. CLINICAL IMPRESSION AND PLAN: The patient will be admitted to telemetry for severe volume overload with noncompliance with hemodialysis. He has elevated troponin of 1, likely non-ST elevation type 2 with demand ischemia from volume overload. We will consult Dr. Farris for emergent dialysis and Dr. Bernal for Cardiology. We will trend his troponin x2. He will be on nitroglycerin paste half-inch q.8 hourly, a small dose of aspirin. We will also add Lopressor after dialysis. We will continue his Norvasc, ferrous sulfate, calcitriol, and PhosLo as before. Echo with 2D Doppler for LV function and wall motion will be obtained. If his troponin trends to increase, he likely will need further cardiac workup. He is totally asymptomatic except for shortness of breath at present. Job ID: [id number]
--- NOTE | 2020-07-10 17:54 | PRG ---
DATE OF SERVICE: 07/10/2020 SERVICE: Renal Medicine. SUBJECTIVE: Mr. Barnett is a 34-year-old male with chronic renal failure/ESRD and went to the ER to report for his regular dialysis. During the initial evaluation, the patient was noted to have an elevated troponin I in his admission. We are now being consulted for his hemodialysis. He underwent his regular 4-hour hemodialysis this afternoon. He tolerated his said treatment. Currently, he denies any chest pain or shortness of breath. OBJECTIVE: VITAL SIGNS: Blood pressure is noted at 141/83, heart rate 95 respiratory rate 22, and O2 saturation 96%. GENERAL: The patient is awake, alert, supine, comfortable, not in distress. SKIN: Adequate turgor. HEENT: Slightly pale conjunctivae. Anicteric sclerae. NECK: No neck mass. No carotid bruits. No JVD. CHEST: No deformities. LUNGS: Decreased breath sounds. HEART: Normal sinus rhythm. No murmur. No gallops. No rubs. ABDOMEN: Globular, soft, and nontender. No masses. EXTREMITIES: No edema. No deformities. MEDICATIONS: Of July 10, 2020 reviewed. LABORATORY DATA: Laboratories of July 10, 2020; white count 17.2, hemoglobin 9.1. Sodium 139, potassium 5.8, chloride 103, carbon dioxide 15, BUN 109, creatinine 13.93, glucose 134, and albumin 4.3. Troponin I is 1.721, CK-MB is 10.3. IMAGING DATA: Chest/CT of the thorax, no findings of pulmonary embolism. He does have bilateral pleural effusions and cardiomegaly. ASSESSMENT AND PLAN: 1. End-stage renal disease/chronic renal failure - the patient underwent emergent hemodialysis. We treated him for 4 hours. Fluid removal was done and he tolerated said procedure. 2. Mild hyperkalemia. Emergent dialysis done. 3. Secondary hyperparathyroidism and hyperphosphatemia. The patient is currently on calcitriol at 0.25 mcg tablet daily. He is also on Tums as well as PhosLo - 667 mg 2 tablets t.i.d. with meals. 4. Anemia. Consider starting the patient on Epogen at 7500 units subcu weekly. Job ID: [id number]
[2020-07-10 17:58] LABS: Troponin I 1.855 ng/mL (< 0.028)
[2020-07-10] MEDS: Nitroglycerin 2% Ointment 1 INCH/1 GM Packet TOP SCH ×2 (18:12→20:39)
[2020-07-10] MEDS: Calcium Acetate 667 MG CAP PO SCH (18:12)
--- NOTE | 2020-07-10 19:35 | CON ---
DATE OF CONSULTATION: REASON FOR CONSULTATION: Elevated troponin. HISTORY OF PRESENT ILLNESS: Mr. Barnett is a 34-year-old gentleman who is a currently undocumented immigrant. He is undergoing dialysis through the emergency room every 10 to 15 days. He again was fluid overloaded. A troponin was drawn in the emergency room. The reason for troponin draw was unknown. He states he denied chest pain, pressure, or other associated symptoms. He only need his dialysis. The interview was conducted in [place]. He has no previous history of underlying coronary artery disease. PAST MEDICAL HISTORY: As above including end-stage renal disease, hypertension. HOME MEDICATIONS: Include; 1. Calcitriol. 2. Iron sulfate. 3. PhosLo. ALLERGIES: NONE. SOCIAL HISTORY: No current, tobacco, or alcohol use. FAMILY HISTORY: Negative for CAD. REVIEW OF SYSTEMS: A 10-point review of systems is reviewed as above, otherwise negative. PHYSICAL EXAMINATION: GENERAL: Patient is a pleasant gentleman, who is in no acute distress. The patient appears their stated age. VITAL SIGNS: Blood pressure 154/82, pulse 105, respirations 20. NEUROLOGIC: The patient is alert and oriented x3 with no focal neurologic deficits. HEENT: Sclerae without icterus. Mouth has moist mucous membranes with normal pallor. NECK: No JVD. Carotid upstroke brisk. No bruits bilaterally. LUNGS: Clear to auscultation with unlabored respirations. BACK: No scoliosis or kyphosis. CARDIAC: Regular rate and rhythm with normal S1 and S2. No S3 or S4 noted. No significant rubs, murmurs, thrills, or gallops noted throughout the precordium. PMI is not displaced. There is no parasternal heave. ABDOMEN: Soft, nontender, nondistended. No peritoneal signs present. No hepatosplenomegaly. No abnormal striae. EXTREMITIES: 2+ femoral and 2+ dorsalis pedis pulses. No cyanosis, clubbing, or edema. SKIN: No gross abnormalities. PERTINENT LABORATORY DATA: Hemoglobin 9.1. Peak troponin 1.8. Creatinine 13.93. Sodium 139, potassium 5.8. BNP was 7079. IMPRESSION: 1. Elevated troponin. 2. End-stage renal disease. RECOMMENDATIONS: Mr. Barnett's elevated troponin is likely secondary to demand ischemia. The patient has not undergone dialysis for several weeks. He has no current symptoms suggesting angina. His last echo did suggest a normal LVEF with LVH present. We would recommend repeating his echo. We would likely recommend a noninvasive stress study in the next 2 to 3 days to assess for ischemia, but again I would anticipate this is due to demand ischemia. We will also recommend low-dose beta ruthy therapy for blood pressure management. Continue aspirin and heparin. We will also consider Bharathi. Job ID: [id number]
[2020-07-10] MEDS: Carvedilol 3.125 MG TAB PO SCH (20:38)
[2020-07-10] MEDS: Heparin 5,000 UNITS/ML VIAL SC SCH (20:38)
[2020-07-10] MEDS: Ferrous Sulfate 325 MG TAB PO SCH (20:38)
[2020-07-11 04:13] LABS: #Basophils 0.2 thou/uL (0.0-0.2); #Eosinphils 0.2 thou/uL (0.0-0.7); #Lymphocytes 2.1 thou/uL (1.20-3.40); #Monocytes 2.3 thou/uL (0.11-0.59); #Neutrophils 13.7 thou/uL (1.40-6.50); %Eosinophils 0.8 % (0.0-10.0); %Lymphocytes 11.4 % (21.0-51.0); %Monocytes 12.5 % (0.0-10.0); %Neutrophils 74.2 % (42.0-75.0); Hemoglobin 8.8 g/dL (14.0-18.0); Mean Corpuscular HGB CONC 31.8 g/dL (32.0-36.0); Mean Corpuscular Hemoglobin 28.8 pg (27.0-31.0); Mean Corpuscular Volume 90.4 fL (78.0-98.0); Mean Platelet Volume 8.4 fL (7.4-10.4); Platelet Count 431 thou/uL (130-400); RBC Distribution Width 14.2 % (11.5-14.5); Red Blood Cell (RBC) Count 3.05 mill/uL (4.70-6.10); White Blood Cell (WBC) Count 18.5 thou/uL (4.8-10.8)
[2020-07-11 04:55] LABS: Anion Gap 18 mmol/L (10-20); BUN (Urea Nitrogen) 42 mg/dL (8.9-20.6); Calc. Creatinine Clearance 14 mL/min (70-130); Calcium 8.3 mg/dL (7.8-10.44); Carbon Dioxide 26 mmol/L (22-29); Chloride 98 mmol/L (98-107); Estimated GFR-MDRD 10; Glucose 109 mg/dL (70-105); Potassium 5.2 mmol/L (3.5-5.1); Sodium 137 mmol/L (136-145)
[2020-07-11] MEDS: Nitroglycerin 2% Ointment 1 INCH/1 GM Packet TOP SCH ×3 (05:19→21:49)
--- NOTE | 2020-07-11 07:51 | PRG ---
DATE OF SERVICE: 07/11/2020 SUBJECTIVE: Mr. Barnett is doing well. No current complaints. He did undergo dialysis yesterday and feels back to baseline. OBJECTIVE: VITAL SIGNS: Blood pressure 135/76, pulse 85, and temperature 98.8. LUNGS: Clear to auscultation. HEART: Regular rate and rhythm. ABDOMEN: Soft, nontender, and nondistended. EXTREMITIES: No edema. IMPRESSION: 1. Elevated troponin. 2. End-stage renal disease. RECOMMENDATIONS: We will await findings on his echo. If LVEF is normal as back in April with LVH, we would likely recommend a noninvasive stress study to assess for any areas of ischemia tomorrow. Otherwise, we would recommend beta-ruthy therapy in addition to aspirin. Job ID: [id number]
--- NOTE | 2020-07-11 08:57 | PRG ---
DATE OF SERVICE: 07/11/2020 SUBJECTIVE: Mr. Barnett is a 34-year-old male with ESRD/chronic renal failure and was admitted due to an elevated troponin I. Cardiology was evaluated this patient. Cardiac echo has been ordered. We are following him up for his management of his maintenance hemodialysis. He is currently undergoing hemodialysis today. No complaints of chest pain or shortness of breath. OBJECTIVE: VITAL SIGNS: Blood pressure 135/76, heart rate 85, respiratory rate 18, temperature 98.8, O2 saturation 98%. GENERAL: He is noted to be awake, alert, comfortable, not in distress. SKIN: Adequate turgor. HEENT: Slightly pale conjunctivae. Anicteric sclerae. NECK: No neck mass. No carotid bruits. No JVD. CHEST: No deformities. LUNGS: Clear breath sounds. No wheezing. No crackles. HEART: Normal sinus rhythm. No murmurs, gallops, or rubs. ABDOMEN: Globular, soft, nontender. No masses. EXTREMITIES: No edema. No deformities. MEDICATIONS: Of July 11, 2020, was reviewed. LABORATORY DATA: Of July 11, 2020, white count 18.5, hemoglobin 8.8. Sodium 137, potassium 5.2, chloride 98, carbon dioxide 26, BUN 42, creatinine 6.71, glucose 109, calcium 8.3. On July 10, 2020, troponin I was 1.8. ASSESSMENT AND PLAN: 1. End-stage renal disease/chronic renal failure, continuing hemodialysis regimen. The patient undergoing a 3-hour hemodialysis today and I will resume him back to a 4-hour hemodialysis tomorrow. 2. Anemia. The patient will be started on his weekly Epogen and we will continue current ferrous sulfate. 3. Check elevated troponin I. Cardiac echo pending. Cardiology is following. 4. Recheck basic CBC in a.m. Job ID: [id number]
[2020-07-11] MEDS: Calcium Acetate 667 MG CAP PO SCH ×3 (10:03→17:59)
[2020-07-11] MEDS ORDERED: Heparin 10,000 UNITS/ 10 ML VIAL ONE (11:29)
[2020-07-11] MEDS: Aspirin Chewable 81 MG TAB PO SCH (12:36)
[2020-07-11] MEDS: Calcitriol 0.25 MCG CAP PO SCH (12:37)
[2020-07-11] MEDS: Ferrous Sulfate 325 MG TAB PO SCH ×2 (12:37→21:49)
[2020-07-11] MEDS: Carvedilol 3.125 MG TAB PO SCH ×2 (12:37→21:49)
[2020-07-11] MEDS: Amlodipine 10 MG TAB PO SCH (12:37)
[2020-07-11] MEDS: Heparin 5,000 UNITS/ML VIAL SC SCH ×2 (12:38→21:49)
[2020-07-11 13:30] LABS: Anion Gap 16 mmol/L (10-20); BUN (Urea Nitrogen) 16 mg/dL (8.9-20.6); Calc. Creatinine Clearance 27 mL/min (70-130); Calcium 9.3 mg/dL (7.8-10.44); Carbon Dioxide 27 mmol/L (22-29); Chloride 97 mmol/L (98-107); Estimated GFR-MDRD 21; Glucose 92 mg/dL (70-105); Potassium 3.8 mmol/L (3.5-5.1); Sodium 136 mmol/L (136-145)
--- NOTE | 2020-07-11 17:16 | PDOC.HOSPP ---
- Subjective Encounter Date: 07/11/20 Encounter Time: 09:00 Subjective: The patient denies chest pain or shortness of breath. He was seen in dialysis today. The patient states he has been on dialysis for the past 8 months. He states he gets dialysis every Friday. He is unfunded. - Objective Vital Signs & Weight: Vital Signs (12 hours) Temp Pulse Resp BP Pulse Ox 07/11/20 15:51 98.2 F 77 18 129/68 94 L 07/11/20 12:31 98.9 F 82 18 163/85 H 99 07/11/20 07:11 98.8 F 85 18 135/76 98 Weight Weight 138 lb 14.612 oz Result Diagrams: 07/11/20 03:54 07/11/20 12:54 Additional Labs: Accuchecks 07/11/20 07/11/20 07/11/20 16:56 10:31 05:06 POC Glucose 156 H 99 117 H 07/10/20 22:20 POC Glucose 123 H Hospitalist ROS - Review of Systems Constitutional: denies: fever, chills - Medication Medications: Active Medications Generic Name Dose Route Start Last Admin Trade Name Freq PRN Reason Stop Dose Admin Amlodipine Besylate 10 mg 07/11/20 09:00 07/11/20 12:37 Norvasc PO 10 mg DAILY LIZZ Administration Aspirin 81 mg 07/11/20 09:00 07/11/20 12:36 Aspirin Chewable PO 81 mg DAILY LIZZ Administration Calcitriol 0.25 mcg 07/11/20 09:00 07/11/20 12:37 Rocaltrol PO 0.25 mcg DAILY LIZZ Administration Calcium Acetate 1,334 mg 07/10/20 17:00 07/11/20 12:37 Phoslo PO 1,334 mg TID- LIZZ Administration Carvedilol 3.125 mg 07/10/20 21:00 07/11/20 12:37 Coreg PO 3.125 mg BID LIZZ Administration Ferrous Sulfate 325 mg 07/10/20 21:00 07/11/20 12:37 Feosol PO 325 mg BID LIZZ Administration Heparin Sodium (Porcine) 5,000 units 07/10/20 21:00 07/11/20 12:38 Heparin SC 5,000 units BID LIZZ Administration Isosorbide Mononitrate 30 mg 07/11/20 09:00 07/11/20 12:37 Imdur Er PO 30 mg DAILY LIZZ Administration Nitroglycerin 0.5 inch 07/10/20 14:00 07/11/20 14:06 Nitro-Bid 2% Ointment TOP 0.5 inch Q8HR LIZZ Administration - Exam General Appearance: NAD, awake alert Eye: PERRL, anicteric sclera ENT: normocephalic atraumatic, no oropharyngeal lesions Neck: no JVD Heart: RRR, no murmur, no gallops, no rubs Respiratory: CTAB, no wheezes, no rales, no ronchi Gastrointestinal: soft, non-tender, non-distended, normal bowel sounds Extremities: no cyanosis, no clubbing, no edema Skin: normal turgor, no lesions, no rashes Neurological: cranial nerve grossly intact, normal sensation to touch, no focal deficits, no new deficit Musculoskeletal: normal tone, normal strength, no muscle wasting Hosp A/P - Plan CTA thorax: no PE, conspicuous bilateral parenchymal opacity possibly pulmonary emani a This is a 34 year old male who presented to the hospital with severe shortness of breath secondary to inadequate dialysis, was found to have elevated troponin #Acute hypoxic respiratory failure - likely from pulmonary edema #Elevated troponin #ESRD - no pneumonia currently -ECHO shows some LVH per cardiology but no ischemia. Cath was offered to the patient but the patient declined. From cardiology standpoint, patient cleared for discharge - patient got dialysis today, but plan for another four hours of dialysis tomorrow per nephrology. Leukocytosis - WBC up to 18.5, asymptomatic. Will check UA - chest Xray shows no pneumonia. COVID is negative Hypertension - continue coreg, amlodipine, imdur - BP 120's Anemia - Hb 8.8, stable DVT prophylaxis: heparin Code status: full code
--- NOTE | 2020-07-11 17:51 | PRG ---
DATE OF SERVICE: 07/11/2020 Mr. Barnett's recent echo suggested mild depressed LVEF of 45% to 50%. He did have a mild LVH present. His hemoglobin is 8.8. It would seem reasonable to proceed with coronary angiography. I feel uncomfortable proceeding with a noninvasive stress study given low hemoglobin. I discussed coronary angiography with Mr. Barnett. Risks include, but not limited to the following; I discussed the procedure in full detail with the patient. The risks of the procedure were also discussed. The risks of the procedure include but are not limited to the following: , stroke, MA, need for emergency surgery, loss of limb, bleeding, and infection, as well as a reaction to the dye causing kidney failure and needing long-term dialysis. I also discussed the risks of PCI to include all of the above including coronary dissection and perforation in addition to acute stent thrombosis and restenosis. All questions about the procedure were answered. Given the above, the patient agreed to proceed with coronary angiography and possible PCI. All questions were answered. The patient does state he urinates 4 to 5 times a day. He is concerned about oliguria or anuria which can occur after angio. After discussing medical therapy versus angiography, he has opted for medical therapy. Again, I do feel his elevated troponin likely due to demand ischemia from volume overload and hypertension. He also has underlying LVH. I have added Imdur in addition to Coreg. Would avoid DAVID inhibitor therapy and ARB. Otherwise, I have no further recommendations. Given medical therapy as the option, would be okay from my standpoint to discharge home. Job ID: [id number]
[2020-07-12 05:06] LABS: #Basophils 0.1 thou/uL (0.0-0.2); #Eosinphils 0.6 thou/uL (0.0-0.7); #Lymphocytes 2.1 thou/uL (1.20-3.40); #Monocytes 1.3 thou/uL (0.11-0.59); %Basophils 0.7 % (0.0-1.0); %Eosinophils 5.6 % (0.0-10.0); %Lymphocytes 19.1 % (21.0-51.0); %Monocytes 11.3 % (0.0-10.0); %Neutrophils 63.3 % (42.0-75.0); Hemoglobin 9.9 g/dL (14.0-18.0); Mean Corpuscular HGB CONC 31.5 g/dL (32.0-36.0); Mean Corpuscular Hemoglobin 28.8 pg (27.0-31.0); Mean Corpuscular Volume 91.5 fL (78.0-98.0); Mean Platelet Volume 8.9 fL (7.4-10.4); Platelet Count 486 thou/uL (130-400); Red Blood Cell (RBC) Count 3.44 mill/uL (4.70-6.10); White Blood Cell (WBC) Count 11.1 thou/uL (4.8-10.8)
[2020-07-12 06:13] LABS: Anion Gap 18 mmol/L (10-20); BUN (Urea Nitrogen) 38 mg/dL (8.9-20.6); Calc. Creatinine Clearance 17 mL/min (70-130); Calcium 9.1 mg/dL (7.8-10.44); Carbon Dioxide 29 mmol/L (22-29); Chloride 98 mmol/L (98-107); Estimated GFR-MDRD 12; Glucose 107 mg/dL (70-105); Potassium 4.5 mmol/L (3.5-5.1); Sodium 140 mmol/L (136-145)
[2020-07-12] MEDS: Nitroglycerin 2% Ointment 1 INCH/1 GM Packet TOP SCH ×3 (06:23→21:15)
[2020-07-12] MEDS ORDERED: Tuberculin PPD 0.1 ML VIAL I-DERMAL SCH (08:45)
--- NOTE | 2020-07-12 09:14 | PRG ---
DATE OF SERVICE: 07/12/2020 SUBJECTIVE: Mr. Barnett is a 34-year-old male with known history of chronic renal failure/ESRD. He initially came for chest pain. He has been evaluated by Cardiology, and the recommendation is conservative management. He has an EF of 45% to 50% on echo. No new complaints today. No chest pain or shortness of breath. OBJECTIVE: VITAL SIGNS: Blood pressure 135/74, heart rate 75, respiratory rate 17, temperature 98.5, O2 saturation 100%. GENERAL: The patient is awake, alert, comfortable, not in distress. SKIN: Adequate turgor. HEENT: He has slightly pale conjunctivae. Anicteric sclerae. No neck mass. No carotid bruits. No JVD. CHEST: No deformities. LUNGS: Clear breath sounds. HEART: Normal sinus rhythm. No murmurs. No gallops. No rubs. ABDOMEN: Globular, soft, nontender. No masses. EXTREMITIES: No edema. No deformities. MEDICATIONS: Medications of July 12, 2020, reviewed. LABORATORY DATA: Laboratories of July 12, 2020: White count 11.1, hemoglobin 9.9. Sodium 140, potassium 4.5, chloride 98, carbon dioxide 29, BUN 38, creatinine 5.62, glucose 107, and calcium 9.1. ASSESSMENT AND PLAN: 1. Anemia. Restart Epogen 7500 units subcu every week. 2. End-stage renal disease/chronic renal failure. Continuing daily dialysis. The patient has now an outpatient placement at the [facility]. 3. Chest pain, resolved. Cardiac echo with an ejection fraction of 45%. Cardiology following. Plan is a conservative management. Consider starting this patient on a low-dose DAVID inhibitor or low-dose losartan. Recheck CBC and basic metabolic panel in a.m. Job ID: [id number]
[2020-07-12] MEDS: Calcium Acetate 667 MG CAP PO SCH ×3 (09:22→18:11)
[2020-07-12 10:32] LABS: HBSAg Index 0.25 S/CO (0-0.99); Hep B Surf Ag Non-Reactive S/CO (NonReactive)
[2020-07-12] MEDS ORDERED: Heparin 10,000 UNITS/ 10 ML VIAL ONE (11:14)
[2020-07-12] MEDS: Calcitriol 0.25 MCG CAP PO SCH (14:09)
[2020-07-12] MEDS: Ferrous Sulfate 325 MG TAB PO SCH ×2 (14:10→21:15)
[2020-07-12] MEDS: Amlodipine 10 MG TAB PO SCH (14:10)
[2020-07-12] MEDS: Heparin 5,000 UNITS/ML VIAL SC SCH ×2 (14:10→21:15)
[2020-07-12] MEDS: Aspirin Chewable 81 MG TAB PO SCH (14:10)
[2020-07-12] MEDS: Carvedilol 3.125 MG TAB PO SCH ×2 (14:11→21:15)
[2020-07-12] MEDS: Losartan 25 MG TAB PO SCH (15:40)
[2020-07-12 16:05] LABS: Bilirubin Negative (Negative); Blood, Urine 1+ (Negative); Clarity Turbid (Clear); Glucose, Urine (Dipstick) 200 mg/dL (Negative); Ketone, Urine Negative (Negative); Leukocyte Negative Leu/uL (Negative); Nitrite Negative (Negative); Protein, Urine (Dipstick) Greater than 600 mg/dL (Neg-Trace); Squamous Epithelial 0-3 HPF (0-3); Urobilinogen Normal mg/dL (Less than 2); pH, Urine 6.5 (5.0-9.0)
[2020-07-12 16:08] LABS: Bacteria/HPF Rare-Few HPF (None Seen)
[2020-07-12 16:09] LABS: Urine Culture Reflex Yes Yes
--- NOTE | 2020-07-12 16:57 | PDOC.HOSPP ---
- Subjective Encounter Date: 07/12/20 Encounter Time: 10:30 Subjective: The patient is doing well. He denies chest pain or shortness of breath. - Objective Vital Signs & Weight: Vital Signs (12 hours) Temp Pulse Resp BP Pulse Ox 07/12/20 15:37 98.5 F 80 17 130/83 100 07/12/20 14:04 80 18 120/78 99 07/12/20 07:46 98.5 F 75 17 135/74 100 Weight Weight 138 lb 14.612 oz I&O: 07/11/20 07/12/20 07/13/20 06:59 06:59 06:59 Intake Total 240 Output Total 3000 Balance -2760 Result Diagrams: 07/12/20 04:20 07/12/20 04:20 Additional Labs: Accuchecks 07/12/20 07/12/20 07/11/20 16:36 05:56 20:06 POC Glucose 188 H 137 H 117 H 07/11/20 16:56 POC Glucose 156 H Hospitalist ROS - Review of Systems Constitutional: denies: fever, chills - Medication Medications: Active Medications Generic Name Dose Route Start Last Admin Trade Name Freq PRN Reason Stop Dose Admin Amlodipine Besylate 10 mg 07/11/20 09:00 07/12/20 14:10 Norvasc PO 10 mg DAILY LIZZ Administration Aspirin 81 mg 07/11/20 09:00 07/12/20 14:10 Aspirin Chewable PO 81 mg DAILY LIZZ Administration Calcitriol 0.25 mcg 07/11/20 09:00 07/12/20 14:09 Rocaltrol PO 0.25 mcg DAILY LIZZ Administration Calcium Acetate 1,334 mg 07/10/20 17:00 07/12/20 14:09 Phoslo PO 1,334 mg TID- LIZZ Administration Carvedilol 3.125 mg 07/10/20 21:00 07/12/20 14:11 Coreg PO 3.125 mg BID LIZZ Administration Ferrous Sulfate 325 mg 07/10/20 21:00 07/12/20 14:10 Feosol PO 325 mg BID LIZZ Administration Heparin Sodium (Porcine) 5,000 units 07/10/20 21:00 07/12/20 14:10 Heparin SC 5,000 units BID LIZZ Administration Isosorbide Mononitrate 30 mg 07/11/20 09:00 07/12/20 14:10 Imdur Er PO 30 mg DAILY LIZZ Administration Losartan Potassium 25 mg 07/12/20 09:00 07/12/20 15:40 Cozaar PO 25 mg DAILY LIZZ Administration Nitroglycerin 0.5 inch 07/10/20 14:00 07/12/20 14:11 Nitro-Bid 2% Ointment TOP Not Given Q8HR LIZZ - Exam General Appearance: NAD, awake alert Eye: PERRL, anicteric sclera ENT: normocephalic atraumatic, no oropharyngeal lesions Neck: no JVD Heart: RRR, no murmur, no gallops, no rubs Respiratory: CTAB, no wheezes, no rales, no ronchi Gastrointestinal: soft, non-tender, non-distended, normal bowel sounds, no palpable masses, no hepatomegaly, no splenomegaly, no bruit Extremities: no cyanosis, no clubbing, no edema Hosp A/P - Plan CTA thorax: no PE, conspicuous bilateral parenchymal opacity possibly pulmonary emani a This is a 34 year old male who presented to the hospital with severe shortness of breath secondary to inadequate dialysis, was found to have elevated troponin #Acute hypoxic respiratory failure - likely from pulmonary edema #Elevated troponin #ESRD - no pneumonia currently -ECHO shows some LVH per cardiology but no ischemia. Cath was offered to the patient but the patient declined. From cardiology standpoint, patient cleared for discharge - patient got dialysis today. Per Dr Farris he is looking for a dialysis chair in [place], wants to keep for one more day - PPD test ordered today Leukocytosis - WBC down to 11, UA showed turbid urine, urine culture pending. Blood cultures negative - chest Xray shows no pneumonia. COVID is negative - afebrile, will hold off antibiotics for now Hypertension - continue coreg, amlodipine, imdur - BP 120's Anemia - Hb 9.9, stable Dispo: discharge possibly tomorrow DVT prophylaxis: heparin Code status: full code
[2020-07-13 04:06] VITALS: BMI 19.3
[2020-07-13 05:01] LABS: Hemoglobin 10.6 g/dL (14.0-18.0); Mean Corpuscular HGB CONC 31.5 g/dL (32.0-36.0); Mean Corpuscular Hemoglobin 29.1 pg (27.0-31.0); Mean Corpuscular Volume 92.5 fL (78.0-98.0); Mean Platelet Volume 8.2 fL (7.4-10.4); Platelet Count 505 thou/uL (130-400); RBC Distribution Width 13.9 % (11.5-14.5); Red Blood Cell (RBC) Count 3.65 mill/uL (4.70-6.10); White Blood Cell (WBC) Count 9.4 thou/uL (4.8-10.8)
[2020-07-13 05:16] LABS: Anion Gap 18 mmol/L (10-20); BUN (Urea Nitrogen) 43 mg/dL (8.9-20.6); Calc. Creatinine Clearance 14 mL/min (70-130); Calcium 9.1 mg/dL (7.8-10.44); Carbon Dioxide 28 mmol/L (22-29); Chloride 95 mmol/L (98-107); Estimated GFR-MDRD 12; Glucose 129 mg/dL (70-105); Potassium 4.1 mmol/L (3.5-5.1); Sodium 137 mmol/L (136-145)
[2020-07-13] MEDS: Nitroglycerin 2% Ointment 1 INCH/1 GM Packet TOP SCH ×2 (05:46→10:33)
[2020-07-13] MEDS: Calcium Acetate 667 MG CAP PO SCH ×2 (09:08→10:33)
[2020-07-13] MEDS: Amlodipine 10 MG TAB PO SCH (09:08)
[2020-07-13] MEDS: Losartan 25 MG TAB PO SCH (09:08)
[2020-07-13] MEDS: Carvedilol 3.125 MG TAB PO SCH (09:08)
[2020-07-13] MEDS: Aspirin Chewable 81 MG TAB PO SCH (09:08)
[2020-07-13] MEDS: Calcitriol 0.25 MCG CAP PO SCH (09:08)
[2020-07-13] MEDS: Ferrous Sulfate 325 MG TAB PO SCH (09:08)
[2020-07-13] MEDS: Heparin 5,000 UNITS/ML VIAL SC SCH (09:09)
--- NOTE | 2020-07-13 09:36 | CON ---
DATE OF CONSULTATION: SUBJECTIVE: Mr. Barnett is a 34-year-old male with chronic renal failure/ESRD. He was initially admitted for chest pain. We were consulted for his maintenance hemodialysis. During his admission here, he was ruled out for PR. He complained of chest pain. He had cardiac echo done, which showed an EF 45%. As per Cardiology recommendation is conservative management. He has also been started on losartan. He voices no new complaints today. REVIEW OF SYSTEMS: No chest pain. No shortness of breath. No nausea. No vomiting. No diarrhea. No constipation. No productive cough. No fever or chills. Excellent appetite, excellent energy level. No gross hematuria. No dysuria. No urinary frequency. MEDICATIONS: Currently, 1. Amlodipine 10 mg daily. 2. Aspirin 81 mg tablet once a day. 3. Calcitriol 0.25 mcg tablet daily. 4. PhosLo 667 mg 2 tablets t.i.d. with meals. 5. Coreg 3.125 mg p.o. b.i.d. 6. Ferrous sulfate 325 mg p.o. b.i.d. 7. Imdur ER 30 mg daily. 8. Losartan 25 mg tablet once a day. PAST MEDICAL HISTORY: 1. Hypertension, recent diagnosis of decreased ejection fraction. 2. ESRD, currently on maintenance hemodialysis, most likely from hypertensive nephropathy. 3. Longstanding hypertension, recent diagnosis of decreased EF. 4. Secondary hyperparathyroidism. PAST SURGICAL HISTORY: Status post cuffed hemodialysis catheter placement, status post AV fistula placement, and status post eye surgery. SOCIAL HISTORY: The patient is . No children. 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 Lives in [place] with his brother. No IV drug abuse. No alcohol. Education, primary grade. ALLERGIES: NONE. TRAUMA: None. IMMUNIZATIONS: Up-to-date. HOSPITALIZATIONS: Please see past medical history. FAMILY HISTORY: No family history of ESRD. PHYSICAL EXAMINATION: VITAL SIGNS: Blood pressure is noted at 114/67, heart rate 72, respiratory rate 20, temperature 98.5, and O2 saturation 96%. GENERAL: The patient is awake, alert, comfortable, not in distress. SKIN: Adequate turgor. HEENT: He has a slightly pale conjunctivae. Anicteric sclerae. NECK: No neck mass. No carotid bruits. No JVD. CHEST: No deformities. LUNGS: Clear breath sounds. HEART: Normal sinus rhythm. No murmur. No gallops. No rubs. ABDOMEN: Globular, soft, and nontender. No masses. EXTREMITIES: No edema. No deformities. LABORATORY DATA: Laboratories of July 13, 2020; white count 9.4, hemoglobin 10.6. Sodium 137, potassium 4.1, chloride 95, carbon dioxide 28, BUN 43, creatinine 5.59, glucose 129, and calcium 9.1. ASSESSMENT AND PLAN: 1. End-stage renal disease, stable, continuing hemodialysis regimen. We did find an outpatient dialysis placement with the patient. This will be at [facility]. We will continue current hemodialysis regimen 3 times a week. 2. Anemia, on weekly Epogen. 3. Decreased EF, currently on losartan and Coreg. Agree with current management. Job ID: [id number]
[2020-07-13] MEDS ORDERED: Heparin 10,000 UNITS/ 10 ML VIAL ONE (13:15)
[2020-07-13 14:12] VITALS: BP 122/68; TEMP 97.8
--- NOTE | 2020-07-13 20:04 | DIS ---
DATE OF ADMISSION: 07/10/2020 DATE OF DISCHARGE: 07/13/2020 DISCHARGE DIAGNOSES: 1. Acute pulmonary edema. 2. Acute systolic heart failure secondary to noncompliance with dialysis and end-stage renal disease. 3. Leukocytosis. 4. Hypertension. 5. Anemia. CONSULTATIONS: 1.Nephrology with Dr. Jason Farris. 2. Cardiology with Dr. Delfin Bernal PROCEDURES: Dialysis. BRIEF HISTORY OF PRESENT ILLNESS: This is a 34-year-old male with past medical history of ESRD, who presented to the emergency room with severe shortness of breath. The patient states that he was getting dialyzed every Friday. Given that he is an illegal immigrant, he is not able to get dialysis on a regular basis. When the patient presented to the ER, his BNP was greater than 7000. His chest x-ray showed signs of pulmonary edema. His creatinine was elevated at 13.93. He had a white count of 17.2. He was admitted for further workup. HOSPITAL COURSE: Acute systolic heart failure with pulmonary edema and ESRD: The patient was admitted to the hospital and underwent dialysis emergently on admission. He underwent dialysis daily from 07/10 to 07/13. His shortness of breath resolved at the time of discharge. He did have an elevated troponin of 1.13, which increased to 1.855. He had no chest pain. Echocardiogram showed an EF of 45% to 50% with moderate MR. Cardiology saw the patient in consultation and offered the patient a cardiac cath, however, the patient refused. Case Management was consulted. Dr. Farris was able to set up for the patient to undergo dialysis at [facility]. They will not be able to do dialysis on him until Friday, therefore he was dialyzed prior to discharge. He will be discharged with Coreg, Lasix, Imdur, and spironolactone for his heart failure. He will follow up with his PCP in a week. DISCHARGE PHYSICAL EXAMINATION: VITAL SIGNS: Temperature 97.8, heart rate 51, respiratory rate 16, O2 saturation 100% on room air, and blood pressure 122/68. GENERAL: The patient is alert, awake, and oriented x3. CVS: Regular rate and rhythm with no murmurs, rubs, or gallops. LUNGS: Clear to auscultation bilaterally. ABDOMEN: Positive bowel sounds. Soft, nontender, and nondistended. EXTREMITIES: No edema. PERTINENT LABORATORY DATA: CBC on 07/13: White count 9.4, hemoglobin 10.6, hematocrit 30.7, and platelet count 505. BMP on 07/12: Unremarkable except for BUN of 38, creatinine of 5.62. LFTs on 07/10: Normal. Troponin I: Peaked at 1.855. CK-MB was 10.3. UA on 07/12: Shows turbid urine, greater than 600 protein, 200 glucose, 1+ blood, 4 to 6 rbc's, 11 to 20 white blood cells. Hepatitis B antigen on 07/12: Nonreactive. COVID PCR on 07/10: Negative. Urine culture on 07/12: Negative. Blood cultures on 07/10: Negative. IMAGING: Chest x-ray on 07/10: Shows small bilateral pleural effusions. CTA thorax on 07/10: He has conspicuous bilateral lung parenchymal opacity reflecting pulmonary edema. DISCHARGE CONDITION: Stable. ACTIVITY: As tolerated. DIET: Renal diet with a 2 L fluid restriction. DISCHARGE MEDICATIONS: 1. Losartan 25 mg p.o. daily. 2. Imdur 30 mg p.o. daily. 3. Furosemide 20 mg p.o. daily. 4. Coreg 3.125 mg p.o. b.i.d. 5. Calcitriol 0.25 mcg p.o. daily. 6. Amlodipine 10 mg p.o. daily. 7. Ferrous sulfate 325 mg p.o. b.i.d. 8. PhosLo 2 caps 667 mg p.o. t.i.d. DISCHARGE INSTRUCTIONS: The patient needs to follow up with his PCP tomorrow or day after to get his PPD test checked. He should follow up with [facility] for his next dialysis session. He should follow a 2 L fluid restriction. Consider getting a repeat BMP in a week. Job ID: [id number] [facility]
[2020-07-14] MEDS ORDERED: READ PPD TEST SITE PO SCH (09:00)
== END 2020-07-13 16:15 | disposition home or self-care (01) | DRG 291 ==
LOC: ERS 08:05 → 2NO 09:42
PROVIDERS: ADMIT Internal Medicine; ATTEND Internal Medicine
PROC: 5A1D70Z Performance of Urinary Filtration, Intermittent, Less than 6 Hours Per Day (ICD-10-PCS; principal; 2020-07-10)
DX: I13.2 Hypertensive heart and chronic kidney disease with heart failure and with stage 5 chronic kidney disease, or end stage renal disease (principal); N18.6 End stage renal disease; J96.01 Acute respiratory failure with hypoxia; I50.21 Acute systolic (congestive) heart failure; N25.81 Secondary hyperparathyroidism of renal origin; I24.8 Other forms of acute ischemic heart disease; E87.5 Hyperkalemia; E83.39 Other disorders of phosphorus metabolism; D63.1 Anemia in chronic kidney disease; Z20.828 Contact with and (suspected) exposure to other viral communicable diseases; E10.22 Type 1 diabetes mellitus with diabetic chronic kidney disease; Z91.15 Patient's noncompliance with renal dialysis; Z99.2 Dependence on renal dialysis; Z98.890 Other specified postprocedural states; I34.0 Nonrheumatic mitral (valve) insufficiency
CPT/HCPCS: 36415; 36416; 71045; 71275; 80048; 80053; 81001; 82553; 83605; 83880; 84484; 85025; 85027; 86580; 87040; 87086; 87340; 90935; 93005; 93306; 94760; G0257; J0456; J0692; J1644; Q9967; U0002

== ENCOUNTER 2021-03-11 17:09 | Emergency (ER) | payer BC ==
[2021-03-11] MEDS ORDERED: Cephalexin 250 MG CAP ONE (18:25)
[2021-03-11] MEDS ORDERED: Sulfameth/Trimethoprim DS 800-160mg TAB ONE (18:25)
== END 2021-03-11 18:33 | disposition home or self-care (01) ==
LOC: ERS 17:09
DX: L97.529 Non-pressure chronic ulcer of other part of left foot with unspecified severity (principal); L03.032 Cellulitis of left toe; E11.621 Type 2 diabetes mellitus with foot ulcer; Z79.899 Other long term (current) drug therapy; I10 Essential (primary) hypertension
CPT/HCPCS: 99283

== ENCOUNTER 2021-03-12 18:37 | Inpatient (IN) | payer BC ==
[2021-03-12 19:41] LABS: #Basophils 0.1 thou/uL (0.0-0.2); #Eosinphils 0.1 thou/uL (0.0-0.7); #Lymphocytes 1.3 thou/uL (1.20-3.40); #Monocytes 1.6 thou/uL (0.11-0.59); #Neutrophils 12.3 thou/uL (1.40-6.50); %Basophils 0.8 % (0.0-1.0); %Eosinophils 0.6 % (0.0-10.0); %Lymphocytes 8.6 % (21.0-51.0); %Monocytes 10.4 % (0.0-10.0); %Neutrophils 79.6 % (42.0-75.0); Mean Corpuscular Hemoglobin 29.9 pg (27.0-31.0); Mean Corpuscular Volume 93.5 fL (78.0-98.0); Mean Platelet Volume 7.2 fL (7.4-10.4); Platelet Count 608 thou/uL (130-400); RBC Distribution Width 15.4 % (11.5-14.5); White Blood Cell (WBC) Count 15.5 thou/uL (4.8-10.8)
[2021-03-12 20:00] LABS: ALT (SGPT) 9 U/L (8-55); AST (SGOT) 14 U/L (5-34); Albumin 4.8 g/dL (3.5-5.0); Alkaline Phosphatase 140 U/L (40-110); Anion Gap 21 mmol/L (10-20); BUN (Urea Nitrogen) 23 mg/dL (8.9-20.6); Bilirubin, Total 0.6 mg/dL (0.2-1.2); Calc. Creatinine Clearance 0 mL/min (70-130); Carbon Dioxide 27 mmol/L (22-29); Chloride 96 mmol/L (98-107); Globulin 5.2 g/dL (2.4-3.5); Glucose 94 mg/dL (70-105); Potassium 5.2 mmol/L (3.5-5.1); Sodium 139 mmol/L (136-145)
[2021-03-12] MEDS ORDERED: Cefepime 2 GM VIAL ONE (22:24)
[2021-03-12 22:25] LABS: INR-International Normal Ratio 1.1; PTT 32.9 sec (22.9-36.1); Prothrombin Time 14.3 sec (12.0-14.7)
[2021-03-12] MEDS ORDERED: Ondansetron PF 4 MG/2 ML Vial IVP PRN (23:49)
[2021-03-12] MEDS ORDERED: Morphine 4 MG/ML VIAL ONE (23:50)
[2021-03-12] MEDS ORDERED: Ondansetron PF 4 MG/2 ML Vial ONE (23:51)
[2021-03-12] MEDS ORDERED: hydrALAZINE 20 MG/ML VIAL SLOW IVP PRN (23:54)
[2021-03-12] MEDS ORDERED: Vancomycin 1 GM in Premix Bag 1 BAG IVPB SCH (23:59)
[2021-03-13] MEDS ORDERED: Vancomycin HCl 1 GM in Sodium Chloride 0.9% 250 ML 250 ML IVPB SCH (00:15)
[2021-03-13 06:24] LABS: Band 3 % (5-11); Eosinophils 1 % (0-10); Hemoglobin 12.2 g/dL (14.0-18.0); Lymphocytes 12 % (21-51); MDiff Complete? YES; Mean Corpuscular HGB CONC 32.1 g/dL (32.0-36.0); Mean Corpuscular Hemoglobin 30.3 pg (27.0-31.0); Mean Corpuscular Volume 94.3 fL (78.0-98.0); Mean Platelet Volume 7.4 fL (7.4-10.4); Monocytes 11 % (0-10); Neutrophil 72 % (42-75); Platelet Count 538 thou/uL (130-400); Platelet Morphology Comment Appears Increased; RBC Distribution Width 15.2 % (11.5-14.5); Red Blood Cell (RBC) Count 4.02 mill/uL (4.70-6.10); White Blood Cell (WBC) Count 16.3 thou/uL (4.8-10.8)
[2021-03-13 06:41] LABS: ALT (SGPT) 8 U/L (8-55); AST (SGOT) 10 U/L (5-34); Albumin 3.9 g/dL (3.5-5.0); Alkaline Phosphatase 105 U/L (40-110); Anion Gap 17 mmol/L (10-20); BUN (Urea Nitrogen) 32 mg/dL (8.9-20.6); Bilirubin, Total 0.5 mg/dL (0.2-1.2); Calc. Creatinine Clearance 11 mL/min (70-130); Calcium 8.8 mg/dL (7.8-10.44); Carbon Dioxide 26 mmol/L (22-29); Chloride 98 mmol/L (98-107); Globulin 4.3 g/dL (2.4-3.5); Glucose 74 mg/dL (70-105); Protein, Total 8.2 g/dL (6.0-8.3); Sodium 136 mmol/L (136-145)
[2021-03-13] MEDS: Calcium Acetate 667 MG CAP PO SCH ×3 (08:08→17:04)
[2021-03-13] MEDS: Amlodipine 10 MG TAB PO SCH (08:08)
[2021-03-13] MEDS: Heparin 5,000 UNITS/ML VIAL SC SCH ×2 (08:09→21:54)
[2021-03-13 11:34] LABS: SARS-CoV-2 PCR by NAA Not Detected (NotDetected)
[2021-03-13] MEDS: Acetaminophen 325 MG TAB PO PRN ×2 (18:17→21:55)
[2021-03-13] MEDS: Ferrous Sulfate 325 MG TAB PO SCH (21:54)
[2021-03-13] MEDS: Carvedilol 3.125 MG TAB PO SCH (21:54)
[2021-03-13] MEDS ORDERED: Cefepime 0.5 GM in Sodium Chloride 0.9% 100 ML IVPB SCH (22:00)
[2021-03-14 06:24] LABS: #Basophils 0.1 thou/uL (0.0-0.2); #Eosinphils 0.4 thou/uL (0.0-0.7); #Lymphocytes 1.9 thou/uL (1.20-3.40); #Monocytes 2.3 thou/uL (0.11-0.59); #Neutrophils 10.9 thou/uL (1.40-6.50); %Basophils 0.8 % (0.0-1.0); %Eosinophils 2.7 % (0.0-10.0); %Lymphocytes 12.4 % (21.0-51.0); %Monocytes 14.9 % (0.0-10.0); %Neutrophils 69.3 % (42.0-75.0); Mean Corpuscular HGB CONC 31.5 g/dL (32.0-36.0); Mean Corpuscular Hemoglobin 30.1 pg (27.0-31.0); Mean Corpuscular Volume 95.5 fL (78.0-98.0); Mean Platelet Volume 7.3 fL (7.4-10.4); Platelet Count 550 thou/uL (130-400); Red Blood Cell (RBC) Count 3.98 mill/uL (4.70-6.10); White Blood Cell (WBC) Count 15.7 thou/uL (4.8-10.8)
[2021-03-14 06:44] LABS: Anion Gap 20 mmol/L (10-20); BUN (Urea Nitrogen) 54 mg/dL (8.9-20.6); Calc. Creatinine Clearance 9 mL/min (70-130); Calcium 8.5 mg/dL (7.8-10.44); Carbon Dioxide 25 mmol/L (22-29); Chloride 98 mmol/L (98-107); Glucose 82 mg/dL (70-105); Potassium 5.1 mmol/L (3.5-5.1); Sodium 138 mmol/L (136-145)
[2021-03-14] MEDS: Heparin 5,000 UNITS/ML VIAL SC SCH ×2 (08:20→21:45)
[2021-03-14] MEDS: Ferrous Sulfate 325 MG TAB PO SCH ×2 (08:21→20:58)
[2021-03-14] MEDS: Calcitriol 0.25 MCG CAP PO SCH (08:21)
[2021-03-14] MEDS: Amlodipine 10 MG TAB PO SCH (08:21)
[2021-03-14] MEDS: Calcium Acetate 667 MG CAP PO SCH ×3 (08:21→17:27)
[2021-03-14] MEDS: Carvedilol 3.125 MG TAB PO SCH ×2 (08:21→20:58)
[2021-03-14] MEDS ORDERED: Vancomycin HCl 750 MG in Sodium Chloride 0.9% 250 ML 250 ML IVPB SCH (12:15)
[2021-03-14] MEDS ORDERED: VANCOMYCIN 1.25 GM/250 ML BAG 1.25 GM in Premix Bag 1 BAG IVPB SCH (12:15)
[2021-03-14] MEDS ORDERED: HOLD VANCOMYCIN FOR LEVEL >20 FS SCH (12:15)
[2021-03-14] MEDS ORDERED: Vancomycin 1 GM in Premix Bag 1 BAG IVPB SCH (12:15)
[2021-03-14] MEDS ORDERED: Vancomycin HCl 500 MG in Sodium Chloride 0.9% 100 ML IVPB SCH (12:15)
[2021-03-14] MEDS: HYDROcodone/Acetaminophen 5/325 mg Tablet PO PRN (20:59)
[2021-03-14] MEDS: Rosuvastatin 5 MG TAB PO SCH (21:43)
[2021-03-14] MEDS: Cefepime 0.5 GM, Admixture Fee 1 EACH in Sodium Chloride 0.9% 100 ML IVPB SCH (22:25)
[2021-03-15] MEDS: HYDROcodone/Acetaminophen 5/325 mg Tablet PO PRN ×3 (03:35→20:44)
[2021-03-15 06:22] LABS: Anion Gap 17 mmol/L (10-20); BUN (Urea Nitrogen) 31 mg/dL (8.9-20.6); Calc. Creatinine Clearance 13 mL/min (70-130); Calcium 8.6 mg/dL (7.8-10.44); Carbon Dioxide 27 mmol/L (22-29); Chloride 96 mmol/L (98-107); Glucose 88 mg/dL (70-105); Potassium 4.4 mmol/L (3.5-5.1); Sodium 136 mmol/L (136-145)
[2021-03-15 06:43] LABS: Band 3 % (5-11); Eosinophils 3 % (0-10); Hemoglobin 11.5 g/dL (14.0-18.0); Lymphocytes 15 % (21-51); MDiff Complete? YES; Mean Corpuscular HGB CONC 30.3 g/dL (32.0-36.0); Mean Corpuscular Hemoglobin 28.9 pg (27.0-31.0); Mean Corpuscular Volume 95.5 fL (78.0-98.0); Mean Platelet Volume 7.1 fL (7.4-10.4); Monocytes 13 % (0-10); Neutrophil 66 % (42-75); Platelet Count 554 thou/uL (130-400); Platelet Morphology Comment Appears Increased; RBC Distribution Width 14.9 % (11.5-14.5); Red Blood Cell (RBC) Count 3.99 mill/uL (4.70-6.10); White Blood Cell (WBC) Count 15.4 thou/uL (4.8-10.8)
[2021-03-15] MEDS: Amlodipine 10 MG TAB PO SCH (07:47)
[2021-03-15] MEDS: Heparin 5,000 UNITS/ML VIAL SC SCH ×2 (07:47→20:47)
[2021-03-15] MEDS: Ferrous Sulfate 325 MG TAB PO SCH ×2 (07:48→20:45)
[2021-03-15] MEDS: Carvedilol 3.125 MG TAB PO SCH ×2 (07:48→20:45)
[2021-03-15] MEDS: Calcitriol 0.25 MCG CAP PO SCH (07:48)
[2021-03-15] MEDS: Calcium Acetate 667 MG CAP PO SCH ×3 (07:48→16:40)
[2021-03-15 09:30] LABS: Vancomycin, Random 13.8 ug/mL (See Comment)
[2021-03-15] MEDS: Rosuvastatin 5 MG TAB PO SCH (20:45)
[2021-03-15] MEDS: Cefepime 0.5 GM, Admixture Fee 1 EACH in Sodium Chloride 0.9% 100 ML IVPB SCH (21:37)
[2021-03-15] MEDS: Morphine 4 MG/ML VIAL SLOW IVP PRN (21:40)
[2021-03-16] MEDS: Carvedilol 3.125 MG TAB PO SCH ×2 (05:23→22:17)
[2021-03-16 07:14] LABS: Anion Gap 17 mmol/L (10-20); BUN (Urea Nitrogen) 45 mg/dL (8.9-20.6); Calc. Creatinine Clearance 10 mL/min (70-130); Calcium 8.6 mg/dL (7.8-10.44); Carbon Dioxide 30 mmol/L (22-29); Chloride 95 mmol/L (98-107); Glucose 125 mg/dL (70-105); Potassium 4.5 mmol/L (3.5-5.1); Sodium 137 mmol/L (136-145)
[2021-03-16] MEDS: Calcitriol 0.25 MCG CAP PO SCH (07:36)
[2021-03-16] MEDS: Calcium Acetate 667 MG CAP PO SCH ×3 (07:36→16:43)
[2021-03-16] MEDS: Ferrous Sulfate 325 MG TAB PO SCH ×2 (07:36→22:17)
[2021-03-16] MEDS: Heparin 5,000 UNITS/ML VIAL SC SCH ×2 (07:36→22:17)
[2021-03-16] MEDS: Amlodipine 10 MG TAB PO SCH (07:36)
[2021-03-16 09:00] LABS: Band 1 % (5-11); Eosinophils 3 % (0-10); Hemoglobin 11.5 g/dL (14.0-18.0); Hypochromia SLIGHT = 6-15 cells (100X) (0-5/hpf); Lymphocytes 9 % (21-51); MDiff Complete? YES; Mean Corpuscular HGB CONC 30.8 g/dL (32.0-36.0); Mean Corpuscular Hemoglobin 29.2 pg (27.0-31.0); Mean Corpuscular Volume 94.8 fL (78.0-98.0); Mean Platelet Volume 7.1 fL (7.4-10.4); Monocytes 10 % (0-10); Neutrophil 70 % (42-75); Platelet Count 567 thou/uL (130-400); Platelet Morphology Comment Appears Increased; RBC Distribution Width 14.7 % (11.5-14.5); Reactive Lymphocytes 2 % (0-10); Red Blood Cell (RBC) Count 3.94 mill/uL (4.70-6.10); White Blood Cell (WBC) Count 14.2 thou/uL (4.8-10.8)
[2021-03-16] MEDS ORDERED: Fentanyl 100 MCG/2 ML VIAL ONE (13:08)
[2021-03-16] MEDS ORDERED: Propofol 500 MG/50 ML VIAL ONE (13:08)
[2021-03-16] MEDS ORDERED: Lidocaine 2% Jelly 5 ML TUBE ONE (13:08)
[2021-03-16] MEDS ORDERED: Bacitracin Zinc Ointment 30 gm TUBE ONE (13:12)
[2021-03-16] MEDS ORDERED: NEOMYCIN-POLYMYXIN-HC EAR SUSP 200 DROP/10 ML BOT ONE (13:12)
[2021-03-16] MEDS ORDERED: Lidocaine 2% PF 5 ML VIAL ONE (13:12)
[2021-03-16] MEDS ORDERED: Bupivacaine PF 0.5% 30 ML VIAL ONE (13:12)
[2021-03-16] MEDS ORDERED: Neomycin-Polymyxin 1 ML AMP ONE (13:14)
[2021-03-16] MEDS ORDERED: Gentamicin 80 MG/2 ML VIAL ONE (13:19)
[2021-03-16] MEDS ORDERED: PROPOFOL 200 MG/20 ML VIAL ONE (13:47)
[2021-03-16] MEDS ORDERED: Promethazine HCl 25 MG/ML VIAL SLOW IVP PRN ×2 (14:22→14:49)
[2021-03-16] MEDS ORDERED: Promethazine HCl 25 MG/ML VIAL IM PRN ×2 (14:22→14:49)
[2021-03-16] MEDS ORDERED: Ondansetron HCl/PF 4 MG/2 ML Vial IVP PRN ×2 (14:22→14:49)
[2021-03-16] MEDS ORDERED: Meperidine HCl/PF 25 MG/ML VIAL SLOW IVP PRN (14:49)
[2021-03-16 16:59] LABS: Vancomycin, Random 8.7 ug/mL (See Comment)
[2021-03-16] MEDS: Rosuvastatin 5 MG TAB PO SCH (22:16)
[2021-03-16] MEDS: Cefepime 0.5 GM, Admixture Fee 1 EACH in Sodium Chloride 0.9% 100 ML IVPB SCH (22:16)
[2021-03-16] MEDS: HYDROcodone/Acetaminophen 5/325 mg Tablet PO PRN (22:26)
[2021-03-17] MEDS: HYDROcodone/Acetaminophen 5/325 mg Tablet PO PRN ×3 (05:33→21:52)
[2021-03-17 05:53] LABS: Anion Gap 14 mmol/L (10-20); BUN (Urea Nitrogen) 27 mg/dL (8.9-20.6); Calc. Creatinine Clearance 14 mL/min (70-130); Calcium 8.8 mg/dL (7.8-10.44); Carbon Dioxide 31 mmol/L (22-29); Chloride 96 mmol/L (98-107); Glucose 114 mg/dL (70-105); Potassium 4.4 mmol/L (3.5-5.1); Sodium 137 mmol/L (136-145)
[2021-03-17 06:10] LABS: Hemoglobin 11.8 g/dL (14.0-18.0); Mean Corpuscular HGB CONC 30.5 g/dL (32.0-36.0); Mean Corpuscular Volume 95.1 fL (78.0-98.0); Platelet Count 548 thou/uL (130-400); RBC Distribution Width 14.8 % (11.5-14.5); Red Blood Cell (RBC) Count 4.08 mill/uL (4.70-6.10); White Blood Cell (WBC) Count 13.3 thou/uL (4.8-10.8)
[2021-03-17 07:01] LABS: Band 1 % (5-11); Eosinophils 2 % (0-10); Lymphocytes 12 % (21-51); MDiff Complete? YES; Monocytes 18 % (0-10); Neutrophil 67 % (42-75)
[2021-03-17] MEDS: Calcium Acetate 667 MG CAP PO SCH ×3 (08:42→17:32)
[2021-03-17] MEDS: Amlodipine 10 MG TAB PO SCH (08:42)
[2021-03-17] MEDS: Calcitriol 0.25 MCG CAP PO SCH (08:43)
[2021-03-17] MEDS: Carvedilol 3.125 MG TAB PO SCH ×2 (08:43→20:42)
[2021-03-17] MEDS: Ferrous Sulfate 325 MG TAB PO SCH ×2 (08:43→20:42)
[2021-03-17] MEDS: Heparin 5,000 UNITS/ML VIAL SC SCH ×2 (08:43→20:43)
[2021-03-17] MEDS: Morphine 4 MG/ML VIAL SLOW IVP PRN (20:40)
[2021-03-17] MEDS: Rosuvastatin 5 MG TAB PO SCH (20:42)
[2021-03-17] MEDS: Cefepime 0.5 GM, Admixture Fee 1 EACH in Sodium Chloride 0.9% 100 ML IVPB SCH (20:43)
[2021-03-18] MEDS: HYDROcodone/Acetaminophen 5/325 mg Tablet PO PRN ×3 (05:52→17:23)
[2021-03-18 06:30] LABS: #Basophils 0.2 thou/uL (0.0-0.2); #Eosinphils 0.6 thou/uL (0.0-0.7); #Lymphocytes 3.4 thou/uL (1.20-3.40); #Monocytes 2.4 thou/uL (0.11-0.59); #Neutrophils 10.4 thou/uL (1.40-6.50); %Basophils 1.2 % (0.0-1.0); %Eosinophils 3.8 % (0.0-10.0); %Lymphocytes 19.8 % (21.0-51.0); %Neutrophils 61.2 % (42.0-75.0); Hemoglobin 11.1 g/dL (14.0-18.0); Mean Corpuscular HGB CONC 31.1 g/dL (32.0-36.0); Mean Corpuscular Hemoglobin 29.6 pg (27.0-31.0); Mean Corpuscular Volume 95.2 fL (78.0-98.0); Mean Platelet Volume 7.2 fL (7.4-10.4); Platelet Count 582 thou/uL (130-400); RBC Distribution Width 14.7 % (11.5-14.5); Red Blood Cell (RBC) Count 3.76 mill/uL (4.70-6.10)
[2021-03-18 06:51] LABS: Anion Gap 19 mmol/L (10-20); BUN (Urea Nitrogen) 44 mg/dL (8.9-20.6); Calc. Creatinine Clearance 10 mL/min (70-130); Calcium 8.8 mg/dL (7.8-10.44); Carbon Dioxide 27 mmol/L (22-29); Chloride 97 mmol/L (98-107); Glucose 84 mg/dL (70-105); Potassium 4.9 mmol/L (3.5-5.1); Sodium 138 mmol/L (136-145)
[2021-03-18] MEDS: Carvedilol 3.125 MG TAB PO SCH ×2 (07:54→20:09)
[2021-03-18] MEDS: Calcium Acetate 667 MG CAP PO SCH ×3 (07:54→17:23)
[2021-03-18] MEDS: Ferrous Sulfate 325 MG TAB PO SCH ×2 (07:55→20:09)
[2021-03-18] MEDS: Calcitriol 0.25 MCG CAP PO SCH (07:55)
[2021-03-18] MEDS: Heparin 5,000 UNITS/ML VIAL SC SCH ×2 (07:55→20:11)
[2021-03-18] MEDS: Amlodipine 10 MG TAB PO SCH (07:55)
[2021-03-18] MEDS: Rosuvastatin 5 MG TAB PO SCH (20:09)
[2021-03-18] MEDS: Cefepime 0.5 GM, Admixture Fee 1 EACH in Sodium Chloride 0.9% 100 ML IVPB SCH (21:45)
[2021-03-19 07:09] LABS: Anion Gap 21 mmol/L (10-20); BUN (Urea Nitrogen) 63 mg/dL (8.9-20.6); Calc. Creatinine Clearance 8 mL/min (70-130); Calcium 9.6 mg/dL (7.8-10.44); Carbon Dioxide 26 mmol/L (22-29); Chloride 96 mmol/L (98-107); Glucose 86 mg/dL (70-105); Potassium 5.2 mmol/L (3.5-5.1); Sodium 138 mmol/L (136-145)
[2021-03-19] MEDS: HYDROcodone/Acetaminophen 5/325 mg Tablet PO PRN ×2 (08:14→17:07)
[2021-03-19 08:30] LABS: Hemoglobin 11.9 g/dL (14.0-18.0); Mean Corpuscular HGB CONC 31.9 g/dL (32.0-36.0); Mean Corpuscular Hemoglobin 29.9 pg (27.0-31.0); Mean Corpuscular Volume 93.7 fL (78.0-98.0); Mean Platelet Volume 7.2 fL (7.4-10.4); Platelet Count 650 thou/uL (130-400); RBC Distribution Width 14.6 % (11.5-14.5); Red Blood Cell (RBC) Count 3.97 mill/uL (4.70-6.10); White Blood Cell (WBC) Count 17.5 thou/uL (4.8-10.8)
[2021-03-19 08:33] LABS: #Basophils 0.1 thou/uL (0.0-0.2); #Eosinphils 0.7 thou/uL (0.0-0.7); #Lymphocytes 3.3 thou/uL (1.20-3.40); #Monocytes 2.5 thou/uL (0.11-0.59); #Neutrophils 10.9 thou/uL (1.40-6.50); %Basophils 0.7 % (0.0-1.0); %Eosinophils 4.1 % (0.0-10.0); %Lymphocytes 18.9 % (21.0-51.0); %Monocytes 14.2 % (0.0-10.0); %Neutrophils 62.2 % (42.0-75.0); Band 1 % (5-11); Eosinophils 6 % (0-10); Lymphocytes 23 % (21-51); MDiff Complete? YES; Monocytes 8 % (0-10); Neutrophil 62 % (42-75); Platelet Morphology Comment Appears Increased; Polychromasia SLIGHT = 2-3 cells (100X) (0-2/hpf)
[2021-03-19 09:26] LABS: Vancomycin, Random 6.7 ug/mL (See Comment)
[2021-03-19] MEDS: Calcium Acetate 667 MG CAP PO SCH ×3 (09:39→17:06)
[2021-03-19] MEDS: Amlodipine 10 MG TAB PO SCH (09:39)
[2021-03-19] MEDS: Carvedilol 3.125 MG TAB PO SCH ×2 (09:40→20:26)
[2021-03-19] MEDS: Aspirin 81 mg Enteric Coated Tablet PO SCH (14:28)
[2021-03-19] MEDS: Ferrous Sulfate 325 MG TAB PO SCH ×2 (14:28→20:26)
[2021-03-19] MEDS: Heparin 5,000 UNITS/ML VIAL SC SCH ×2 (14:29→20:27)
[2021-03-19] MEDS: Calcitriol 0.25 MCG CAP PO SCH (14:29)
[2021-03-19] MEDS: Rosuvastatin 5 MG TAB PO SCH (20:26)
[2021-03-19] MEDS: Cefepime 0.5 GM, Admixture Fee 1 EACH in Sodium Chloride 0.9% 100 ML IVPB SCH (21:54)
[2021-03-20] MEDS: HYDROcodone/Acetaminophen 5/325 mg Tablet PO PRN ×2 (04:31→22:16)
[2021-03-20 06:22] LABS: #Basophils 0.1 thou/uL (0.0-0.2); #Eosinphils 0.6 thou/uL (0.0-0.7); #Lymphocytes 2.5 thou/uL (1.20-3.40); #Monocytes 2.3 thou/uL (0.11-0.59); %Basophils 0.9 % (0.0-1.0); %Eosinophils 3.4 % (0.0-10.0); %Lymphocytes 15.2 % (21.0-51.0); %Neutrophils 66.5 % (42.0-75.0); Mean Corpuscular HGB CONC 30.7 g/dL (32.0-36.0); Mean Corpuscular Hemoglobin 29.1 pg (27.0-31.0); Mean Corpuscular Volume 94.7 fL (78.0-98.0); Platelet Count 667 thou/uL (130-400); RBC Distribution Width 14.8 % (11.5-14.5); Red Blood Cell (RBC) Count 3.79 mill/uL (4.70-6.10); White Blood Cell (WBC) Count 16.5 thou/uL (4.8-10.8)
[2021-03-20 06:44] LABS: Anion Gap 18 mmol/L (10-20); BUN (Urea Nitrogen) 38 mg/dL (8.9-20.6); Calc. Creatinine Clearance 12 mL/min (70-130); Calcium 9.2 mg/dL (7.8-10.44); Carbon Dioxide 28 mmol/L (22-29); Chloride 96 mmol/L (98-107); Glucose 99 mg/dL (70-105); Sodium 137 mmol/L (136-145)
[2021-03-20] MEDS: Calcium Acetate 667 MG CAP PO SCH ×3 (08:44→18:17)
[2021-03-20] MEDS: Ferrous Sulfate 325 MG TAB PO SCH ×2 (08:45→22:16)
[2021-03-20] MEDS: Amlodipine 10 MG TAB PO SCH (08:45)
[2021-03-20] MEDS: Aspirin 81 mg Enteric Coated Tablet PO SCH (08:45)
[2021-03-20] MEDS: Carvedilol 3.125 MG TAB PO SCH ×2 (08:45→22:16)
[2021-03-20] MEDS: Calcitriol 0.25 MCG CAP PO SCH (08:45)
[2021-03-20] MEDS: Heparin 5,000 UNITS/ML VIAL SC SCH ×2 (08:46→22:16)
[2021-03-20] MEDS: Bisacodyl 5 MG TAB PO PRN (18:17)
[2021-03-20] MEDS: Rosuvastatin 5 MG TAB PO SCH (22:15)
[2021-03-20] MEDS: Cefepime 0.5 GM, Admixture Fee 1 EACH in Sodium Chloride 0.9% 100 ML IVPB SCH (22:16)
[2021-03-20] MEDS: Morphine 4 MG/ML VIAL SLOW IVP PRN (23:27)
[2021-03-21 06:19] LABS: #Basophils 0.2 thou/uL (0.0-0.2); #Eosinphils 0.4 thou/uL (0.0-0.7); #Monocytes 2.1 thou/uL (0.11-0.59); #Neutrophils 11.6 thou/uL (1.40-6.50); %Basophils 1.1 % (0.0-1.0); %Eosinophils 2.4 % (0.0-10.0); %Monocytes 12.4 % (0.0-10.0); Mean Corpuscular HGB CONC 30.2 g/dL (32.0-36.0); Mean Corpuscular Volume 92.8 fL (78.0-98.0); Mean Platelet Volume 7.2 fL (7.4-10.4); Platelet Count 722 thou/uL (130-400); RBC Distribution Width 14.6 % (11.5-14.5); Red Blood Cell (RBC) Count 3.91 mill/uL (4.70-6.10); White Blood Cell (WBC) Count 17.3 thou/uL (4.8-10.8)
[2021-03-21 06:38] LABS: Anion Gap 18 mmol/L (10-20); BUN (Urea Nitrogen) 63 mg/dL (8.9-20.6); Calc. Creatinine Clearance 10 mL/min (70-130); Calcium 9.7 mg/dL (7.8-10.44); Carbon Dioxide 27 mmol/L (22-29); Chloride 96 mmol/L (98-107); Glucose 92 mg/dL (70-105); Potassium 4.9 mmol/L (3.5-5.1); Sodium 136 mmol/L (136-145)
[2021-03-21] MEDS: Calcium Acetate 667 MG CAP PO SCH ×3 (08:11→18:04)
[2021-03-21] MEDS: Amlodipine 10 MG TAB PO SCH ×2 (08:32→13:04)
[2021-03-21 08:56] LABS: Vancomycin, Random 3.9 ug/mL (See Comment)
[2021-03-21] MEDS ORDERED: VANCOMYCIN 1.25 GM/250 ML BAG 1.25 GM in Premix Bag 1 BAG IVPB SCH (09:30)
[2021-03-21] MEDS: Calcitriol 0.25 MCG CAP PO SCH (13:03)
[2021-03-21] MEDS: Aspirin 81 mg Enteric Coated Tablet PO SCH (13:03)
[2021-03-21] MEDS: Ferrous Sulfate 325 MG TAB PO SCH ×2 (13:04→20:07)
[2021-03-21] MEDS: Carvedilol 3.125 MG TAB PO SCH ×2 (13:04→20:06)
[2021-03-21] MEDS: Heparin 5,000 UNITS/ML VIAL SC SCH ×2 (13:13→20:08)
[2021-03-21] MEDS: VANCOMYCIN 1.25 GM/250 ML BAG 1.25 GM in Premix Bag 1 BAG IVPB SCH ×2 (13:52→15:08)
[2021-03-21] MEDS: HYDROcodone/Acetaminophen 5/325 mg Tablet PO PRN (20:04)
[2021-03-21] MEDS: Rosuvastatin 5 MG TAB PO SCH (20:05)
[2021-03-21] MEDS: Cipro 250 MG TAB PO SCH (20:05)
[2021-03-21] MEDS: metroNIDAZOLE 500 MG TAB PO SCH (20:05)
[2021-03-21] MEDS ORDERED: Morphine 4 MG/ML VIAL SLOW IVP PRN (21:36)
[2021-03-21] MEDS: Cefepime 0.5 GM, Admixture Fee 1 EACH in Sodium Chloride 0.9% 100 ML IVPB SCH (22:07)
[2021-03-22] MEDS: HYDROcodone/Acetaminophen 5/325 mg Tablet PO PRN ×4 (01:36→20:17)
[2021-03-22] MEDS: Cipro 250 MG TAB PO SCH ×2 (06:17→19:29)
[2021-03-22 06:19] LABS: Anion Gap 22 mmol/L (10-20); BUN (Urea Nitrogen) 37 mg/dL (8.9-20.6); Calc. Creatinine Clearance 14 mL/min (70-130); Calcium 9.7 mg/dL (7.8-10.44); Carbon Dioxide 24 mmol/L (22-29); Chloride 95 mmol/L (98-107); Glucose 87 mg/dL (70-105); Potassium 4.9 mmol/L (3.5-5.1); Sodium 136 mmol/L (136-145)
[2021-03-22 06:27] LABS: #Basophils 0.1 thou/uL (0.0-0.2); #Eosinphils 0.6 thou/uL (0.0-0.7); #Monocytes 2.1 thou/uL (0.11-0.59); #Neutrophils 11.2 thou/uL (1.40-6.50); %Basophils 0.6 % (0.0-1.0); %Eosinophils 3.5 % (0.0-10.0); %Lymphocytes 17.8 % (21.0-51.0); Hemoglobin 11.6 g/dL (14.0-18.0); Mean Corpuscular Hemoglobin 29.7 pg (27.0-31.0); Mean Corpuscular Volume 95.9 fL (78.0-98.0); Mean Platelet Volume 7.3 fL (7.4-10.4); Platelet Count 780 thou/uL (130-400); RBC Distribution Width 14.8 % (11.5-14.5); Red Blood Cell (RBC) Count 3.91 mill/uL (4.70-6.10)
[2021-03-22] MEDS: Ferrous Sulfate 325 MG TAB PO SCH ×2 (08:25→20:18)
[2021-03-22] MEDS: Aspirin 81 mg Enteric Coated Tablet PO SCH (08:25)
[2021-03-22] MEDS: Carvedilol 3.125 MG TAB PO SCH ×2 (08:25→20:18)
[2021-03-22] MEDS: Calcitriol 0.25 MCG CAP PO SCH (08:25)
[2021-03-22] MEDS: metroNIDAZOLE 500 MG TAB PO SCH ×3 (08:25→20:16)
[2021-03-22] MEDS: Amlodipine 10 MG TAB PO SCH (08:25)
[2021-03-22] MEDS: Calcium Acetate 667 MG CAP PO SCH ×3 (08:26→16:36)
[2021-03-22] MEDS: Heparin 5,000 UNITS/ML VIAL SC SCH ×2 (08:26→20:18)
[2021-03-22] MEDS ORDERED: Polyethylene Glycol 3350 17 GM Packet PO PRN (12:26)
[2021-03-22] MEDS ORDERED: Milk Of Magnesia 30 ML UDCUP PO SCH (12:30)
[2021-03-22] MEDS: Bisacodyl 5 MG TAB PO PRN (13:08)
[2021-03-22] MEDS: Senokot S 8.6-50 MG TAB PO SCH (20:16)
[2021-03-22] MEDS: Rosuvastatin 5 MG TAB PO SCH (20:18)
[2021-03-22] MEDS: Cefepime 0.5 GM, Admixture Fee 1 EACH in Sodium Chloride 0.9% 100 ML IVPB SCH (21:26)
[2021-03-23] MEDS: Acetaminophen 325 MG TAB PO PRN ×3 (05:08→22:39)
[2021-03-23] MEDS: Cipro 250 MG TAB PO SCH ×2 (05:08→20:17)
[2021-03-23 06:06] LABS: #Basophils 0.2 thou/uL (0.0-0.2); #Eosinphils 0.7 thou/uL (0.0-0.7); #Lymphocytes 3.3 thou/uL (1.20-3.40); #Monocytes 2.5 thou/uL (0.11-0.59); #Neutrophils 12.6 thou/uL (1.40-6.50); %Basophils 0.9 % (0.0-1.0); %Eosinophils 3.7 % (0.0-10.0); %Lymphocytes 17.1 % (21.0-51.0); %Monocytes 13.1 % (0.0-10.0); %Neutrophils 65.1 % (42.0-75.0); Hemoglobin 11.6 g/dL (14.0-18.0); Mean Corpuscular HGB CONC 31.5 g/dL (32.0-36.0); Mean Corpuscular Hemoglobin 29.3 pg (27.0-31.0); Mean Corpuscular Volume 92.8 fL (78.0-98.0); Mean Platelet Volume 7.2 fL (7.4-10.4); Platelet Count 788 thou/uL (130-400); RBC Distribution Width 14.6 % (11.5-14.5); Red Blood Cell (RBC) Count 3.96 mill/uL (4.70-6.10); White Blood Cell (WBC) Count 19.3 thou/uL (4.8-10.8)
[2021-03-23 06:20] LABS: Anion Gap 20 mmol/L (10-20); BUN (Urea Nitrogen) 65 mg/dL (8.9-20.6); Calc. Creatinine Clearance 21 mL/min (70-130); Calcium 10.5 mg/dL (7.8-10.44); Carbon Dioxide 29 mmol/L (22-29); Chloride 91 mmol/L (98-107); Glucose 95 mg/dL (70-105); Potassium 5.4 mmol/L (3.5-5.1); Sodium 135 mmol/L (136-145)
[2021-03-23] MEDS: Calcium Acetate 667 MG CAP PO SCH ×3 (08:57→17:31)
[2021-03-23] MEDS: metroNIDAZOLE 500 MG TAB PO SCH ×3 (08:57→20:18)
[2021-03-23] MEDS: Calcitriol 0.25 MCG CAP PO SCH (12:49)
[2021-03-23] MEDS: Ferrous Sulfate 325 MG TAB PO SCH ×2 (12:49→20:17)
[2021-03-23] MEDS: Aspirin 81 mg Enteric Coated Tablet PO SCH (12:49)
[2021-03-23] MEDS: Heparin 5,000 UNITS/ML VIAL SC SCH ×2 (12:52→20:19)
[2021-03-23] MEDS: Carvedilol 3.125 MG TAB PO SCH ×2 (12:52→20:18)
[2021-03-23] MEDS: Amlodipine 10 MG TAB PO SCH (12:52)
[2021-03-23] MEDS: Senokot S 8.6-50 MG TAB PO SCH ×2 (12:53→20:17)
[2021-03-23] MEDS: HYDROcodone/Acetaminophen 5/325 mg Tablet PO PRN (16:13)
[2021-03-23] MEDS: Rosuvastatin 5 MG TAB PO SCH (20:21)
[2021-03-23] MEDS: Cefepime 0.5 GM, Admixture Fee 1 EACH in Sodium Chloride 0.9% 100 ML IVPB SCH (22:22)
[2021-03-24] MEDS: HYDROcodone/Acetaminophen 5/325 mg Tablet PO PRN ×3 (01:50→21:12)
[2021-03-24 05:56] LABS: Hemoglobin 11.5 g/dL (14.0-18.0); Mean Corpuscular HGB CONC 30.4 g/dL (32.0-36.0); Mean Corpuscular Hemoglobin 28.5 pg (27.0-31.0); Mean Corpuscular Volume 93.6 fL (78.0-98.0); Mean Platelet Volume 7.1 fL (7.4-10.4); Platelet Count 792 thou/uL (130-400); RBC Distribution Width 14.8 % (11.5-14.5); Red Blood Cell (RBC) Count 4.03 mill/uL (4.70-6.10)
[2021-03-24 06:18] LABS: Anion Gap 16 mmol/L (10-20); BUN (Urea Nitrogen) 44 mg/dL (8.9-20.6); Calc. Creatinine Clearance 28 mL/min (70-130); Calcium 10.4 mg/dL (7.8-10.44); Carbon Dioxide 28 mmol/L (22-29); Chloride 96 mmol/L (98-107); Glucose 101 mg/dL (70-105); Potassium 4.8 mmol/L (3.5-5.1); Sodium 135 mmol/L (136-145)
[2021-03-24 06:26] LABS: Band 1 % (5-11); Eosinophils 4 % (0-10); Lymphocytes 21 % (21-51); MDiff Complete? YES; Metamyelocyte 4 % (0-0); Monocytes 5 % (0-10); Neutrophil 65 % (42-75); Platelet Morphology Comment Appears Increased; White Blood Cell (WBC) Count 20.3 thou/uL (4.8-10.8)
[2021-03-24] MEDS: Cipro 250 MG TAB PO SCH ×2 (06:29→20:54)
[2021-03-24] MEDS: Acetaminophen 325 MG TAB PO PRN ×2 (07:48→23:33)
[2021-03-24] MEDS: Calcitriol 0.25 MCG CAP PO SCH (08:51)
[2021-03-24] MEDS: Senokot S 8.6-50 MG TAB PO SCH ×2 (08:51→20:54)
[2021-03-24] MEDS: Amlodipine 10 MG TAB PO SCH (08:51)
[2021-03-24] MEDS: Calcium Acetate 667 MG CAP PO SCH ×3 (08:51→17:01)
[2021-03-24] MEDS: Aspirin 81 mg Enteric Coated Tablet PO SCH (08:51)
[2021-03-24] MEDS: Carvedilol 3.125 MG TAB PO SCH ×2 (08:52→20:54)
[2021-03-24] MEDS: metroNIDAZOLE 500 MG TAB PO SCH ×3 (08:52→20:53)
[2021-03-24] MEDS: Ferrous Sulfate 325 MG TAB PO SCH ×2 (08:53→20:54)
[2021-03-24] MEDS: Heparin 5,000 UNITS/ML VIAL SC SCH ×2 (09:02→20:55)
[2021-03-24] MEDS: Rosuvastatin 5 MG TAB PO SCH (20:54)
[2021-03-24] MEDS: Cefepime 0.5 GM, Admixture Fee 1 EACH in Sodium Chloride 0.9% 100 ML IVPB SCH (23:34)
[2021-03-25] MEDS: Cipro 250 MG TAB PO SCH ×2 (06:21→21:05)
[2021-03-25] MEDS: Calcium Acetate 667 MG CAP PO SCH ×3 (08:11→16:57)
[2021-03-25] MEDS: metroNIDAZOLE 500 MG TAB PO SCH ×3 (08:11→21:05)
[2021-03-25] MEDS: Calcitriol 0.25 MCG CAP PO SCH (08:11)
[2021-03-25] MEDS: Senokot S 8.6-50 MG TAB PO SCH ×2 (08:11→21:05)
[2021-03-25] MEDS: Aspirin 81 mg Enteric Coated Tablet PO SCH (08:13)
[2021-03-25] MEDS: Amlodipine 10 MG TAB PO SCH (08:13)
[2021-03-25] MEDS: Carvedilol 3.125 MG TAB PO SCH ×2 (08:13→21:06)
[2021-03-25] MEDS: Ferrous Sulfate 325 MG TAB PO SCH ×2 (08:14→21:05)
[2021-03-25] MEDS: Heparin 5,000 UNITS/ML VIAL SC SCH ×2 (08:14→21:06)
[2021-03-25] MEDS: HYDROcodone/Acetaminophen 5/325 mg Tablet PO PRN (11:42)
[2021-03-25] MEDS: Acetaminophen 325 MG TAB PO PRN (16:56)
[2021-03-25] MEDS: Rosuvastatin 5 MG TAB PO SCH (21:06)
[2021-03-25] MEDS: Cefepime 0.5 GM, Admixture Fee 1 EACH in Sodium Chloride 0.9% 100 ML IVPB SCH (22:54)
[2021-03-26] MEDS: Cipro 250 MG TAB PO SCH ×2 (05:45→20:45)
[2021-03-26] MEDS: Acetaminophen 325 MG TAB PO PRN ×3 (05:45→22:57)
[2021-03-26 08:05] LABS: Hemoglobin 11.4 g/dL (14.0-18.0); Mean Corpuscular HGB CONC 31.4 g/dL (32.0-36.0); Mean Corpuscular Hemoglobin 28.8 pg (27.0-31.0); Mean Corpuscular Volume 91.7 fL (78.0-98.0); Platelet Count 910 thou/uL (130-400); RBC Distribution Width 14.7 % (11.5-14.5); Red Blood Cell (RBC) Count 3.95 mill/uL (4.70-6.10); White Blood Cell (WBC) Count 21.8 thou/uL (4.8-10.8)
[2021-03-26] MEDS: Ferrous Sulfate 325 MG TAB PO SCH ×2 (08:05→22:55)
[2021-03-26] MEDS: Senokot S 8.6-50 MG TAB PO SCH ×2 (08:05→20:45)
[2021-03-26] MEDS: Aspirin 81 mg Enteric Coated Tablet PO SCH (08:05)
[2021-03-26] MEDS: Calcitriol 0.25 MCG CAP PO SCH (08:05)
[2021-03-26] MEDS: metroNIDAZOLE 500 MG TAB PO SCH ×3 (08:05→20:44)
[2021-03-26] MEDS: Calcium Acetate 667 MG CAP PO SCH ×3 (08:05→18:05)
[2021-03-26] MEDS: Amlodipine 10 MG TAB PO SCH (08:06)
[2021-03-26] MEDS: Carvedilol 3.125 MG TAB PO SCH ×2 (08:06→20:45)
[2021-03-26] MEDS: Heparin 5,000 UNITS/ML VIAL SC SCH ×2 (08:06→20:46)
[2021-03-26 08:27] LABS: Anion Gap 20 mmol/L (10-20); BUN (Urea Nitrogen) 96 mg/dL (8.9-20.6); Calc. Creatinine Clearance 17 mL/min (70-130); Calcium 10.2 mg/dL (7.8-10.44); Carbon Dioxide 27 mmol/L (22-29); Chloride 93 mmol/L (98-107); Glucose 105 mg/dL (70-105); Potassium 5.5 mmol/L (3.5-5.1); Sodium 134 mmol/L (136-145)
[2021-03-26 08:40] LABS: #Basophils 0.2 thou/uL (0.0-0.2); #Eosinphils 0.8 thou/uL (0.0-0.7); #Lymphocytes 2.4 thou/uL (1.20-3.40); #Monocytes 2.5 thou/uL (0.11-0.59); #Neutrophils 15.9 thou/uL (1.40-6.50); %Basophils 0.7 % (0.0-1.0); %Eosinophils 3.6 % (0.0-10.0); %Lymphocytes 11.1 % (21.0-51.0); %Monocytes 11.5 % (0.0-10.0); %Neutrophils 73.2 % (42.0-75.0); MDiff Complete? YES; Platelet Morphology Comment Appears Increased; Polychromasia SLIGHT = 2-3 cells (100X) (0-2/hpf)
[2021-03-26] MEDS: Rosuvastatin 5 MG TAB PO SCH (20:46)
[2021-03-26] MEDS: Cefepime 0.5 GM, Admixture Fee 1 EACH in Sodium Chloride 0.9% 100 ML IVPB SCH (22:55)
[2021-03-27] MEDS: Cipro 250 MG TAB PO SCH ×2 (06:21→20:06)
[2021-03-27 06:53] LABS: #Basophils 0.2 thou/uL (0.0-0.2); #Eosinphils 0.6 thou/uL (0.0-0.7); #Lymphocytes 2.6 thou/uL (1.20-3.40); #Monocytes 2.7 thou/uL (0.11-0.59); #Neutrophils 15.4 thou/uL (1.40-6.50); %Basophils 0.9 % (0.0-1.0); %Lymphocytes 12.1 % (21.0-51.0); %Monocytes 12.3 % (0.0-10.0); %Neutrophils 71.7 % (42.0-75.0); Hemoglobin 11.7 g/dL (14.0-18.0); Mean Corpuscular HGB CONC 31.3 g/dL (32.0-36.0); Mean Corpuscular Hemoglobin 29.3 pg (27.0-31.0); Mean Corpuscular Volume 93.6 fL (78.0-98.0); Mean Platelet Volume 7.1 fL (7.4-10.4); Platelet Count 920 thou/uL (130-400); RBC Distribution Width 14.8 % (11.5-14.5); Red Blood Cell (RBC) Count 3.98 mill/uL (4.70-6.10); White Blood Cell (WBC) Count 21.5 thou/uL (4.8-10.8)
[2021-03-27 07:15] LABS: Anion Gap 18 mmol/L (10-20); BUN (Urea Nitrogen) 54 mg/dL (8.9-20.6); Calc. Creatinine Clearance 26 mL/min (70-130); Carbon Dioxide 27 mmol/L (22-29); Chloride 94 mmol/L (98-107); Glucose 99 mg/dL (70-105); Potassium 5.1 mmol/L (3.5-5.1); Sodium 134 mmol/L (136-145)
[2021-03-27] MEDS: Calcitriol 0.25 MCG CAP PO SCH (08:40)
[2021-03-27] MEDS: Carvedilol 3.125 MG TAB PO SCH ×2 (08:41→19:54)
[2021-03-27] MEDS: Ferrous Sulfate 325 MG TAB PO SCH ×2 (08:41→19:55)
[2021-03-27] MEDS: Calcium Acetate 667 MG CAP PO SCH ×3 (08:41→16:42)
[2021-03-27] MEDS: Aspirin 81 mg Enteric Coated Tablet PO SCH (08:41)
[2021-03-27] MEDS: Heparin 5,000 UNITS/ML VIAL SC SCH ×2 (08:41→19:59)
[2021-03-27] MEDS: Amlodipine 10 MG TAB PO SCH (08:42)
[2021-03-27] MEDS: metroNIDAZOLE 500 MG TAB PO SCH ×3 (08:42→19:54)
[2021-03-27] MEDS: Senokot S 8.6-50 MG TAB PO SCH ×2 (08:42→19:54)
[2021-03-27] MEDS: Rosuvastatin 5 MG TAB PO SCH (20:00)
[2021-03-27] MEDS: Acetaminophen 325 MG TAB PO PRN (20:29)
[2021-03-27] MEDS: Cefepime 0.5 GM, Admixture Fee 1 EACH in Sodium Chloride 0.9% 100 ML IVPB SCH (22:47)
[2021-03-28] MEDS: Cipro 250 MG TAB PO SCH ×2 (05:35→20:58)
[2021-03-28 07:34] LABS: Hemoglobin 11.3 g/dL (14.0-18.0); Mean Corpuscular HGB CONC 31.2 g/dL (32.0-36.0); Mean Corpuscular Volume 92.8 fL (78.0-98.0); Mean Platelet Volume 7.1 fL (7.4-10.4); Platelet Count 927 thou/uL (130-400); RBC Distribution Width 14.9 % (11.5-14.5); Red Blood Cell (RBC) Count 3.89 mill/uL (4.70-6.10); White Blood Cell (WBC) Count 19.3 thou/uL (4.8-10.8)
[2021-03-28] MEDS: Calcium Acetate 667 MG CAP PO SCH ×3 (07:48→18:00)
[2021-03-28 07:57] LABS: Anion Gap 20 mmol/L (10-20); BUN (Urea Nitrogen) 74 mg/dL (8.9-20.6); Calc. Creatinine Clearance 20 mL/min (70-130); Calcium 9.9 mg/dL (7.8-10.44); Carbon Dioxide 25 mmol/L (22-29); Chloride 95 mmol/L (98-107); Glucose 96 mg/dL (70-105); Potassium 5.1 mmol/L (3.5-5.1); Sodium 135 mmol/L (136-145)
[2021-03-28 08:26] LABS: #Basophils 0.1 thou/uL (0.0-0.2); #Eosinphils 0.6 thou/uL (0.0-0.7); #Lymphocytes 2.5 thou/uL (1.20-3.40); #Monocytes 2.2 thou/uL (0.11-0.59); #Neutrophils 13.8 thou/uL (1.40-6.50); %Basophils 0.8 % (0.0-1.0); %Eosinophils 3.3 % (0.0-10.0); %Lymphocytes 12.9 % (21.0-51.0); %Monocytes 11.6 % (0.0-10.0); %Neutrophils 71.5 % (42.0-75.0); MDiff Complete? YES; Platelet Morphology Comment Appears Increased; Polychromasia SLIGHT = 2-3 cells (100X) (0-2/hpf)
[2021-03-28] MEDS: Carvedilol 3.125 MG TAB PO SCH ×2 (09:00→20:55)
[2021-03-28] MEDS: metroNIDAZOLE 500 MG TAB PO SCH ×3 (09:00→20:55)
[2021-03-28] MEDS: Senokot S 8.6-50 MG TAB PO SCH ×2 (09:00→20:58)
[2021-03-28] MEDS: Amlodipine 10 MG TAB PO SCH (13:20)
[2021-03-28] MEDS: Aspirin 81 mg Enteric Coated Tablet PO SCH (13:21)
[2021-03-28] MEDS: Calcitriol 0.25 MCG CAP PO SCH (13:21)
[2021-03-28] MEDS: Ferrous Sulfate 325 MG TAB PO SCH ×2 (13:21→20:55)
[2021-03-28] MEDS: Heparin 5,000 UNITS/ML VIAL SC SCH ×2 (13:22→20:55)
[2021-03-28] MEDS: Acetaminophen 325 MG TAB PO PRN (13:27)
[2021-03-28] MEDS: Rosuvastatin 5 MG TAB PO SCH (20:55)
[2021-03-29] MEDS: Acetaminophen 325 MG TAB PO PRN ×3 (03:26→21:32)
[2021-03-29] MEDS: Cipro 250 MG TAB PO SCH ×2 (06:20→21:00)
[2021-03-29] MEDS: Ferrous Sulfate 325 MG TAB PO SCH ×2 (08:11→21:33)
[2021-03-29] MEDS: Calcium Acetate 667 MG CAP PO SCH ×3 (08:11→17:20)
[2021-03-29] MEDS: Carvedilol 3.125 MG TAB PO SCH ×2 (08:11→21:33)
[2021-03-29] MEDS: Aspirin 81 mg Enteric Coated Tablet PO SCH (08:11)
[2021-03-29] MEDS: Calcitriol 0.25 MCG CAP PO SCH (08:11)
[2021-03-29] MEDS: Heparin 5,000 UNITS/ML VIAL SC SCH ×2 (08:11→21:36)
[2021-03-29] MEDS: metroNIDAZOLE 500 MG TAB PO SCH ×3 (08:11→21:33)
[2021-03-29] MEDS: Amlodipine 10 MG TAB PO SCH (08:12)
[2021-03-29] MEDS: Senokot S 8.6-50 MG TAB PO SCH ×2 (08:12→21:35)
[2021-03-29 08:16] LABS: Anion Gap 18 mmol/L (10-20); BUN (Urea Nitrogen) 42 mg/dL (8.9-20.6); Calc. Creatinine Clearance 27 mL/min (70-130); Carbon Dioxide 29 mmol/L (22-29); Chloride 95 mmol/L (98-107); Glucose 103 mg/dL (70-105); Potassium 4.9 mmol/L (3.5-5.1); Sodium 137 mmol/L (136-145)
[2021-03-29 09:05] LABS: Hemoglobin 11.6 g/dL (14.0-18.0); Mean Corpuscular Hemoglobin 28.7 pg (27.0-31.0); Mean Corpuscular Volume 92.8 fL (78.0-98.0); Mean Platelet Volume 7.1 fL (7.4-10.4); Platelet Count 935 thou/uL (130-400); RBC Distribution Width 14.9 % (11.5-14.5); Red Blood Cell (RBC) Count 4.04 mill/uL (4.70-6.10)
[2021-03-29 09:12] LABS: Band 2 % (5-11); Eosinophils 2 % (0-10); Lymphocytes 16 % (21-51); MDiff Complete? YES; Monocytes 8 % (0-10); Neutrophil 70 % (42-75); Platelet Morphology Comment Appears Increased; RBC Morphology Normal
[2021-03-29] MEDS: Rosuvastatin 5 MG TAB PO SCH (21:35)
[2021-03-29] MEDS ORDERED: Morphine 4 MG/ML VIAL SLOW IVP SCH (23:45)
[2021-03-30] MEDS ORDERED: Morphine 4 MG/ML VIAL SLOW IVP SCH (04:30)
[2021-03-30] MEDS: Cipro 250 MG TAB PO SCH ×2 (05:33→20:37)
[2021-03-30 06:37] LABS: #Basophils 0.2 thou/uL (0.0-0.2); #Eosinphils 0.8 thou/uL (0.0-0.7); #Monocytes 2.4 thou/uL (0.11-0.59); #Neutrophils 12.7 thou/uL (1.40-6.50); %Eosinophils 3.8 % (0.0-10.0); %Lymphocytes 20.1 % (21.0-51.0); %Monocytes 12.1 % (0.0-10.0); Hemoglobin 11.2 g/dL (14.0-18.0); Mean Corpuscular Hemoglobin 30.3 pg (27.0-31.0); Mean Corpuscular Volume 91.9 fL (78.0-98.0); Mean Platelet Volume 6.9 fL (7.4-10.4); Platelet Count 952 thou/uL (130-400); RBC Distribution Width 14.9 % (11.5-14.5); White Blood Cell (WBC) Count 20.1 thou/uL (4.8-10.8)
[2021-03-30 07:11] LABS: Anion Gap 19 mmol/L (10-20); BUN (Urea Nitrogen) 56 mg/dL (8.9-20.6); Calc. Creatinine Clearance 21 mL/min (70-130); Calcium 9.8 mg/dL (7.8-10.44); Carbon Dioxide 25 mmol/L (22-29); Chloride 94 mmol/L (98-107); Glucose 88 mg/dL (70-105); Potassium 4.8 mmol/L (3.5-5.1); Sodium 133 mmol/L (136-145)
[2021-03-30] MEDS: Carvedilol 3.125 MG TAB PO SCH ×2 (09:41→20:38)
[2021-03-30] MEDS: Calcium Acetate 667 MG CAP PO SCH ×3 (09:41→17:37)
[2021-03-30] MEDS: Ferrous Sulfate 325 MG TAB PO SCH ×2 (09:41→20:38)
[2021-03-30] MEDS: metroNIDAZOLE 500 MG TAB PO SCH ×3 (09:42→20:37)
[2021-03-30] MEDS: Senokot S 8.6-50 MG TAB PO SCH ×2 (09:42→20:36)
[2021-03-30] MEDS: Aspirin 81 mg Enteric Coated Tablet PO SCH (12:27)
[2021-03-30] MEDS: Heparin 5,000 UNITS/ML VIAL SC SCH ×2 (12:27→20:33)
[2021-03-30] MEDS: Amlodipine 10 MG TAB PO SCH (12:27)
[2021-03-30] MEDS: Calcitriol 0.25 MCG CAP PO SCH (12:27)
[2021-03-30] MEDS: Acetaminophen 325 MG TAB PO PRN ×2 (15:39→20:36)
[2021-03-30 18:39] VITALS: BMI 25.2
[2021-03-30] MEDS: Rosuvastatin 5 MG TAB PO SCH (20:39)
[2021-03-31] MEDS: Acetaminophen 325 MG TAB PO PRN ×2 (01:42→05:57)
[2021-03-31] MEDS: HYDROcodone/Acetaminophen 5/325 mg Tablet PO PRN ×2 (03:13→20:41)
[2021-03-31] MEDS: Cipro 250 MG TAB PO SCH ×2 (05:58→20:48)
[2021-03-31 07:09] LABS: #Basophils 0.3 thou/uL (0.0-0.2); #Eosinphils 0.7 thou/uL (0.0-0.7); #Lymphocytes 3.6 thou/uL (1.20-3.40); #Neutrophils 12.2 thou/uL (1.40-6.50); %Basophils 1.5 % (0.0-1.0); %Eosinophils 3.9 % (0.0-10.0); %Monocytes 10.7 % (0.0-10.0); %Neutrophils 64.9 % (42.0-75.0); Mean Corpuscular HGB CONC 31.2 g/dL (32.0-36.0); Mean Platelet Volume 6.9 fL (7.4-10.4); Platelet Count 1027 thou/uL (130-400); Red Blood Cell (RBC) Count 4.14 mill/uL (4.70-6.10); White Blood Cell (WBC) Count 18.8 thou/uL (4.8-10.8)
[2021-03-31 07:25] LABS: Anion Gap 20 mmol/L (10-20); BUN (Urea Nitrogen) 38 mg/dL (8.9-20.6); Calc. Creatinine Clearance 15 mL/min (70-130); Calcium 10.3 mg/dL (7.8-10.44); Carbon Dioxide 27 mmol/L (22-29); Chloride 94 mmol/L (98-107); Glucose 98 mg/dL (70-105); Potassium 4.8 mmol/L (3.5-5.1); Sodium 136 mmol/L (136-145)
[2021-03-31] MEDS: metroNIDAZOLE 500 MG TAB PO SCH ×3 (08:40→20:40)
[2021-03-31] MEDS: Heparin 5,000 UNITS/ML VIAL SC SCH ×2 (08:40→20:40)
[2021-03-31] MEDS: Calcium Acetate 667 MG CAP PO SCH ×3 (08:40→16:00)
[2021-03-31] MEDS: Aspirin 81 mg Enteric Coated Tablet PO SCH (08:40)
[2021-03-31] MEDS: Carvedilol 3.125 MG TAB PO SCH ×2 (08:41→20:40)
[2021-03-31] MEDS: Amlodipine 10 MG TAB PO SCH (08:41)
[2021-03-31] MEDS: Calcitriol 0.25 MCG CAP PO SCH (08:41)
[2021-03-31] MEDS: Ferrous Sulfate 325 MG TAB PO SCH ×2 (08:41→20:40)
[2021-03-31] MEDS: Senokot S 8.6-50 MG TAB PO SCH ×2 (08:42→20:41)
[2021-03-31] MEDS ORDERED: Cipro 250 MG TAB PO SCH (20:30)
[2021-03-31] MEDS: Rosuvastatin 5 MG TAB PO SCH (20:40)
[2021-04-01] MEDS ORDERED: Morphine 4 MG/ML VIAL SLOW IVP SCH (01:15)
[2021-04-01] MEDS: HYDROcodone/Acetaminophen 5/325 mg Tablet PO PRN ×2 (05:19→22:09)
[2021-04-01] MEDS ORDERED: Cipro 250 MG TAB PO SCH (06:00)
[2021-04-01] MEDS: Senokot S 8.6-50 MG TAB PO SCH ×2 (09:15→20:59)
[2021-04-01] MEDS: Calcitriol 0.25 MCG CAP PO SCH (09:15)
[2021-04-01] MEDS: Heparin 5,000 UNITS/ML VIAL SC SCH ×2 (09:15→20:54)
[2021-04-01] MEDS: metroNIDAZOLE 500 MG TAB PO SCH (09:15)
[2021-04-01] MEDS: Ferrous Sulfate 325 MG TAB PO SCH (09:15)
[2021-04-01] MEDS: Amlodipine 10 MG TAB PO SCH (09:15)
[2021-04-01] MEDS: Carvedilol 3.125 MG TAB PO SCH ×2 (09:15→20:59)
[2021-04-01] MEDS: Calcium Acetate 667 MG CAP PO SCH ×3 (09:15→16:32)
[2021-04-01] MEDS: Aspirin 81 mg Enteric Coated Tablet PO SCH (09:15)
[2021-04-01 10:07] LABS: Hemoglobin 12.6 g/dL (14.0-18.0); Mean Corpuscular HGB CONC 31.5 g/dL (32.0-36.0); Mean Corpuscular Hemoglobin 29.4 pg (27.0-31.0); Mean Corpuscular Volume 93.1 fL (78.0-98.0); Platelet Count 1127 thou/uL (130-400); RBC Distribution Width 15.1 % (11.5-14.5); White Blood Cell (WBC) Count 19.2 thou/uL (4.8-10.8)
[2021-04-01 10:12] LABS: Anion Gap 25 mmol/L (10-20); BUN (Urea Nitrogen) 63 mg/dL (8.9-20.6); Calc. Creatinine Clearance 11 mL/min (70-130); Calcium 10.4 mg/dL (7.8-10.44); Carbon Dioxide 23 mmol/L (22-29); Chloride 90 mmol/L (98-107); Glucose 111 mg/dL (70-105); Potassium 4.5 mmol/L (3.5-5.1); Sodium 133 mmol/L (136-145)
[2021-04-01] MEDS ORDERED: Piperacillin/Tazobactam 3.375 GM in Sodium Chloride 0.9% 100 ML IVPB SCH (12:00)
[2021-04-01] MEDS: Rosuvastatin 5 MG TAB PO SCH (20:58)
[2021-04-01] MEDS: Piperacillin/Tazobactam 2.5 GM in Sodium Chloride 0.9% 100 ML IVPB SCH (20:59)
[2021-04-02] MEDS: Acetaminophen 325 MG TAB PO PRN (01:57)
[2021-04-02 06:24] LABS: Hemoglobin 11.3 g/dL (14.0-18.0); Mean Corpuscular HGB CONC 32.6 g/dL (32.0-36.0); Mean Corpuscular Hemoglobin 29.9 pg (27.0-31.0); Mean Corpuscular Volume 91.7 fL (78.0-98.0); Platelet Count 992 thou/uL (130-400); Red Blood Cell (RBC) Count 3.79 mill/uL (4.70-6.10)
[2021-04-02] MEDS: Piperacillin/Tazobactam 2.5 GM in Sodium Chloride 0.9% 100 ML IVPB SCH ×3 (06:33→21:30)
[2021-04-02 06:43] LABS: Anion Gap 23 mmol/L (10-20); BUN (Urea Nitrogen) 81 mg/dL (8.9-20.6); Calc. Creatinine Clearance 9 mL/min (70-130); Calcium 9.6 mg/dL (7.8-10.44); Carbon Dioxide 23 mmol/L (22-29); Chloride 89 mmol/L (98-107); Glucose 91 mg/dL (70-105); Sodium 130 mmol/L (136-145)
[2021-04-02] MEDS: Calcitriol 0.25 MCG CAP PO SCH (09:00)
[2021-04-02] MEDS: Calcium Acetate 667 MG CAP PO SCH ×4 (09:17→19:38)
[2021-04-02] MEDS: Aspirin 81 mg Enteric Coated Tablet PO SCH (09:18)
[2021-04-02] MEDS: Senokot S 8.6-50 MG TAB PO SCH ×2 (09:18→21:30)
[2021-04-02] MEDS: Amlodipine 10 MG TAB PO SCH (09:18)
[2021-04-02] MEDS: Heparin 5,000 UNITS/ML VIAL SC SCH ×2 (09:18→21:30)
[2021-04-02] MEDS: Carvedilol 3.125 MG TAB PO SCH ×3 (09:18→21:30)
[2021-04-02] MEDS ORDERED: Heparin 10,000 UNITS/ 10 ML VIAL ONE (10:50)
[2021-04-02] MEDS: HYDROcodone/Acetaminophen 5/325 mg Tablet PO PRN ×2 (11:55→21:41)
[2021-04-02] MEDS ORDERED: Fentanyl 250 MCG/5 ML VIAL ONE (15:30)
[2021-04-02] MEDS ORDERED: Lidocaine 2% PF 5 ML VIAL ONE (15:43)
[2021-04-02] MEDS ORDERED: Bupivacaine PF 0.5% 30 ML VIAL ONE (15:43)
[2021-04-02] MEDS ORDERED: Bacitracin Zinc Ointment 30 gm TUBE ONE (15:43)
[2021-04-02] MEDS ORDERED: Fentanyl 100 MCG/2 ML VIAL ONE (16:05)
[2021-04-02] MEDS ORDERED: Ondansetron PF 4 MG/2 ML Vial ONE (16:11)
[2021-04-02] MEDS ORDERED: PROPOFOL 200 MG/20 ML VIAL ONE (16:11)
[2021-04-02] MEDS ORDERED: Lidocaine 1% PF 5 ML VIAL ONE (16:11)
[2021-04-02] MEDS ORDERED: PHENYLEPHRINE-NS 100 MCG/ML 10 ML SYRINGE ONE (16:11)
[2021-04-02] MEDS ORDERED: Neomycin-Polymyxin 1 ML AMP ONE (16:29)
[2021-04-02] MEDS ORDERED: Promethazine HCl 25 MG/ML VIAL IM PRN (17:38)
[2021-04-02] MEDS ORDERED: Ondansetron HCl/PF 4 MG/2 ML Vial IVP PRN (17:38)
[2021-04-02] MEDS ORDERED: Promethazine HCl 25 MG/ML VIAL SLOW IVP PRN (17:38)
[2021-04-02] MEDS: Rosuvastatin 5 MG TAB PO SCH (21:29)
[2021-04-03] MEDS ORDERED: Morphine 4 MG/ML VIAL SLOW IVP SCH (01:15)
[2021-04-03] MEDS: Piperacillin/Tazobactam 2.5 GM in Sodium Chloride 0.9% 100 ML IVPB SCH ×3 (04:51→21:04)
[2021-04-03] MEDS: HYDROcodone/Acetaminophen 5/325 mg Tablet PO PRN ×3 (05:56→19:56)
[2021-04-03 06:39] LABS: Hemoglobin 11.3 g/dL (14.0-18.0); Mean Corpuscular HGB CONC 32.6 g/dL (32.0-36.0); Mean Corpuscular Hemoglobin 30.1 pg (27.0-31.0); Mean Corpuscular Volume 92.3 fL (78.0-98.0); Platelet Count 944 thou/uL (130-400); RBC Distribution Width 15.3 % (11.5-14.5); Red Blood Cell (RBC) Count 3.74 mill/uL (4.70-6.10); White Blood Cell (WBC) Count 19.7 thou/uL (4.8-10.8)
[2021-04-03 06:53] LABS: Anion Gap 16 mmol/L (10-20); BUN (Urea Nitrogen) 37 mg/dL (8.9-20.6); Calc. Creatinine Clearance 14 mL/min (70-130); Calcium 9.3 mg/dL (7.8-10.44); Carbon Dioxide 29 mmol/L (22-29); Chloride 96 mmol/L (98-107); Glucose 79 mg/dL (70-105); Potassium 5.2 mmol/L (3.5-5.1); Sodium 136 mmol/L (136-145)
[2021-04-03] MEDS: Calcium Acetate 667 MG CAP PO SCH ×3 (08:30→17:11)
[2021-04-03] MEDS: Calcitriol 0.25 MCG CAP PO SCH (08:31)
[2021-04-03] MEDS: Senokot S 8.6-50 MG TAB PO SCH ×2 (08:31→19:49)
[2021-04-03] MEDS: Aspirin 81 mg Enteric Coated Tablet PO SCH (08:31)
[2021-04-03] MEDS: Amlodipine 10 MG TAB PO SCH (08:32)
[2021-04-03] MEDS: Carvedilol 3.125 MG TAB PO SCH ×2 (08:33→19:49)
[2021-04-03] MEDS: Heparin 5,000 UNITS/ML VIAL SC SCH ×2 (08:39→19:49)
[2021-04-03] MEDS ORDERED: Vancomycin 1.5 GRAM/300 ML BAG 1.5 GM in Premix Bag 1 BAG IVPB SCH (16:15)
[2021-04-03] MEDS ORDERED: HOLD VANCOMYCIN FOR LEVEL >20 FS SCH (16:30)
[2021-04-03] MEDS ORDERED: Vancomycin HCl 500 MG in Sodium Chloride 0.9% 100 ML IVPB SCH (16:30)
[2021-04-03] MEDS ORDERED: Vancomycin HCl 750 MG in Sodium Chloride 0.9% 250 ML 250 ML IVPB SCH (16:30)
[2021-04-03] MEDS ORDERED: Vancomycin 1 GM in Premix Bag 1 BAG IVPB SCH (16:30)
[2021-04-03] MEDS ORDERED: VANCOMYCIN 1.25 GM/250 ML BAG 1.25 GM in Premix Bag 1 BAG IVPB SCH (16:30)
[2021-04-03] MEDS: Rosuvastatin 5 MG TAB PO SCH (19:49)
[2021-04-04] MEDS: HYDROcodone/Acetaminophen 5/325 mg Tablet PO PRN ×4 (01:23→20:52)
[2021-04-04] MEDS: Piperacillin/Tazobactam 2.5 GM in Sodium Chloride 0.9% 100 ML IVPB SCH ×2 (04:30→13:00)
[2021-04-04] MEDS: Senokot S 8.6-50 MG TAB PO SCH ×2 (09:58→20:46)
[2021-04-04] MEDS: Calcium Acetate 667 MG CAP PO SCH ×3 (09:58→16:57)
[2021-04-04] MEDS: Amlodipine 10 MG TAB PO SCH (09:58)
[2021-04-04 10:22] LABS: Vancomycin, Random 24.9 ug/mL (See Comment)
[2021-04-04] MEDS: Heparin 5,000 UNITS/ML VIAL SC SCH ×2 (13:00→20:46)
[2021-04-04] MEDS: Calcitriol 0.25 MCG CAP PO SCH (13:00)
[2021-04-04] MEDS: Aspirin 81 mg Enteric Coated Tablet PO SCH (13:00)
[2021-04-04] MEDS: Carvedilol 3.125 MG TAB PO SCH ×2 (13:04→20:46)
[2021-04-04 15:48] LABS: #Basophils 0.1 thou/uL (0.0-0.2); #Eosinphils 0.4 thou/uL (0.0-0.7); #Lymphocytes 1.6 thou/uL (1.20-3.40); #Monocytes 1.5 thou/uL (0.11-0.59); #Neutrophils 13.8 thou/uL (1.40-6.50); %Basophils 0.9 % (0.0-1.0); %Eosinophils 2.2 % (0.0-10.0); %Lymphocytes 9.1 % (21.0-51.0); %Monocytes 8.7 % (0.0-10.0); %Neutrophils 79.1 % (42.0-75.0); Hemoglobin 11.3 g/dL (14.0-18.0); Mean Corpuscular HGB CONC 31.6 g/dL (32.0-36.0); Mean Corpuscular Volume 91.6 fL (78.0-98.0); Mean Platelet Volume 6.6 fL (7.4-10.4); Platelet Count 892 thou/uL (130-400); RBC Distribution Width 15.1 % (11.5-14.5); Red Blood Cell (RBC) Count 3.92 mill/uL (4.70-6.10); White Blood Cell (WBC) Count 17.4 thou/uL (4.8-10.8)
[2021-04-04 16:08] LABS: ALT (SGPT) 13 U/L (8-55); AST (SGOT) 16 U/L (5-34); Albumin 3.8 g/dL (3.5-5.0); Alkaline Phosphatase 127 U/L (40-110); Anion Gap 17 mmol/L (10-20); BUN (Urea Nitrogen) 22 mg/dL (8.9-20.6); Bilirubin, Total 0.4 mg/dL (0.2-1.2); Calc. Creatinine Clearance 19 mL/min (70-130); Calcium 9.6 mg/dL (7.8-10.44); Carbon Dioxide 33 mmol/L (22-29); Chloride 93 mmol/L (98-107); Glucose 124 mg/dL (70-105); Potassium 4.8 mmol/L (3.5-5.1); Protein, Total 8.8 g/dL (6.0-8.3); Sodium 138 mmol/L (136-145)
[2021-04-04] MEDS: Meropenem 500 MG in Sodium Chloride 0.9% 100 ML IVPB SCH (17:01)
[2021-04-04] MEDS: Rosuvastatin 5 MG TAB PO SCH (20:45)
[2021-04-05] MEDS: HYDROcodone/Acetaminophen 5/325 mg Tablet PO PRN ×2 (05:10→16:57)
[2021-04-05 06:33] LABS: #Basophils 0.2 thou/uL (0.0-0.2); #Eosinphils 0.6 thou/uL (0.0-0.7); #Monocytes 2.3 thou/uL (0.11-0.59); #Neutrophils 11.8 thou/uL (1.40-6.50); %Basophils 0.9 % (0.0-1.0); %Eosinophils 3.5 % (0.0-10.0); %Lymphocytes 16.8 % (21.0-51.0); %Monocytes 12.9 % (0.0-10.0); %Neutrophils 65.9 % (42.0-75.0); Mean Corpuscular Volume 93.8 fL (78.0-98.0); Platelet Count 909 thou/uL (130-400); RBC Distribution Width 14.9 % (11.5-14.5); Red Blood Cell (RBC) Count 3.66 mill/uL (4.70-6.10); White Blood Cell (WBC) Count 17.9 thou/uL (4.8-10.8)
[2021-04-05] MEDS: Carvedilol 3.125 MG TAB PO SCH ×2 (08:19→20:35)
[2021-04-05] MEDS: Calcium Acetate 667 MG CAP PO SCH ×3 (08:19→16:57)
[2021-04-05] MEDS: Calcitriol 0.25 MCG CAP PO SCH (08:19)
[2021-04-05] MEDS: Senokot S 8.6-50 MG TAB PO SCH ×2 (08:19→20:35)
[2021-04-05] MEDS: Aspirin 81 mg Enteric Coated Tablet PO SCH (08:19)
[2021-04-05] MEDS: Amlodipine 10 MG TAB PO SCH (08:19)
[2021-04-05] MEDS: Heparin 5,000 UNITS/ML VIAL SC SCH ×2 (08:19→20:35)
[2021-04-05] MEDS: Meropenem 500 MG in Sodium Chloride 0.9% 100 ML IVPB SCH (16:59)
[2021-04-05] MEDS: Rosuvastatin 5 MG TAB PO SCH (20:35)
[2021-04-06 06:05] LABS: Hemoglobin 10.5 g/dL (14.0-18.0); Mean Corpuscular HGB CONC 30.7 g/dL (32.0-36.0); Mean Corpuscular Hemoglobin 28.3 pg (27.0-31.0); Mean Corpuscular Volume 92.1 fL (78.0-98.0); Mean Platelet Volume 6.9 fL (7.4-10.4); Platelet Count 891 thou/uL (130-400); RBC Distribution Width 14.9 % (11.5-14.5); Red Blood Cell (RBC) Count 3.72 mill/uL (4.70-6.10); White Blood Cell (WBC) Count 17.2 thou/uL (4.8-10.8)
[2021-04-06 06:26] LABS: Calc. Creatinine Clearance 11 mL/min (70-130); Potassium 4.8 mmol/L (3.5-5.1)
[2021-04-06] MEDS ORDERED: Heparin 10,000 UNITS/ 10 ML VIAL ONE (09:05)
[2021-04-06 09:14] LABS: Vancomycin, Random 20.1 ug/mL (See Comment)
[2021-04-06] MEDS: Amlodipine 10 MG TAB PO SCH (10:35)
[2021-04-06] MEDS: Calcium Acetate 667 MG CAP PO SCH ×3 (10:35→16:46)
[2021-04-06] MEDS: Heparin 5,000 UNITS/ML VIAL SC SCH ×2 (10:36→21:08)
[2021-04-06] MEDS: Carvedilol 3.125 MG TAB PO SCH ×2 (10:36→21:08)
[2021-04-06] MEDS: Calcitriol 0.25 MCG CAP PO SCH (10:36)
[2021-04-06] MEDS: Aspirin 81 mg Enteric Coated Tablet PO SCH (10:36)
[2021-04-06] MEDS: Senokot S 8.6-50 MG TAB PO SCH ×2 (10:37→21:08)
[2021-04-06] MEDS ORDERED: Vancomycin 1 GM/200 ML BAG ONE (13:02)
[2021-04-06] MEDS ORDERED: Bupivacaine PF 0.5% 30 ML VIAL ONE (13:13)
[2021-04-06] MEDS ORDERED: Lidocaine 1% w/Epinephrine 1:100K 20 ML VIAL ONE (13:13)
[2021-04-06] MEDS ORDERED: Propofol 500 MG/50 ML VIAL ONE (13:16)
[2021-04-06] MEDS ORDERED: Fentanyl 100 MCG/2 ML VIAL ONE (13:16)
[2021-04-06] MEDS ORDERED: PROPOFOL 200 MG/20 ML VIAL ONE (14:13)
[2021-04-06] MEDS ORDERED: Lidocaine 1% PF 5 ML VIAL ONE (14:13)
[2021-04-06] MEDS ORDERED: Ondansetron HCl/PF 4 MG/2 ML Vial IVP PRN (15:06)
[2021-04-06] MEDS ORDERED: Promethazine HCl 25 MG/ML VIAL SLOW IVP PRN (15:06)
[2021-04-06] MEDS ORDERED: Promethazine HCl 25 MG/ML VIAL IM PRN (15:06)
[2021-04-06] MEDS: Meropenem 500 MG in Sodium Chloride 0.9% 100 ML IVPB SCH (16:46)
[2021-04-06] MEDS: HYDROcodone/Acetaminophen 5/325 mg Tablet PO PRN ×2 (16:49→21:09)
[2021-04-06] MEDS: Rosuvastatin 5 MG TAB PO SCH (21:07)
[2021-04-07 06:16] LABS: Hemoglobin 10.2 g/dL (14.0-18.0); Mean Corpuscular HGB CONC 31.3 g/dL (32.0-36.0); Mean Corpuscular Volume 92.9 fL (78.0-98.0); Mean Platelet Volume 6.8 fL (7.4-10.4); Platelet Count 828 thou/uL (130-400); RBC Distribution Width 14.9 % (11.5-14.5); Red Blood Cell (RBC) Count 3.53 mill/uL (4.70-6.10); White Blood Cell (WBC) Count 16.4 thou/uL (4.8-10.8)
[2021-04-07] MEDS: Carvedilol 3.125 MG TAB PO SCH ×2 (08:11→21:43)
[2021-04-07] MEDS: Amlodipine 10 MG TAB PO SCH (08:11)
[2021-04-07] MEDS: Senokot S 8.6-50 MG TAB PO SCH ×2 (08:11→21:44)
[2021-04-07] MEDS: Calcitriol 0.25 MCG CAP PO SCH (08:11)
[2021-04-07] MEDS: Heparin 5,000 UNITS/ML VIAL SC SCH ×2 (08:11→21:44)
[2021-04-07] MEDS: Aspirin 81 mg Enteric Coated Tablet PO SCH (08:11)
[2021-04-07] MEDS: Calcium Acetate 667 MG CAP PO SCH ×3 (08:11→16:46)
[2021-04-07] MEDS: Meropenem 500 MG in Sodium Chloride 0.9% 100 ML IVPB SCH (16:49)
[2021-04-07] MEDS: Rosuvastatin 5 MG TAB PO SCH (21:43)
[2021-04-08 07:40] LABS: Hemoglobin 11.2 g/dL (14.0-18.0); Mean Corpuscular HGB CONC 32.1 g/dL (32.0-36.0); Mean Corpuscular Hemoglobin 29.6 pg (27.0-31.0); Mean Corpuscular Volume 92.3 fL (78.0-98.0); Platelet Count 855 thou/uL (130-400); RBC Distribution Width 15.1 % (11.5-14.5); Red Blood Cell (RBC) Count 3.77 mill/uL (4.70-6.10); White Blood Cell (WBC) Count 18.9 thou/uL (4.8-10.8)
[2021-04-08] MEDS: Calcium Acetate 667 MG CAP PO SCH ×3 (08:04→17:17)
[2021-04-08] MEDS: Senokot S 8.6-50 MG TAB PO SCH ×2 (08:04→20:25)
[2021-04-08] MEDS: Calcitriol 0.25 MCG CAP PO SCH (08:05)
[2021-04-08] MEDS: Heparin 5,000 UNITS/ML VIAL SC SCH ×2 (08:05→20:24)
[2021-04-08] MEDS: Carvedilol 3.125 MG TAB PO SCH ×2 (08:05→20:24)
[2021-04-08] MEDS: Aspirin 81 mg Enteric Coated Tablet PO SCH (08:05)
[2021-04-08] MEDS: Amlodipine 10 MG TAB PO SCH (08:05)
[2021-04-08] MEDS: Meropenem 500 MG in Sodium Chloride 0.9% 100 ML IVPB SCH (17:17)
[2021-04-08] MEDS: Rosuvastatin 5 MG TAB PO SCH (20:25)
[2021-04-09 05:57] LABS: #Basophils 0.2 thou/uL (0.0-0.2); #Eosinphils 0.8 thou/uL (0.0-0.7); #Lymphocytes 2.5 thou/uL (1.20-3.40); #Monocytes 1.8 thou/uL (0.11-0.59); #Neutrophils 10.4 thou/uL (1.40-6.50); %Eosinophils 4.9 % (0.0-10.0); %Lymphocytes 15.8 % (21.0-51.0); %Monocytes 11.6 % (0.0-10.0); %Neutrophils 66.7 % (42.0-75.0); Hemoglobin 10.5 g/dL (14.0-18.0); Mean Corpuscular HGB CONC 32.2 g/dL (32.0-36.0); Mean Corpuscular Hemoglobin 29.4 pg (27.0-31.0); Mean Corpuscular Volume 91.1 fL (78.0-98.0); Mean Platelet Volume 6.7 fL (7.4-10.4); Platelet Count 706 thou/uL (130-400); RBC Distribution Width 14.9 % (11.5-14.5); Red Blood Cell (RBC) Count 3.57 mill/uL (4.70-6.10); White Blood Cell (WBC) Count 15.6 thou/uL (4.8-10.8)
[2021-04-09 06:11] LABS: Anion Gap 20 mmol/L (10-20); BUN (Urea Nitrogen) 69 mg/dL (8.9-20.6); Calc. Creatinine Clearance 8 mL/min (70-130); Calcium 9.7 mg/dL (7.8-10.44); Carbon Dioxide 26 mmol/L (22-29); Chloride 93 mmol/L (98-107); Glucose 105 mg/dL (70-105); Sodium 134 mmol/L (136-145)
[2021-04-09 08:30] LABS: Vancomycin, Random 27.5 ug/mL (See Comment)
[2021-04-09] MEDS ORDERED: Heparin 10,000 UNITS/ 10 ML VIAL ONE (09:09)
[2021-04-09] MEDS: Calcium Acetate 667 MG CAP PO SCH ×3 (10:49→16:58)
[2021-04-09] MEDS: Amlodipine 10 MG TAB PO SCH (10:49)
[2021-04-09] MEDS: Aspirin 81 mg Enteric Coated Tablet PO SCH (10:50)
[2021-04-09] MEDS: Calcitriol 0.25 MCG CAP PO SCH (10:50)
[2021-04-09] MEDS: Carvedilol 3.125 MG TAB PO SCH ×2 (10:50→20:32)
[2021-04-09] MEDS: Heparin 5,000 UNITS/ML VIAL SC SCH ×2 (10:51→20:32)
[2021-04-09] MEDS: Senokot S 8.6-50 MG TAB PO SCH ×2 (10:51→20:32)
[2021-04-09] MEDS: Meropenem 500 MG in Sodium Chloride 0.9% 100 ML IVPB SCH (16:59)
[2021-04-09] MEDS: Rosuvastatin 5 MG TAB PO SCH (20:31)
[2021-04-10 06:32] LABS: #Basophils 0.2 thou/uL (0.0-0.2); #Eosinphils 0.7 thou/uL (0.0-0.7); #Monocytes 1.8 thou/uL (0.11-0.59); #Neutrophils 10.8 thou/uL (1.40-6.50); %Basophils 1.2 % (0.0-1.0); %Eosinophils 4.4 % (0.0-10.0); %Monocytes 11.1 % (0.0-10.0); %Neutrophils 65.4 % (42.0-75.0); Hemoglobin 11.1 g/dL (14.0-18.0); Mean Corpuscular HGB CONC 31.7 g/dL (32.0-36.0); Mean Corpuscular Hemoglobin 29.2 pg (27.0-31.0); Mean Corpuscular Volume 92.1 fL (78.0-98.0); Platelet Count 780 thou/uL (130-400); RBC Distribution Width 14.9 % (11.5-14.5); Red Blood Cell (RBC) Count 3.81 mill/uL (4.70-6.10); White Blood Cell (WBC) Count 16.5 thou/uL (4.8-10.8)
[2021-04-10 06:53] LABS: Anion Gap 17 mmol/L (10-20); BUN (Urea Nitrogen) 43 mg/dL (8.9-20.6); Calc. Creatinine Clearance 13 mL/min (70-130); Calcium 9.9 mg/dL (7.8-10.44); Carbon Dioxide 31 mmol/L (22-29); Chloride 94 mmol/L (98-107); Glucose 88 mg/dL (70-105); Potassium 5.2 mmol/L (3.5-5.1); Sodium 137 mmol/L (136-145)
[2021-04-10] MEDS: Heparin 5,000 UNITS/ML VIAL SC SCH ×2 (08:18→20:44)
[2021-04-10] MEDS: Senokot S 8.6-50 MG TAB PO SCH ×2 (08:19→20:44)
[2021-04-10] MEDS: Calcitriol 0.25 MCG CAP PO SCH (08:19)
[2021-04-10] MEDS: Amlodipine 10 MG TAB PO SCH (08:19)
[2021-04-10] MEDS: Aspirin 81 mg Enteric Coated Tablet PO SCH (08:19)
[2021-04-10] MEDS: Calcium Acetate 667 MG CAP PO SCH ×3 (08:19→17:08)
[2021-04-10] MEDS: Carvedilol 3.125 MG TAB PO SCH ×2 (08:19→20:44)
[2021-04-10] MEDS: Meropenem 500 MG in Sodium Chloride 0.9% 100 ML IVPB SCH (17:08)
[2021-04-10] MEDS: Rosuvastatin 5 MG TAB PO SCH (20:43)
[2021-04-11] MEDS: HYDROcodone/Acetaminophen 5/325 mg Tablet PO PRN ×2 (00:41→20:46)
[2021-04-11 06:13] LABS: Hemoglobin 10.7 g/dL (14.0-18.0); Mean Corpuscular HGB CONC 33.1 g/dL (32.0-36.0); Mean Corpuscular Hemoglobin 30.3 pg (27.0-31.0); Mean Corpuscular Volume 91.4 fL (78.0-98.0); Mean Platelet Volume 6.8 fL (7.4-10.4); Platelet Count 697 thou/uL (130-400); RBC Distribution Width 14.9 % (11.5-14.5); Red Blood Cell (RBC) Count 3.52 mill/uL (4.70-6.10); White Blood Cell (WBC) Count 14.8 thou/uL (4.8-10.8)
[2021-04-11 06:16] LABS: #Basophils 0.1 thou/uL (0.0-0.2); #Eosinphils 0.7 thou/uL (0.0-0.7); #Lymphocytes 4.3 thou/uL (1.20-3.40); #Monocytes 1.8 thou/uL (0.11-0.59); #Neutrophils 8.6 thou/uL (1.40-6.50); %Eosinophils 4.3 % (0.0-10.0); %Lymphocytes 27.8 % (21.0-51.0); %Monocytes 11.3 % (0.0-10.0); %Neutrophils 55.6 % (42.0-75.0); Hemoglobin 10.6 g/dL (14.0-18.0); Mean Corpuscular HGB CONC 33.9 g/dL (32.0-36.0); Mean Corpuscular Hemoglobin 30.9 pg (27.0-31.0); Mean Corpuscular Volume 91.4 fL (78.0-98.0); Mean Platelet Volume 7.1 fL (7.4-10.4); Platelet Count 681 thou/uL (130-400); RBC Distribution Width 14.9 % (11.5-14.5); Red Blood Cell (RBC) Count 3.41 mill/uL (4.70-6.10); White Blood Cell (WBC) Count 15.5 thou/uL (4.8-10.8)
[2021-04-11 06:35] LABS: Anion Gap 20 mmol/L (10-20); BUN (Urea Nitrogen) 65 mg/dL (8.9-20.6); Calc. Creatinine Clearance 10 mL/min (70-130); Calcium 9.5 mg/dL (7.8-10.44); Carbon Dioxide 27 mmol/L (22-29); Chloride 95 mmol/L (98-107); Glucose 92 mg/dL (70-105); Potassium 4.8 mmol/L (3.5-5.1); Sodium 137 mmol/L (136-145)
[2021-04-11] MEDS: Calcium Acetate 667 MG CAP PO SCH ×3 (08:00→17:16)
[2021-04-11 08:37] LABS: Vancomycin, Random 14.8 ug/mL (See Comment)
[2021-04-11] MEDS: Heparin 5,000 UNITS/ML VIAL SC SCH ×2 (09:00→20:44)
[2021-04-11] MEDS: Calcitriol 0.25 MCG CAP PO SCH (12:42)
[2021-04-11] MEDS: Carvedilol 3.125 MG TAB PO SCH ×2 (12:42→20:43)
[2021-04-11] MEDS: Aspirin 81 mg Enteric Coated Tablet PO SCH (12:42)
[2021-04-11] MEDS: Amlodipine 10 MG TAB PO SCH (12:43)
[2021-04-11] MEDS: Senokot S 8.6-50 MG TAB PO SCH ×2 (12:43→20:43)
[2021-04-11] MEDS: Meropenem 500 MG in Sodium Chloride 0.9% 100 ML IVPB SCH (17:16)
[2021-04-11] MEDS: Rosuvastatin 5 MG TAB PO SCH (20:43)
[2021-04-12 06:14] LABS: #Basophils 0.2 thou/uL (0.0-0.2); #Eosinphils 0.7 thou/uL (0.0-0.7); #Lymphocytes 4.2 thou/uL (1.20-3.40); #Monocytes 1.7 thou/uL (0.11-0.59); #Neutrophils 7.7 thou/uL (1.40-6.50); %Basophils 1.2 % (0.0-1.0); %Eosinophils 4.7 % (0.0-10.0); %Monocytes 11.7 % (0.0-10.0); %Neutrophils 53.4 % (42.0-75.0); Hemoglobin 10.8 g/dL (14.0-18.0); Mean Corpuscular HGB CONC 31.1 g/dL (32.0-36.0); Mean Corpuscular Hemoglobin 28.8 pg (27.0-31.0); Mean Corpuscular Volume 92.6 fL (78.0-98.0); Mean Platelet Volume 6.9 fL (7.4-10.4); Platelet Count 745 thou/uL (130-400); Red Blood Cell (RBC) Count 3.75 mill/uL (4.70-6.10); White Blood Cell (WBC) Count 14.4 thou/uL (4.8-10.8)
[2021-04-12 06:31] LABS: Anion Gap 15 mmol/L (10-20); BUN (Urea Nitrogen) 37 mg/dL (8.9-20.6); Calc. Creatinine Clearance 14 mL/min (70-130); Calcium 9.8 mg/dL (7.8-10.44); Carbon Dioxide 31 mmol/L (22-29); Chloride 95 mmol/L (98-107); Glucose 87 mg/dL (70-105); Potassium 4.9 mmol/L (3.5-5.1); Sodium 136 mmol/L (136-145)
[2021-04-12] MEDS: Senokot S 8.6-50 MG TAB PO SCH ×2 (08:06→21:17)
[2021-04-12] MEDS: Carvedilol 3.125 MG TAB PO SCH ×2 (08:06→21:17)
[2021-04-12] MEDS: Amlodipine 10 MG TAB PO SCH (08:06)
[2021-04-12] MEDS: Calcitriol 0.25 MCG CAP PO SCH (08:06)
[2021-04-12] MEDS: Calcium Acetate 667 MG CAP PO SCH ×3 (08:06→17:20)
[2021-04-12] MEDS: Aspirin 81 mg Enteric Coated Tablet PO SCH (08:07)
[2021-04-12] MEDS: Heparin 5,000 UNITS/ML VIAL SC SCH ×2 (08:07→21:17)
[2021-04-12] MEDS: Meropenem 500 MG in Sodium Chloride 0.9% 100 ML IVPB SCH (17:20)
[2021-04-12] MEDS: Rosuvastatin 5 MG TAB PO SCH (21:17)
[2021-04-13 05:51] LABS: Hemoglobin 10.5 g/dL (14.0-18.0); Mean Corpuscular HGB CONC 32.2 g/dL (32.0-36.0); Mean Corpuscular Hemoglobin 29.8 pg (27.0-31.0); Mean Corpuscular Volume 92.5 fL (78.0-98.0); Mean Platelet Volume 7.2 fL (7.4-10.4); Platelet Count 705 thou/uL (130-400); Red Blood Cell (RBC) Count 3.54 mill/uL (4.70-6.10); White Blood Cell (WBC) Count 14.9 thou/uL (4.8-10.8)
[2021-04-13 07:35] VITALS: BP 125/80; TEMP 98
[2021-04-13] MEDS: Senokot S 8.6-50 MG TAB PO SCH (07:53)
[2021-04-13] MEDS: Calcium Acetate 667 MG CAP PO SCH ×3 (07:53→16:02)
[2021-04-13] MEDS: Amlodipine 10 MG TAB PO SCH (07:53)
[2021-04-13] MEDS: Calcitriol 0.25 MCG CAP PO SCH (07:54)
[2021-04-13] MEDS: Carvedilol 3.125 MG TAB PO SCH (07:54)
[2021-04-13] MEDS: Aspirin 81 mg Enteric Coated Tablet PO SCH (07:54)
[2021-04-13] MEDS: Heparin 5,000 UNITS/ML VIAL SC SCH (07:54)
[2021-04-13] MEDS ORDERED: EPOETIN ALFA-EPBX (ESRD) 4,000 UNIT/ML VIAL SC SCH (11:00)
[2021-04-13] MEDS: Meropenem 500 MG in Sodium Chloride 0.9% 100 ML IVPB SCH (16:00)
== END 2021-04-13 17:22 | disposition home or self-care (01) | DRG 853 ==
LOC: ERS 18:37 → T4-B 23:49
PROVIDERS: ADMIT Internal Medicine; ATTEND Internal Medicine
PROC: 5A1D70Z Performance of Urinary Filtration, Intermittent, Less than 6 Hours Per Day (ICD-10-PCS; 2021-03-12)
PROC: 0Y6W0Z0 Detachment at Left 4th Toe, Complete, Open Approach (ICD-10-PCS; principal; 2021-03-16)
PROC: 0QBP0ZZ Excision of Left Metatarsal, Open Approach (ICD-10-PCS; 2021-04-02)
PROC: 06HY33Z Insertion of Infusion Device into Lower Vein, Percutaneous Approach (ICD-10-PCS; 2021-04-06)
PROC: 0JH63XZ Insertion of Tunneled Vascular Access Device into Chest Subcutaneous Tissue and Fascia, Percutaneous Approach (ICD-10-PCS; 2021-04-06)
DX: A41.53 Sepsis due to Serratia (principal); N18.6 End stage renal disease; E11.52 Type 2 diabetes mellitus with diabetic peripheral angiopathy with gangrene; I96 Gangrene, not elsewhere classified; I12.0 Hypertensive chronic kidney disease with stage 5 chronic kidney disease or end stage renal disease; E87.1 Hypo-osmolality and hyponatremia; M86.172 Other acute osteomyelitis, left ankle and foot; Z16.29 Resistance to other single specified antibiotic; N25.81 Secondary hyperparathyroidism of renal origin; I82.C13 Acute embolism and thrombosis of internal jugular vein, bilateral; A41.1 Sepsis due to other specified staphylococcus; E11.628 Type 2 diabetes mellitus with other skin complications; L03.032 Cellulitis of left toe; E11.69 Type 2 diabetes mellitus with other specified complication; Z20.822 Contact with and (suspected) exposure to COVID-19; D47.3 Essential (hemorrhagic) thrombocythemia; E83.39 Other disorders of phosphorus metabolism; E87.6 Hypokalemia; D63.1 Anemia in chronic kidney disease; E78.5 Hyperlipidemia, unspecified; E11.22 Type 2 diabetes mellitus with diabetic chronic kidney disease; M60.9 Myositis, unspecified; E87.5 Hyperkalemia; Z79.82 Long term (current) use of aspirin; Z99.2 Dependence on renal dialysis; Z79.899 Other long term (current) drug therapy; H26.9 Unspecified cataract
CPT/HCPCS: 36415; 36416; 71045; 76000; 80048; 80053; 80202; 81270; 82565; 83605; 84132; 85007; 85025; 85027; 85610; 85730; 87040; 87070; 87076; 87077; 87186; 87205; 90935; 93005; 93923; 96365; 96375; C1751; G0257; J0692; J1580; J1642; J1644; J2001; J2185; J2270; J2405; J2543; J2704; J3010; J3370; J3490; J7050; Q5105; S0020; U0003; U0005